=== PATIENT | female | born 1955 | race Caucasian/White ===

== ENCOUNTER 2018-01-22 10:05 | Inpatient (IN) | payer OTHER, MEDICARE ==
[~2018-01-22] VITALS: Ht 162.6 cm; Wt 68.0 kg
[~2018-01-22 10:05] MED LIST: ASACOL400 MG PO; ASPIRIN EC81 M1 PO; ATORVASTATIN CA10 MG; ATORVASTATIN CA10 MG PO; AUGMENTIN 875875 MG PO; BENADRYL ALLERG25 MG PO; BENZTROPINE ME0.5 M1 PO; BENZTROPINE1 MG PO; GABAPENTIN TAB600 MG PO; GABAPENTIN300 M2 PO; GABAPENTIN300 MG; HALOPERIDOL10 M1 PO; LEVOTHROID0.1 MG PO; LEVOTHYROXINE0.1 MG PO; LEVOTHYROXINE0.2 M2; LEVOTHYROXINE0.2 M2 PO; LEVOTHYROXINE0.2 MG PO; LEVOTHYROXINE100 MC1 PO; LEVOTHYROXINE150 MCG PO; LEVOTHYROXINE25 MCG PO; LIPITOR40 M1 PO; LITHIUM CARB300 MG PO; LITHIUM CARBON300 M3; LITHIUM CARBON300 M3 PO; LITHIUM CARBON300 M4 PO; LITHIUM CARBON450 MG PO; METFORMIN HCL1000 M1 PO; METFORMIN HCL500 MG PO; METFORMIN HYDR500 M1; OLANZAPINE15 MG; OLANZAPINE15 MG PO; PROPRANOLOL HCL10 M1 PO; QUETIAPINE FUM200 MG; QUETIAPINE FUM300 MG PO; RISPERIDONE2 M1 PO; SEROQUEL (MONO200 MG PO; SYNTHROID137 MCG PO; TEGRETOL XR200 M1 PO; TRAZODONE HCL50 M1 PO; ZOCOR40 M1 PO
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
[2018-01-22 11:33] LABS: ABSOLUTE BASOPHIL COUNT 0 /CUMM (0.0-0.2); ABSOLUTE EOSINOPHIL COUNT 0 /CUMM (0.0-0.7); ABSOLUTE LYMPH COUNT 1.3 /CUMM (1.2-3.4); ABSOLUTE MONOCYTE COUNT 0.7 /CUMM (0.10-0.60); BASOPHIL % 0.4 % (0.0-2.0); EOSINOPHIL % 0.2 % (0-5); GRANULOCYTE % 74.2 % (42.2-75.2); HEMATOCRIT 41.3 % (37-47); MEAN CORPUSCULAR HGB 31.1 PG (27.0-31.0); MEAN CORPUSCULAR HGB CONC 33.5 G/DL (33.0-37.0); MEAN CORPUSCULAR VOLUME 92.8 FL (81.0-99.0); MEAN PLATELET VOLUME 7.9 FL (7.4-10.4); PLATELET COUNT 171 /CUMM (130-400); RBC DISTRIBUTION WIDTH 15.1 % (11.5-14.5); RED BLOOD CELL CT 4.45 /CUMM (4.20-5.40); WHITE BLOOD CELL COUNT 8.1 /CUMM (4.8-10.8)
--- NOTE | 2018-01-22 21:37 | ED PSY CRISIS COLLATERAL NOTE ---
Collateral Note Collateral Note Family/Inform/Avril Contacts: The niece Erma Vieira [phone] states the patient has been making suicidal comments stating I want to . The niece reports having a conversation with her daughter Luci to call 911 to address her thoughts of suicide. She reports the patient being depressed and homeless and was living in a pay by night hotel.
--- NOTE | 2018-01-22 21:38 | ED PSYCH CRISIS CONSULTATION ---
Crisis Consult Basic Assessment Date of Consult: 01/22/18 Responsible Person/Accompanied By: self Insurance Authorization: Insurance #1: Insurance name: MEDICARE A Phone number: Policy number: [id number] Group number: Authorization number: ED Provider: Patient's ED Provider: Solitario Keita DO Primary Care Physician: Patient's PCP: Hadley Linda MD PCP's Current Psychiatrist: Cayden Reyes MD Chief Complaint: Psychiatric Related Complaint Patient's Quote: " I had to " Present Illness: Patient is a 63 year old female BIBA on a PEER for suicide ideation after her daughter and niece called 911. Patient is homeless and was sleeping in her car at her daughter home in the driveway. The niece states the patient has been making suicidal comments stating I want to . The niece reports the patient has been sleeping at pay by [employer] hotels for a few months and most recently living in her car. This clinician met with patient who presents as delusional, disorganized, and depressed. The patient reports my Fernandez is my doctor and reports previous psychiatric admission not loving my . The patient reports hearing voices in her head for a few weeks stating I had to . " I will have my kill me". The patient has a long history of psychiatric hospitalization at [facility] dating back to 2009. The patient was a poor historian and unable to provide a treatment history. The patient provided a negative toxicology screen and denied any substance abuse treatment and history. Patient's Address: [address] [place] [address] Other Phone Number: Who Do You Live With? Other (see notes) (homeless living a car) Family/Informants Interviewed: Niece Erma Vieira [phone] Allergies - Coded Allergies: olanzapine (Severe, PT REPORTS IT MADE HER LAME LED TO HOSPITALAZATION 12/20/15) Current Medications - Scheduled Medications Aspirin (Ecotrin*) 81 MG TABLET. 1 TAB PO DAILY HEART/BLOOD (Reported) Entered as Reported by ELY SILVESTRE MD on 06/28/14 1128 Atorvastatin Calcium (Lipitor) 40 MG TABLET 1 TAB PO QPM CHOLESTEROL ( Reported) Entered as Reported by Ciara Zurita on 08/08/161957 Benztropine Mesylate 0.5 MG TABLET 1 TAB PO QAM AKATHISIA #90 (Reported) Entered as Reported by Ciara Zurita on 08/08/161919 Benztropine Mesylate 0.5 MG TABLET 2 TAB PO QPM AKATHISIA (Reported) Entered as Reported by Ciara Zurita on 08/08/161920 Carbamazepine (Tegretol XR) 200 MG TAB.ER.12H 1 TAB PO BID MENTAL HEALTH #60 (Reported) Entered as Reported by Ciara Zurita on 08/08/161999 Levothyroxine Sodium (Synthroid) 137 MCG TABLET 1 TAB PO DAILY THYROID ( Reported) Entered as Reported by Ciara Zurita on 08/08/161958 Metformin HCl 1,000 MG TABLET 1 TAB PO BID DIABETES #60 (Reported) Entered as Reported by Hafsa James on 06/02/16 170 Propranolol HCl 10 MG TABLET 1 TAB PO BID BP (Reported) Entered as Reported by Ciara Zurita on 08/08/161922 Risperidone 2 MG TABLET 1 TAB PO BID MENTAL HEALTH #60 (Reported) Entered as Reported by Ciara Zurita on 08/08/161958 Scheduled PRN Medications Trazodone HCl 50 MG TABLET 1 TAB PO QHS PRN MENTAL HEALTH/SLEEP (Reported) Entered as Reported by Ciara Zurita on 08/08/162000 Laboratory Results: Laboratory Tests 01/22/18 1830: Urine Opiates Screen < 100, Methadone Screen < 40, Barbiturate Screen < 60, Ur Phencyclidine Scrn < 6.00, Amphetamines Screen < 100, U Benzodiazepines Scrn < 85, Urine Cocaine Screen < 50, Urine Cannabis Screen < 5.00 01/22/18 1643: Lipase Cancelled 01/22/18 1120: Anion Gap 17 H, Estimated GFR > 60, BUN/Creatinine Ratio 36.7 H, Glucose 110 H, Calcium 9.5, CBC w Diff NO MAN DIFF REQ, RBC 4.45, MCV 92.8, MCH 31.1 H, MCHC 33.5, RDW 15.1 H, MPV 7.9, Gran % 74.2, Lymphocytes % 16.3 L, Monocytes % 8.9, Eosinophils % 0.2, Basophils % 0.4, Absolute Granulocytes 6.0, Absolute Lymphocytes 1.3, Absolute Monocytes 0.7 H, Absolute Eosinophils 0, Absolute Basophils 0, Serum Alcohol < 10.0 Past History Past Medical History Neurological: NONE (3 older sibs have Parkinson's), peripheral neuropathy EENT: NONE Cardiovascular: hypertension, hyperlipidemia Respiratory: NONE Gastrointestinal: NONE Hepatic: NONE Renal: NONE Musculoskeletal: NONE Psychiatric: depression, schizo affective disorder Endocrine: Hypothyroidism Blood Disorders: NONE Cancer(s): NONE 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 Past Surgical History Surgical History: non-contributory Psychosocial History Strengths/Capabilities: Supportive family Physical Limitations (Interventions): none Psychiatric Treatment History Psych Treatment Psychiatric Treatment Yes Inpatient Treatment Yes Outpatient Treatment Yes Location of Treatment [facility] Reason for Treatment Schizoaffective disorder Dates of Treatment 2016 Response to Treatment poor Diagnosis by History: Schizoaffective Disorder bipolar type Substance Use/Abuse History Drug Use/Abuse Substances Used/Abused No First Use none Last Used none How much used/taken none How often none For how long none Route of use none Substance Abuse Treatment Substance Abuse Treatment Past Substance Abuse [place] No Inpatient Treatment No Outpatient Treatment No Location of Treatment none Reason for Treatment none Dates of Treatment none Current Mental Status Mental Status Orientation: Person, Place Affect: Depressed, Hopeless, Sad Speech: Soft Neuro-vegetative: Appetite Decreased Appearance Appearance- Dress/Hygiene: Dressed in hospital clothing Behaviors Thought Process: Disorganized Thought Content: Auditory Hallucinations Memory: Short term memory Insight: Poor SI/HI Risk Assessment Past Suicidal Ideation/Attempts Yes Current Suicidal Ideation/Att Yes Past Homicidal Ideation/Att: No Current Homicidal Ideation/Attempts No Degree of Intent: Plan, States Intent Danger To: Self Gravely Disabled: Inability, Lack of Insight, Poor Impulse Control, Poor Judgment Risk Factors: age (under 24/over 65), SA/MH hospitalized Lethality Ratin PTSD Checklist PTSD Score: PTSD Score: Response Value Disturbing memories,thoughts,images of stressful experience? Not at all 1 Disturbing dreams of stressful experience from past? Not at all 1 Suddenly acting/feeling as if reliving stressful experience? Not at all 1 Total 3 PTSD Done? pt unable to participate ED Management Sitter: Yes Restraints: No DSM5/PS Stressors/Medical Prob Diagnosis' (DSM 5, Stressors, Medical): Schizoaffective Bipoarl Type F25.9 Current GAF: 23 Comments: Patient presents to the emergency room BIBA on a PEER after family called 911 for suicide ideation. Patient reports hearing voices " i had to ", delusional , disorganized and dpressed. Consulted with dr. Jeanmarie Reyes for the patient to be admitted inpatient for psychiatrist treatment. Departure Disposition Psych Medical Clearance Date: 01/22/18 Medically Cleared at: 1999 Time Started: 1999 Time Ended: 2099 Psychiatrist Consulted: Cayden Reyes MD Date Disposition Established: 01/22/18 Time Disposition Established: 2149 Plan for Disposition - Modality: Inpatient Psychiatry Facility: [facility] Rationale for Disposition: Patient presents to the emergency room BIBA on a PEER after family called 911 for suicide ideation. Patient reports hearing voices " i had to ", delusional , disorganized and dpressed. Consulted with dr. Jeanmarie Reyes for the patient to be admitted inpatient for psychiatrist treatment. Type of IP Admission: PEC Referrals Hadley Linda MD (PCP/Family)
--- NOTE | 2018-01-22 22:14 | IP CRISIS DIAG ASSESS PSYCH ---
See Addendum Diagnostic Assessment Basic Assessment Insurance Authorization: Insurance #1: Insurance name: MEDICARE A Phone number: Policy number: [id number] Group number: Authorization number: Primary Care Physician: Patient's PCP: Hadley Linda MD PCP's Patient's Quote: " I had to " Present Illness: Patient is a 63 year old female BIBA on a PEER for suicide ideation after her daughter and niece called 911. Patient is homeless and was sleeping in her car at her daughter home in the driveway. The niece states the patient has been making suicidal comments stating I want to . The niece reports the patient has been sleeping at pay by nights hotels for a few months and most recently living in her car. This clinician met with patient who presents as delusional, disorganized, and depressed. The patient reports my Fernandez is my doctor and reports previous psychiatric admission not loving my . The patient reports hearing voices in her head for a few weeks stating I had to . " I will have my kill me". The patient has a long history of psychiatric hospitalization at [facility] dating back to 2009. The patient was a poor historian and unable to provide a treatment history. The patient provided a negative toxicology screen and denied any substance abuse treatment and history. Patient's Address: [address] [place] [address] Other Phone Number: Who Do You Live With? Other (see notes) (homeless living a car) Feel Safe Where You Live? Yes Feel Safe in Your Relationship Yes Marital Status: Do You Have Children? Yes Ages? 40 Primary Language? Colombian Language(s) Spoken At Home: Colombian Family/Informants Interviewed: Nirhianna Vieira [phone] Allergies - Coded Allergies: olanzapine (Severe, PT REPORTS IT MADE HER LAME LED TO HOSPITALAZATION 12/20/15) Current Medications - Scheduled Medications Aspirin (Ecotrin*) 81 MG TABLET. 1 TAB PO DAILY HEART/BLOOD (Reported) Entered as Reported by KONRAD WANG,ELY on 06/28/14 1128 Atorvastatin Calcium (Lipitor) 40 MG TABLET 1 TAB PO QPM CHOLESTEROL ( Reported) Entered as Reported by Ciara Zurita on 08/08/161957 Benztropine Mesylate 0.5 MG TABLET 1 TAB PO QAM AKATHISIA #90 (Reported) Entered as Reported by Ciara Zurita on 08/08/161919 Benztropine Mesylate 0.5 MG TABLET 2 TAB PO QPM AKATHISIA (Reported) Entered as Reported by Ciara Zurita on 08/08/161920 Carbamazepine (Tegretol XR) 200 MG TAB.ER.12H 1 TAB PO BID MENTAL HEALTH #60 (Reported) Entered as Reported by Ciara Zurita on 08/08/161999 Levothyroxine Sodium (Synthroid) 137 MCG TABLET 1 TAB PO DAILY THYROID ( Reported) Entered as Reported by Ciara Zurita on 08/08/161958 Metformin HCl 1,000 MG TABLET 1 TAB PO BID DIABETES #60 (Reported) Entered as Reported by Hafsa James on 06/02/16 170 Propranolol HCl 10 MG TABLET 1 TAB PO BID BP (Reported) Entered as Reported by Ciara Zurita on 08/08/161922 Risperidone 2 MG TABLET 1 TAB PO BID MENTAL HEALTH #60 (Reported) Entered as Reported by Ciara Zurita on 08/08/161958 Scheduled PRN Medications Trazodone HCl 50 MG TABLET 1 TAB PO QHS PRN MENTAL HEALTH/SLEEP (Reported) Entered as Reported by Ciara Zurita on 08/08/162000 Lab Results: Laboratory Tests 01/22/18 1830: Urine Opiates Screen < 100, Methadone Screen < 40, Barbiturate Screen < 60, Ur Phencyclidine Scrn < 6.00, Amphetamines Screen < 100, U Benzodiazepines Scrn < 85, Urine Cocaine Screen < 50, Urine Cannabis Screen < 5.00 01/22/18 1643: Lipase Cancelled 01/22/18 1120: Anion Gap 17 H, Estimated GFR > 60, BUN/Creatinine Ratio 36.7 H, Glucose 110 H, Hemoglobin A1c Pending, Calcium 9.5, Triglycerides Pending, Cholesterol Pending, LDL Cholesterol, Calc Pending, HDL Cholesterol Pending, Cholesterol/HDL Ratio Pending, TSH &T3 &Free T4 Intrp Pending, CBC w Diff NO MAN DIFF REQ, RBC 4.45, MCV 92.8, MCH 31.1 H, MCHC 33.5, RDW 15.1 H, MPV 7.9, Gran % 74.2, Lymphocytes % 16.3 L, Monocytes % 8.9, Eosinophils % 0.2, Basophils % 0.4, Absolute Granulocytes 6.0, Absolute Lymphocytes 1.3, Absolute Monocytes 0.7 H, Absolute Eosinophils 0, Absolute Basophils 0, Valproic Acid Pending, Serum Alcohol < 10.0 Toxicology Screen Completed? Yes Results: negative Past History Past Medical History Medical History: Diabetes Past Surgical History Surgical History non-contributory Abuse/Trauma History Trauma History/Current Trauma: Denies Legal History Current Legal Status: none Have you ever been arrested? 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 Psychosocial History Strengths/Capabilities: Supportive family Physical Limitations (Interventions): none Psychiatric Treatment History Psych Treatment Psychiatric Treatment Yes Inpatient Treatment Yes Outpatient Treatment Yes Location of Treatment [facility] [facility] Reason for Treatment Schizoaffective disorder Dates of Treatment 2016 Response to Treatment poor Diagnosis by History: Schizoaffective Disorder bipolar type Risk Factors: age (under 24/over 65), SA/ hospitalized Substance Use/Abuse History Drug Use/Abuse minimum 12mo Hx Substances Used/Abused No First Use none Last Used none How much used/taken none How often none For how long none Route of use none Substance Abuse Treatment Substance Abuse Treatment Past Substance Abuse TX No Inpatient Treatment No Outpatient Treatment No Location of Treatment none Reason for Treatment none Dates of Treatment none Sexual History Sexually Active Yes # of partners 1 Sexual Orientation Heterosexual Use of Protection No Sexual Concerns: None Education History Highest Level of Education: some college Preferred Learning Style: auditory Current Mental Status Mental Status Orientation: Person, Place Affect: Depressed, Hopeless, Sad Speech: Soft Neuro-vegetative: Appetite Decreased Appearance Appearance- Dress/Hygiene: Dressed in hospital clothing Behaviors Thought Process: Disorganized Thought Content: Auditory Hallucinations Memory: Short term memory Insight: Poor SI/HI Risk Assessment - Minimum 6mo History- Past Suicidal Ideation/Attempts Yes Current Suicidal Ideation/Att Yes Past Homicidal Ideation/Att: No Current Homicidal Ideation/Attempts No Degree of Intent: Plan, States Intent Danger To: Self Gravely Disabled: Inability, Lack of Insight, Poor Impulse Control, Poor Judgment Risk Factors: age (under 24/over 65), SA/ hospitalized Lethality Ratin Needs/Init TX Plan/Goals: medication evaluation and stablization , individual and group counseling, family education and family meeting, discharge planning. AUDIT-C Questionnaire: AUDIT-C Questionnaire: Response Value ETOH use in the past year Never 0 # drinks typical/day Doesn't Drink 0 6 or > drinks per occasion Never 0 Total 0 DSM5/PS Stressors/Medical Prob Diagnosis' (DSM 5, Stressors, Medical): Schizoaffective Bipoarl Type F25.9 Current GAF: 23 Comments: Patient presents to the emergency room BIBA on a PEER after family called 911 for suicide ideation. Patient reports hearing voices " i had to ", delusional, disorganized and dpressed. Consulted with dr. Jeanmarie Reyes for the patient to be admitted inpatient for psychiatrist treatment.
[2018-01-23 11:48] VITALS: BP 121/78
--- NOTE | 2018-01-23 13:28 | History & Physical ---
General Information and HPI MD Statement: I have seen and personally examined ELIZABETH ANGELO and documented this H&P. The patient is a 63 year old F who presented with a patient stated chief complaint of suicidal statements. "I want to " because "I'm a bad and disgusting". Source of Information: patient, family, old records Exam Limitations: unable to give history History of Present Illness: 63-year-old white female brought in by ambulance under PERR for suicidal ideations after the daughter knees called 911 patient is homeless was sleeping in her car at the daughter's home in the driveway she told her knees "I want to patient is delusional disorganized and depressed and hearing voices for all those reasons is admitted for evaluation and treatment Allergies/Medications Allergies: Coded Allergies: olanzapine (Severe, PT REPORTS IT MADE HER LAME LED TO HOSPITALAZATION 12/20/15) Home Med list Aspirin (Ecotrin*) 81 MG TABLET.DR 1 TAB PO DAILY HEART/BLOOD (Reported) Atorvastatin Calcium (Lipitor) 40 MG TABLET 1 TAB PO QPM CHOLESTEROL ( Reported) Benztropine Mesylate 0.5 MG TABLET 1 TAB PO QAM AKATHISIA (Reported) Benztropine Mesylate 0.5 MG TABLET 2 TAB PO QPM AKATHISIA (Reported) Carbamazepine (Tegretol XR) 200 MG TAB.ER.12H 1 TAB PO BID MENTAL HEALTH ( Reported) Levothyroxine Sodium (Synthroid) 137 MCG TABLET 1 TAB PO DAILY THYROID ( Reported) Metformin HCl 1,000 MG TABLET 1 TAB PO BID DIABETES (Reported) Propranolol HCl 10 MG TABLET 1 TAB PO BID BP (Reported) Risperidone 2 MG TABLET 1 TAB PO BID MENTAL HEALTH (Reported) Trazodone HCl 50 MG TABLET 1 TAB PO QHS PRN MENTAL HEALTH/SLEEP (Reported) Compliance With Home Meds: UNKNOWN Past History Travel History Traveled to [place] past 21 day No Medical History Neurological: NONE (3 older sibs have Parkinson's), peripheral neuropathy EENT: NONE Cardiovascular: hypertension, hyperlipidemia Respiratory: NONE Gastrointestinal: NONE Hepatic: NONE Renal: NONE Musculoskeletal: NONE Psychiatric: depression, schizo affective disorder Endocrine: Hypothyroidism Blood Disorders: NONE Cancer(s): NONE 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 Other Services at Home: Nursing ETOH Use: denies use Illicit Drug Use: denies illicit drug use Review of Systems Review of Systems Constitutional: Reports: see HPI. Exam & Diagnostic Data Last 24 Hrs of Vital Signs/I&O Vital Signs Date Time Temp Pulse Resp B/P B/P Pulse O2 O2 Flow FiO2 Mean Ox Delivery Rate 01/23 1148 83 121/78 01/22 2211 96.9 104 14 114/62 98 Room Air 01/22 2022 98.0 78 16 134/71 95 Room Air 01/22 1823 98.3 85 18 136/76 94 Room Air 01/22 1609 98.5 77 16 136/74 97 Room Air 01/22 1408 98.7 82 14 134/71 100 Room Air Intake & Output 01/23 1600 01/23 0800 01/23 0000 Intake Total Output Total Balance Patient 150 lb Weight Physical Exam General Appearance Alert, laying in bed not talkative but when asked if she knew who I was she said yes Skin No Rashes HEENT PERRLA, EOMI Neck Supple, No JVD, +2 Carotid Pulse wo Bruit, No LAD Lymphatic Axillary nl, Cervical nl Cardiovascular Regular Rate, No Murmurs Lungs Clear to Auscultation Abdomen Normal Bowel Sounds, Soft, No Tenderness Neurological Exam Findings: not tested Cranial Nerves II through XII: Intact Extremities No Cyanosis, No Edema Vascular Normal Pulses, Pulses Symmetrical Last 24 Hrs of Labs/Cordell: Laboratory Tests 01/22/18 1830: Urine Opiates Screen < 100, Methadone Screen < 40, Barbiturate Screen < 60, Ur Phencyclidine Scrn < 6.00, Amphetamines Screen < 100, U Benzodiazepines Scrn < 85, Urine Cocaine Screen < 50, Urine Cannabis Screen < 5.00 01/22/18 1643: Lipase Cancelled Assessment/Plan As Ranked By This Provider Problem List: 1. Major depression 2. Schizoaffective disorder Miscellaneous Miscellaneous Documentation Attending Case Discussed With: Brittney WANG,Vince Primary Care Physician: Hadley Linda MD Patient sees these Specialists Psychiatry Level of Patient Care: [facility] Consults Needed: Consulting Specialty: Psychiatry Consulting Physician: Dr. Reyes Reason for Consult: depression and suicidal statements
--- NOTE | 2018-01-23 14:17 | SOCIAL WORKER PROG NOTE PSYCH ---
Social Work Progress Note Progress Note Attempted to see patient to complete social history for her. Patient was lying in bed, isolating. She stated that she did not wish talk--and couln't talk -- at this time as she was too depressed. Patient was curteous in her refusal. Patient and myself have had a very positive therapeutic relationship for many years; but patient declined to speak.
--- NOTE | 2018-01-23 14:37 | SOCIAL WORKER PROG NOTE PSYCH ---
Social Work Progress Note Progress Note Pt laying in bed, would not ambulate and shook her head in regards to wanting to meet, she shook her head no, and would not sit up and refused a lengthy conversation. Pt is familiar to this quality analyst/technical writer, and would suggest she is responding to voices and is having trouble managing right now. Staff informed me she has not eaten or gotten out of bed all day. Will continue to monitor.
--- NOTE | 2018-01-23 15:37 | CPS PROVIDER INIT ASMT PSYCH ---
Psychiatric Admission It Infrastructure Architect's Note Reviewed: Yes Patient Seen and Examined: Yes Identifying Information: Patient is a 63 year old female BIBA on a PEER for suicide ideation after her daughter and niece called 911. Chief Complaint: "I had to " Reaction to Hospitalization: The patient was admitted on 15 day physician emergency certificate History of Present Illness Onset of Illness: Patient is homeless and was sleeping in her car at her daughter home in the driveway. The niece states the patient has been making suicidal comments stating met with patient who presents as delusional, disorganized, and depressed. The patient reports my Fernandez is my doctor and reports previous psychiatric admission not loving my . The patient reports hearing voices in her head for a few weeks stating I had to . " I will have my kill me". The patient has a long history of psychiatric hospitalization at [facility] dating back to 2009. The patient was a poor historian and unable to provide a treatment history. The patient provided a negative toxicology screen and denied any substance abuse treatment and history. Circumstances Leading to Admission: See above Problem(s) Justifying Need for Admission: See above Past Psychiatric History Past Diagnosis(es)- if any: Schizoaffective disorder bipolar type Past Precipitating Factors- if any: Noncompliance with medications, unstable housing - Include inpatient and outpatient treatment Treatment History: The patient has been inpatient at [facility] psychiatric unit almost a dozen times in the past few years History of Suicide Attempts or Gestures The [facility] electronic health record indicates that she and her previous admissions it was noted that he she has no history of prior suicide attempts Substance Abuse History: Alcohol last used in July 2014. Patient denies use of tobacco, alcohol and drugs. Allergies: Coded Allergies: olanzapine (Severe, PT REPORTS IT MADE HER LAME LED TO HOSPITALAZATION 12/20/15) Home Med List: Aspirin (Ecotrin*) 81 MG TABLET. 1 TAB PO DAILY HEART/BLOOD (Reported) Entered as Reported by KONRAD WANG,[facility] on 06/28/14 1128 Atorvastatin Calcium (Lipitor) 40 MG TABLET 1 TAB PO QPM CHOLESTEROL ( Reported) Entered as Reported by Ciara Zurita on 08/08/161957 Benztropine Mesylate 0.5 MG TABLET 1 TAB PO QAM AKATHISIA #90 (Reported) Entered as Reported by Ciara Zurita on 08/08/161919 Benztropine Mesylate 0.5 MG TABLET 2 TAB PO QPM AKATHISIA (Reported) Entered as Reported by Ciara Zurita on 08/08/161920 Carbamazepine (Tegretol XR) 200 MG TAB.ER.12H 1 TAB PO BID MENTAL HEALTH #60 (Reported) Entered as Reported by Ciara Zurita on 08/08/161999 Levothyroxine Sodium (Synthroid) 137 MCG TABLET 1 TAB PO DAILY THYROID ( Reported) Entered as Reported by Ciara Zurita on 08/08/161958 Metformin HCl 1,000 MG TABLET 1 TAB PO BID DIABETES #60 (Reported) Entered as Reported by Hafsa James on 06/02/16 170 Propranolol HCl 10 MG TABLET 1 TAB PO BID BP (Reported) Entered as Reported by Ciara Zurita on 08/08/161922 Risperidone 2 MG TABLET 1 TAB PO BID MENTAL HEALTH #60 (Reported) Entered as Reported by Ciara Zurita on 08/08/161958 Trazodone HCl 50 MG TABLET 1 TAB PO QHS PRN - Include any medical condition(s) that may - impact the patient's recovery/remission Past History Medical History Neurological: NONE (3 older sibs have Parkinson's), peripheral neuropathy EENT: NONE Cardiovascular: hypertension, hyperlipidemia Respiratory: NONE Gastrointestinal: NONE Hepatic: NONE Renal: NONE Musculoskeletal: NONE Psychiatric: depression, schizo affective disorder Endocrine: Hypothyroidism Blood Disorders: NONE Cancer(s): NONE 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 History of MRSA: No History of VRE: No History of CDIFF: No Isolation History: Standard Surgical History Surgical History: non-contributory Psychiatric Family/Social Hx Family History Psychiatric Illness: The record indicated no psychiatric history in the family Substance Use: The record indicated no history of substance abuse in the family Suicides: Record indicated no suicides in the family Social History Living Situation: Reportedly has been living in her car Significant Relationships (family/friends): Daughter and niece Education: Unknown Vocation/Occupation: Unemployed on disability Legal: No current legal entanglements Healthly Behaviors Screening Tobacco Screening Tobacco Use from ED Docu: Never used - If tobacco counseling indicated - the following topics are required. - #1 Recognizing dangerous situations. - #2 Coping Skills. - #3 Basic information about quitting. Status of Tobacco Cessation Counseling: Not Applicable Cessation Med Status Not Applicable Alcohol Screening - ETOH screen POS if BAL >=80 or Audit-C>= M4/F3 Audit-C Score from Diag Assess: 0 Blood Alcohol Level: Laboratory Tests 01/23 1120 Toxicology Serum Alcohol (<10 MG/DL) < 10.0 Alcohol Use Screening Results: Neg per Audit C &/or BAL - If ETOH counseling indicated - the following topics are required. - #1 Express concern about the patient's - drinking at unhealthy levels, include informing - of national norms for moderate drinking: - men <= 14 drinks/week, max 4 drinks/occasion - women <= 7 drinks/week, max 3 drinks/occasion - #2 Providing feedback, including linking alcohol to - negative physical effects (liver injury, hypertension) - negative emotional effects (relationship problems and - depression) - negative occupational consequences (reduced work - performance) - #3 Advising the patient to abstain from alcohol or - to drink below national norms for moderate drinking - (as listed above). Status of ETOH Use Counseling: N/A B/C NO ETOH Use Metabolic Screening - Screen if on a Neuroleptic Medication - Metabolic screening should include: - Blood Pressure, BMI, Glucose or Hgb A1c, & a - Lipid profile from within the past 365 days. Metabolic Screening Patient on a neuroleptic(s) . Enter below results for Hemoglobin A1C, and lipid panel if obtained during the last 365 days. BMI: 25.700 Blood Pressure: 118/62 Laboratory Results From [facility] (If applicable): Lab Cholesterol 183 MG/DL 01/22/18 1120 Cholesterol/HDL Ratio 3 % 01/22/18 1120 HDL Cholesterol 59 mg/dL 01/22/18 1120 Hemoglobin A1c 6.0 % H 01/22/18 1120 LDL Cholesterol, Calc 83 mg/dL 01/22/18 1120 Triglycerides 209 mg/dL H 01/22/18 1120 Exam and Plan Mental Status Examination Ambulation Status: The patient was lying in bed when I interviewed her Appearance: The patient had visible tardive dyskinesia of the oral facial muscles Attitude towards examiner: She was calm and cooperative Psychomotor activity: She has abnormal movements of the oral facial muscles Behavior: There was no bizarre behaviors during the interview Quality of speech: The speech was incoherent Affect: Patient showed constricted affect Mood: The patient was unable to answer whether she was depressed on Suicidal Ideation: Denied Homicidal Ideation: Denied Hallucinations: Unable to determine Paranoid/Delusional Material: She denied feeling paranoid, but there were delusions described in the crisis intervention evaluation Difficulties with thought organization: She was incoherent Insight: Poor insight Judgment: Poor judgment Orientation: Alert but was unable to answer the orientation questions Cognition: Impaired cognition including impaired attention concentration and information processing Memory Function: Unable to determine Estimate of intellectual functioning: Unable to determine Assets/Strengths Patient Identified Assets/Strengths: The patient was calm, and friendly /likable Impression/Plan Impression and Plan: A 63-year-old white female with history of schizoaffective disorder who presented with what seemed to be in an acute psychotic/manic state - Include all active medical diagnosis that require tx DSM 5 Diagnosis(es): Schizoaffective disorder, bipolar type - Initial Tx Plan for Active Psych & Medical Conditions Treatment Plan: Inpatient psychiatric care with safety checks every 15 minutes Resume medications Biopsychosocial assessment, collateral, and aftercare planning and Nursing assessments, vital signs, and patient education and Patient will be evaluated daily by a psychiatrist for mental status evaluation and medication monitoring - Factors that would help patient function - in a less restrictive setting. Factors: The patient will be discharged once his psychotic symptoms are under reasonable control
[2018-01-23 17:31] VITALS: BP 118/62
[2018-01-23 20:00] VITALS: BP 135/72
[2018-01-24 08:33] VITALS: BP 141/63
[2018-01-24 12:27] VITALS: BP 122/58
--- NOTE | 2018-01-24 14:21 | CP SOUTH PROGRESS NOTE PSYCH ---
Psych (Inpt) Progress Note Progress Note The patient's progress, treatment, and aftercare planning were discussed and the treatment team meeting this morning. The treatment team included nursing staff, social work staff, group and activity therapy staff, and psychiatrist. Vital Signs Date Time Temp Pulse B/P Pulse O2 O2 Flow FiO2 01/24 1227 96 122/58 01/24 0833 98.0 92 141/63 01/23 2000 96.8 96 135/72 01/23 1731 83 118/62 Mental Status Examination The patient was up and about earlier in the day but she did not want to talk because she had to take a shower she said. When I interviewer in the afternoon she was lying in bed. The patient was sleeping but easily arousable. She had visible tardive dyskinesia of the oral facial muscles. Regular earlier in the day when she was wide awake she had parkinsonian tremors. She was calm and cooperative, pleasant She has abnormal movements of the oral facial muscles (dyskinesia) as well as parkinsonian tremors There was no bizarre behaviors during the interview The speech was incoherent, the patient showed constricted affect She denied feeling depressed, but her answers seemed to be unreliable and still somewhat disorganized Denied suicidal ideation and denied homicidal Ideation, I did not understand from her answer whether she was having hallucinations or not. She denied feeling paranoid, but there were delusions described in the crisis intervention evaluation She was incoherent Poor insight Poor judgment Alert but was unable to answer the orientation questions Impaired cognition including impaired attention concentration and information processing I was unable to test her memory Functions Assessment: A 63-year-old white female with history of schizoaffective disorder who presented with what seemed to be in an acute psychotic/manic state DSM 5 Diagnosis(es): Schizoaffective disorder, bipolar type Treatment Plan: Start Zyprexa 5 mg at bedtime Biopsychosocial assessment, collateral, and aftercare planning and Nursing assessments, vital signs, and patient education and Patient will be evaluated daily by a psychiatrist for mental status evaluation and medication monitoring Biopsychosocial assessment, collateral, and aftercare planning and Nursing assessments, vital signs, and patient education and Patient will be evaluated daily by a psychiatrist for mental status evaluation and medication monitoring
--- NOTE | 2018-01-24 16:03 | SOCIAL WORKER PROG NOTE PSYCH ---
Social Work Progress Note Progress Note Pt states "I'm a bad person, I ruined my families life", pt perseverating over negative thoughts and delusions, continues to isolate and lay in bed most of the day, nursing moved her closer to their station for monitoring... Pt resuing to sit up and meet, expressed that she "is sick and will always be sick". Reminded pt that she is safe and will be taken care of. Pt not at baseline.
[2018-01-24 16:06] VITALS: BP 130/55
[2018-01-24 16:11] VITALS: BP 112/68
[2018-01-24 19:54] VITALS: BP 135/77
[2018-01-25 07:47] VITALS: BP 110/73
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
[2018-01-25 12:27] VITALS: BP 123/72
--- NOTE | 2018-01-25 12:31 | CP SOUTH PROGRESS NOTE PSYCH ---
Psych (Inpt) Progress Note Progress Note The patient's progress, treatment, and aftercare planning were discussed and the treatment team meeting this morning. The treatment team included nursing staff, social work staff, group and activity therapy staff, and psychiatrist. Vital Signs: Blood Pressure 110/73 mmHg, pulse 98 bpm, temperature 97.5F Mental Status Examination The patient was alert and oriented to time, place, and person. She had visible tardive dyskinesia of the orofacial muscles and Parkinsonian tremors of both upper extremities. She was calm and cooperative, and pleasant. There was no bizarre behaviors during the interview Today, Taylor speech was coherent. She did acknowledge that she has been hallucinating and continues to have delusions about her ex-, Adams. Also keeps deferring that to herself as being worthless and ugly and disgusting and that she should be punished She showed more affective expression today including being appropriately tearful during the interview She she reported feeling worthless and depressed, she believes that she should be punished or deserves to be punished. She denied that she has plans to actively end her own life. She denied having violent thoughts or thoughts of homicide against ex- or anyone else She reported that the lies that she was suspecting of having was "taking care of." No longer feels that she actively has lice in her hair. Today she showed some insight into her illness. She also showed better attention and concentration and information processing. And did not seem to have short-term memory impairment. Assessment: A 63-year-old White female with history of schizoaffective disorder who presented with what seemed to be in an acute /disorganized state. She already has shown significant improvement and more coherent and organized. Diagnoses: Schizoaffective disorder, bipolar type Treatment Plan: Increase Zyprexa to 7.5 mg at bedtime Biopsychosocial assessment, collateral, and aftercare planning by UTILITY WORKER FILM PROCESSING Nursing assessments, vital signs, and patient education By RN Patient will be evaluated daily by a psychiatrist for mental status evaluation and medication monitoring
[2018-01-25 16:09] VITALS: BP 123/72
--- NOTE | 2018-01-25 16:22 | SOCIAL WORKER PROG NOTE PSYCH ---
See Addendum Social Work Progress Note Progress Note Met briefly with Rajani - she was doing laundry. She was disheveled, hadno teeth. She was cooperative, appeared depressed. She was asking if she saw me before and gave me $142 would I find her a place to live. She stated "I should have never trusted Fernandez and gone back to him." Need to contact her sister, Erma and daughter for collateral.
[2018-01-25 19:59] VITALS: BP 125/76
[2018-01-26 08:46] VITALS: BP 135/77
[2018-01-26 12:49] VITALS: BP 111/69
--- NOTE | 2018-01-26 14:07 | CP SOUTH PROGRESS NOTE PSYCH ---
Psych (Inpt) Progress Note Progress Note Include the following elements, when applicable: Involvement in the active treatment of the patient with behavioral observations of the patient and the patient's response to the treatment. Review of the ongoing treatment process in the context of the treatment plan. Indication of how multi-disciplinary staff members are carrying out the treatment plan. Plans for future interventions and recommendations for revision of the treatment plan. Liaison with other physicians/providers. Progress Note: Chart reviewed. Progress discussed with nursing staff. Interviewed patient this morning. Patient reports some improvement in AH. "Why do I get these"? Denies med SEs, denies SI/HI. Endorses ongoing poor mood. Vitals and labs reviewed. Findings are: mild tachycardia. Mental status exam: Elderly appearing CF without dentures in mouth. +TD. +UE tremor. Limited eye contact. Quiet and mumbled speech. Mood "bad". Affect dysphoric, odd. TP impoverished. TC without SI/HI. +AH. Cognition was grossly intact. I/J fair. Assessment: A 63-year-old White female with history of schizoaffective disorder who presented with what seemed to be in an acute /disorganized state. She continues to show significant improvement and is more coherent and organized. Diagnoses: Schizoaffective disorder, bipolar type Treatment Plan: Continue zyprexa 7.5 mg QHS and remainder of plan per primary team.
[2018-01-26 16:13] VITALS: BP 132/76
[2018-01-26 20:18] VITALS: BP 129/71
[2018-01-27 08:37] VITALS: BP 141/88
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
[2018-01-27 16:52] VITALS: BP 113/66
[2018-01-27 19:52] VITALS: BP 132/79
[2018-01-28 08:25] VITALS: BP 139/81
--- NOTE | 2018-01-28 08:39 | CP SOUTH PROGRESS NOTE PSYCH ---
Psych (Inpt) Progress Note Progress Note Vital Signs: Vital Signs Date Time Temp Pulse Resp B/P 01/28 1232 80 107/71 01/28 0825 97.1 120 139/81 01/27 1952 96.9 112 132/79 01/27 1652 108 113/66 Dr. Alanis notes for the weekend were reviewed. In the treatment team meeting this morning, patient's progress was reviewed, and the treatment and aftercare plans were reviewed and updated. The treatment team included: RN, HOTEL ENGINEER, group and activity therapy staff, and psychiatrist. Mental Status Examination The patient was alert and oriented to time, place, and person. "I feel mixed," "I see some rays of hope." tardive dyskinesia of the orofacial muscles and Parkinsonian tremors of both upper extremities. She was calm and cooperative, no bizarre behaviors during the interview she was still disorganized, and expressed some delusions acknowledged hallucinations "One ear tells me the truth, and one ear tells me lies" "mariajose is not done yet." stating she needs punishment and began telling a difficult to follow story My granddaughters came to visit yesterday". She reports vague SI and ongoing AH. Denies med side effect. Limited eye contact. Quiet and mumbled speech. Affect dysphoric, o Denies HI. Cognition was grossly intact. feeling worthless and depressed, she believes that she should be punished or deserves to be punished. She denied that she has plans to actively end her own life. She denied having violent thoughts or thoughts of homicide against ex- or anyone else. showed better attention and concentration and information processing, did not seem to have short-term memory impairment. Assessment: A 63-year-old White female with history of schizoaffective disorder who presented with what seemed to be in an acute /disorganized state. She already has shown significant improvement and more coherent and organized. Continues to demonstrate dysphoria with accompanied by delusions and AH. Diagnoses: Schizoaffective disorder, bipolar type Treatment Plan: Increase Zyprexa to 10 mg at bedtime
[2018-01-28 12:32] VITALS: BP 107/71
--- NOTE | 2018-01-28 13:05 | SOCIAL WORKER PROG NOTE PSYCH ---
Social Work Progress Note Progress Note Making some progress, out of bed in the milieu, interacting more socially appropriately. Pt asks "do you think I'm going to get better", and she slightly smiled. Pt reports she went to groups today.
[2018-01-28 15:53] VITALS: BP 115/71
[2018-01-28 20:04] VITALS: BP 111/66
[2018-01-29 08:08] VITALS: BP 129/75
--- NOTE | 2018-01-29 08:26 | CP SOUTH PROGRESS NOTE PSYCH ---
Psych (Inpt) Progress Note Progress Note In the treatment team meeting this morning, patient's progress was reviewed, and the treatment and aftercare plans were reviewed and updated. The treatment team included: RN, JOSEF, group and activity therapy staff, and psychiatrist. Vital Signs: Date Time Temp Pulse B/P 01/29 0808 97.5 75 129/75 Mental Status Examination (14:30): The patient was sleeping, difficult to arouse, as of yesterday, she was still disorganized and expressing delusions acknowledged hallucinations "One ear tells me the truth, and one ear tells me lies" "mariajose is not done yet." stating she needs punishment and began telling a difficult to follow story My granddaughters came to visit yesterday". She reports vague SI and ongoing AH. Denies med side effect. feeling worthless and depressed, she believes that she should be punished or deserves to be punished. She denied that she has plans to actively end her own life. She denied having violent thoughts or thoughts of homicide against ex- or anyone else. Assessment: A 63-year-old White female with history of schizoaffective disorder who presented with what seemed to be in an acute /disorganized state. She already has shown significant improvement and more coherent and organized. Continues to demonstrate dysphoria with accompanied by delusions and AH. Diagnoses: Schizoaffective disorder, bipolar type Treatment Plan: Due to sedation, 1) will reduce gabapentin to 300 mg three times daily 2) Will reduce AM Depakote to 250 mg 3) will D/C PRN Ativan Continue Zyprexa 10 mg at bedtime Diagnoses: Schizoaffective disorder, bipolar type Treatment Plan: Increase Zyprexa to 10 mg at bedtime Schizoaffective disorder, bipolar type Treatment Plan: Increase Zyprexa to 10 mg at bedtime
--- NOTE | 2018-01-29 11:43 | SOCIAL WORKER PROG NOTE PSYCH ---
Social Work Progress Note Progress Note ELIZABETH FarleyMaryanne ANGELO [id number] 1955 ELIZABETH FarleyMaryanne ANGELO [id number] Pended Authorization # Client Authorization # Type of Request [id number] CONCURRENT Date of Admission/ Start of Services Requested From Submission Date 01/22/2018 01/29/2018 01/29/2018
[2018-01-29 12:25] VITALS: BP 132/77
--- NOTE | 2018-01-29 14:52 | CP SOUTH PROGRESS NOTE PSYCH ---
Psych (Inpt) Progress Note Progress Note Addendum to the previous note: patient woke up around 2:45 but had some tachycardia and was feeling lethargic and depressed. Plan: se previous note for changes AND D/C Sinemet I left a message to Dr. Paez to call me to discuss patient's medications
--- NOTE | 2018-01-29 15:33 | SOCIAL WORKER PROG NOTE PSYCH ---
Social Work Progress Note Progress Note Rajani had been in bed most of the day sleeping until late afternoon. Nursing reported her BSL to be low. So they ensured she ate. Rajani sat down next to the fish tank. I introduced myself and told her we would be working together this week. She asked if she would be here the rest of the week? I told her she would be here until she was feeling better. She was slow to respond. She asked for a peice of paper to write something down for me. I gave her some paper, but she had difficulty writing and then said "forget it, it would only cause more problems." I tried to explore what she was referring to. She verbalized that it was Shahnaz's birthday today. I asked who Shahnaz was? She reported it was her neice. I asked if it was her sister's daughter? She said "no my daughter's daughter." This confused me as that would make Shahnaz her Grand daughter. She had difficulty explaining the relationship in a way I could understand. Ultimately she told me she didn't want to cause a problem by calling. I couldn' t really understand what the conflict was about. She stated that she wasn't worth helping, due to being a "disgusting" person. She had some harsh things to say about herself. She appears very hopeless at this time. Reports being significantly depressed for the past week. Tried to provide some hope and encouragement. Encouraged her to keep nourishing her body by drinking water and eating at meals. She did say she was going to shower.
[2018-01-29 15:55] VITALS: BP 118/68
[2018-01-29 20:12] VITALS: BP 129/69
[2018-01-30 08:07] VITALS: BP 120/75
[2018-01-30 12:35] VITALS: BP 138/83
--- NOTE | 2018-01-30 13:27 | CP SOUTH PROGRESS NOTE PSYCH ---
Psych (Inpt) Progress Note Progress Note The patient's progress was reviewed, and the treatment and aftercare plans were reviewed and updated. The treatment team included: RN, JOSEF, group and activity therapy staff, and psychiatrist. Vital Signs: Blood pressure was 138/83 mmHg, pulse was 10 8 bpm, temperature was 96.2F Mental Status Examination (with Janet No LCSW present 13:00-13:25): The patient was alert and oriented to time, place, and person. She is less disorganized but still expressing expressing delusions, including delusional guilt/feeling that she needs to proceed to be punished believes that her grandchildren are going to come tonight and beats her with baseball bats and that they might cut of her toes of great care knees etc. She also acknowledged hallucinations including hearing her sister's voice as well as hearing the voice of Adams who is reportedly an ex-boyfriend or maybe even still a boyfriend She is still making statements about being worthless and "disgusting" and stating she needs punishment She believes that she is going to stay in the hospital until she dies. She is still showing tardive dyskinesia with minimal improvement and also parkinsonian tremors (the parkinsonian tremors have not worsened since that examination of sentiments yesterday) She continues to feel depressed, and she was very tearful during the interview Although she feels that she deserves punishment and deserves to , she denied that she has plans to actively end her own life. She denied having violent thoughts or thoughts of homicide against Adams or anyone else. Assessment: A 63-year-old White female with history of schizoaffective disorder who presented with what seemed to be in an acute /disorganized state. She is more coherent and organized but continues to have auditory hallucinations and delusions. Diagnoses: Schizoaffective disorder, bipolar type Treatment Plan: Continue gabapentin 300 mg three times daily Reduce Depakote to 250 mg twice daily Continue Zyprexa 10 mg at bedtime
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
[2018-01-30 16:01] VITALS: BP 132/70
[2018-01-30 20:00] VITALS: BP 126/69
[2018-01-31 08:10] VITALS: BP 142/87
--- NOTE | 2018-01-31 11:12 | CP SOUTH PROGRESS NOTE PSYCH ---
Psych (Inpt) Progress Note Progress Note The patient's progress was reviewed, and the treatment and aftercare plans were reviewed and updated in the treatment team meeting which included: RN; JOSEF, Group Therapy + Activity therapy staff, and psychiatrist. Vital Signs: Blood pressure: 142/87 mmHg, pulse: 98 bpm, temperature: 96.2F Normal EKG, normal sinus rhythm, QTc 447 mSec Mental Status: The patient was alert and oriented to time, place, and person. although she was still voicing delusions, she was less disorganized, she has irrational feeling of guilt/saying she needs to be punished acknowledged hallucinations making statements about being worthless and "disgusting" and stating she needs punishment Surprisingly, the patient's tardive dyskinesia showed improvement, parkinsonian tremors have not worsened since that discontinuation of Sinemet. continues to feel depressed but she was not tearful during today's interview . Although she feels that she deserves punishment and deserves to , she she asserts that she "would never commit suicide." She denied having violent thoughts or thoughts of homicide against Adams or anyone else. Assessment: A 63-year-old White female with history of schizoaffective disorder was admitted to the inpatient psychiatric unit on 01/22/2018 with what seemed to be in an acute /disorganized state. She is more coherent and organized but continues to have auditory hallucinations and delusions. Diagnoses: Schizoaffective disorder, bipolar type Treatment Plan: Starting tomorrow, 02/01/2018, reduce Depakote to 250 mg once daily at bedtime Continue gabapentin 300 mg three times daily Continue Zyprexa 10 mg at bedtime Continue Lorazepam 1 mg at bedtime
[2018-01-31 12:14] VITALS: BP 136/72
[2018-01-31 15:52] VITALS: BP 133/73
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
[2018-01-31 19:44] VITALS: BP 135/79
[2018-02-01 08:31] VITALS: BP 136/91
--- NOTE | 2018-02-01 08:49 | CP SOUTH PROGRESS NOTE PSYCH ---
Psych (Inpt) Progress Note Progress Note The patient's progress was reviewed, and the treatment and aftercare plans were reviewed and updated in the treatment team meeting which included: RN; JOSEF, Group Therapy + Activity therapy staff, and psychiatrist. Vital Signs: Blood pressure: 136/91 mmHg, pulse: 98 bpm, temperature: 97.4 F Normal EKG, normal sinus rhythm, QTc 447 mSec Mental Status: The patient reported that she is still hearing voices (multiple) She continues to experience paranoid delusions and irrational feeling of guilt/ saying she needs to be punished alert and oriented to time, place, and person. less disorganized, feels worthless and "disgusting" tardive dyskinesia & parkinsonian tremors slightly improved continues to feel depressed but she was not tearful during today's interview . she asserts that she "would never commit suicide." She denied having violent thoughts or thoughts of homicide Assessment: A 63-year-old White female with history of schizoaffective disorder was admitted to the inpatient psychiatric unit on 01/22/2018 with what seemed to be in an acute psychosis /disorganized state. She continues to have auditory hallucinations and delusions but both are slowly improving Diagnoses: Schizoaffective disorder, bipolar type Treatment Plan: D/C Depakote REDUCE gabapentin to 200 mg three times daily increase Zyprexa to 15 mg at bedtime Continue Lorazepam 1 mg at bedtime Continue Lorazepam 1 mg at bedtime
[2018-02-01 12:19] VITALS: BP 133/71
[2018-02-01 16:06] VITALS: BP 127/62
--- NOTE | 2018-02-01 16:43 | SOCIAL WORKER PROG NOTE PSYCH ---
Social Work Progress Note Progress Note I attempted to call her daughter Luci today. I left a message. Rajani was in the community and active in groups today. I told her that I tried to call her daughter and was waiting to connect. She continues to report Luci doesn't like her and how horrible she has been. Asked her to identify something positive today? She said "everyone here was nice to me today." She talked about her daughter's nice qualities. I told her she must have done something right to raise her.
[2018-02-01 20:01] VITALS: BP 129/73
[2018-02-02 08:29] VITALS: BP 126/84
[2018-02-02 12:04] VITALS: BP 122/70
--- NOTE | 2018-02-02 12:46 | CP SOUTH PROGRESS NOTE PSYCH ---
Psych (Inpt) Progress Note Progress Note Include the following elements, when applicable: Involvement in the active treatment of the patient with behavioral observations of the patient and the patient's response to the treatment. Review of the ongoing treatment process in the context of the treatment plan. Indication of how multi-disciplinary staff members are carrying out the treatment plan. Plans for future interventions and recommendations for revision of the treatment plan. Liaison with other physicians/providers. Progress Note: Isolative, watching tv and poorly interacting with peers. Pleasant and cooperative overall, despite low mood and depressed affect. Stated that she is not suicidal but "everyone else around me is, they want to hurt me, I did a lot of bad things in my life." Not actively hallucinating but likely has some voices at times. She stated that she had no issues with sleep, enjoyed her lunch, and had no issues with her meds. MSE: pleasant middle aged woman, some thought blocking, impoverished content of thought, paranoia; TD. cooperative, mood is neutral to down, affect is constricted. Not actively suicidal but paranoid about unspecified others trying to do her harm, though not in the hospital. Insight is poor and judgment is adequate. A: 63 year old woman with a psychotic illness, with residual paranoia, impoverished thinking and evidence of movement disorder. She continues to need inpatient tx with antipsychotics in order to stabilize her mental status. Plan: continue current plan of care.
[2018-02-02 15:51] VITALS: BP 136/65
[2018-02-02 20:03] VITALS: BP 125/73
[2018-02-03 07:54] VITALS: BP 130/73
--- NOTE | 2018-02-03 09:55 | CP SOUTH PROGRESS NOTE PSYCH ---
Psych (Inpt) Progress Note Progress Note Include the following elements, when applicable: Involvement in the active treatment of the patient with behavioral observations of the patient and the patient's response to the treatment. Review of the ongoing treatment process in the context of the treatment plan. Indication of how multi-disciplinary staff members are carrying out the treatment plan. Plans for future interventions and recommendations for revision of the treatment plan. Liaison with other physicians/providers. Progress Note: Said that the other women patients have been super nice to her, but that she hasn't been nice to them because she "talks about myself." She couldn't come up with any positive things about herself so we tried to do some cognitive restructuring around her negative thoughts. She perked up wihen she spoke about her daughter and her grandchildren briefly. She participated in group however had negative thoughts. Stated later that her daughter "talks to me through my ear, she tells me how much she hates me." Then went into a tangent about Adams. MSE: pleasant middle aged woman, with lip smacking and rhythmic hand tremor. Good eye contact, fairly well related. Mood down and affect constricted. Withdrawn initially until started speaking about her delusions. Spoke about her family and Adams being invited to various events sponsored by the President, about having "so much money they won't even use all of it..." and that "they knocked my teeth out because I talked too much." Stated that her daughter "speaks in my ear" but no other hallucinations noted. Stated that despite all of the difficulties she does not feel suicidal or depressed. Insight is poor and judgment is adequate. A: 63 year old woman with a psychotic illness, with residual paranoia, impoverished thinking and evidence of movement disorder. She continues to need inpatient tx with antipsychotics in order to stabilize her mental status. Plan: continue current plan of care. Continue positive reinforcement and socialization.
[2018-02-03 12:02] VITALS: BP 127/66
[2018-02-03 15:34] VITALS: BP 120/50
[2018-02-03 19:41] VITALS: BP 116/68
[2018-02-04 07:45] VITALS: BP 100/53
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
[2018-02-04 12:19] VITALS: BP 123/67
--- NOTE | 2018-02-04 15:54 | SOCIAL WORKER PROG NOTE PSYCH ---
Social Work Progress Note Progress Note The services requested require additional review. You will be contacted regarding the status of this request if further information is needed. An authorization decision will be made within the required timeframes and details of that decision may be found under the member's authorization history. Member Name Member ID Member Subscriber Name Subscriber ID ELIZABETH ALBERTSY [id number] ELIZABETH ANGELO [id number] Pended Authorization # Client Authorization # Type of Request [id number] CONCURRENT Date of Admission/ Start of Services Requested From Submission Date 01/22/2018 02/04/2018 02/04/2018 Level of Service Type of Service Level of Care Type of Care INPATIENT/[facility]patient Hospital Reason Code P77 Provider Name & Address Provider ID Provider Alternate ID NPI # for Authorization GELY WATTERS [id number] N/A [address] [facility] [id number]
[2018-02-04 16:10] VITALS: BP 132/73
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
[2018-02-04 19:54] VITALS: BP 118/64
[2018-02-05 07:41] VITALS: BP 123/70
--- NOTE | 2018-02-05 11:21 | CP SOUTH PROGRESS NOTE PSYCH ---
Psych (Inpt) Progress Note Progress Note The patient's progress, treatment, and aftercare plans were reviewed and updated in the treatment team meeting which included: RN; JOSEF, Group Therapy + Activity therapy staff, and psychiatrist. Mental Status: +Parkinsonian tremors (unchanged from yesterday) The patient was alert and oriented to time, place, and person. She reported that she was still hearing voices. She continues to experience paranoid delusions. The patient seems to be consumed with feelings of worthlessness as well as irrational feelings of guilt. She is making good progress and looked brighter in her affect. And she is this frequently bringing up the issue off thinking that she deserves to be punished or that she is a disgusting or worthless. The patient was less disorganized, she continues to feel worthless and "disgusting" She continues to show tardive dyskinesia & parkinsonian tremors The patient reported that she continues to feel depressed but she was not tearful during today's interview . The patient denied wishing and she asserts that she "would never commit suicide." She denied having violent thoughts or thoughts of homicide. She seems to have reasonable attention and concentration and ability for information processing today. There is no evidence of any significant short- term memory impairments. Assessment: Rajani is a 63-year-old White female who was admitted to the inpatient psychiatric unit on 01/22/2018 with what seemed to be in an acute psychosis / disorganized state. She continues to have auditory hallucinations and delusions. Compared to when she arrived to the inpatient psychiatric unit, the patient seems to have made significant strides, for example the first 2 days she was on the notes in on the unit, she was incoherent. Now, she is more coherent and the symptoms are limited to the hallucinations and the paranoid delusions. Her affect also seems to have brightened and she seems to be taking care of her personal hygiene including wearing makeup this morning. Diagnoses: Schizoaffective disorder, bipolar type Treatment Plan: Increase Artane to 2 mg twice daily for Parkinsonian tremors Continue Gabapentin 200 mg three times daily Continue Zyprexa 15 mg at bedtime Continue Lorazepam 1 mg at bedtime
[2018-02-05 12:23] VITALS: BP 126/69
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
--- NOTE | 2018-02-05 14:23 | SOCIAL WORKER PROG NOTE PSYCH ---
Social Work Progress Note Progress Note Attempted to Call DSS they were not taking calls this afternoon. I gave the info to the patient as well. Will try tomorrow. [phone]
[2018-02-05 15:52] VITALS: BP 135/72
[2018-02-05 20:17] VITALS: BP 121/67
[2018-02-06 07:51] VITALS: BP 130/83
--- NOTE | 2018-02-06 08:38 | CP SOUTH PROGRESS NOTE PSYCH ---
Psych (Inpt) Progress Note Progress Note Vital Signs Date Time Temp Pulse B/P B/P O2 02/06 0751 97.0 98 130/83 02/05 2017 98.1 80 121/67 02/05 1552 100 135/72 The patient's progress, treatment, and aftercare plans were reviewed and updated in the treatment team meeting which included: RN; JOSEF, Group Therapy + Activity therapy staff, and psychiatrist. Mental Status: Rajani continues to voice delusions and continues to describe what seems audio hallucinations +Parkinsonian tremors (unchanged from yesterday) The patient was alert and oriented to time, place, and person. The patient seems to be consumed with feelings of worthlessness & irrational feelings of guilt. She is making good progress and looked brighter in her affect. And she is this frequently bringing up the issue off thinking that she deserves to be punished or that she is a disgusting or worthless. The patient was less disorganized, she continues to feel worthless and "disgusting". She continues to show tardive dyskinesia & parkinsonian tremors The patient reported that she continues to feel depressed but she was not tearful during today's interview . Rajani denied wishing and she asserts that she "would never commit suicide. " She denied having violent thoughts or thoughts of homicide. She seems to have reasonable attention and concentration and ability for information processing today. Assessment: Rajani is a 63-year-old White female who was admitted to the inpatient psychiatric unit on 01/22/2018 in a state best described as acute psychosis. She continues to have auditory hallucinations and delusions. Compared to when she arrived to the inpatient psychiatric unit, she seems to have made significant strides, for example the first 2 days she was on the notes in on the unit, she was incoherent. Now, she is more coherent and the symptoms are limited to the hallucinations and delusions. Her affect also seems to have brightened and she seems to be taking care of her personal hygiene. Diagnoses: 1) Schizoaffective Disorder, Bipolar type 2) Tardive Dyskinesia 3) Parkinsonian Tremors (most likely Parkinson's Disease) Treatment Plan: Increase Artane to 4 mg twice daily Increase Sertraline (Zoloft) to 50 mg daily Continue Gabapentin 200 mg three times daily Continue Zyprexa 15 mg at bedtime Continue Lorazepam 1 mg at bedtime
--- NOTE | 2018-02-06 10:52 | SOCIAL WORKER PROG NOTE PSYCH ---
Social Work Progress Note Progress Note Attempted to call [facility] long wait on hold 40min - unable to hold longer due to schedule. Need to try again early in AM. Tried to complete [facility] concurrent but patient's HUsky C lapsed 02/04/18. UNable to do this on [facility]. Phoned Bethany at [facility] and left a voicmail as to how to proceed with concurrents. ASked her to call Janet No LCSW back as soon as possible.
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
[2018-02-06 12:11] VITALS: BP 115/64
[2018-02-06 15:49] VITALS: BP 129/63
[2018-02-06 19:34] VITALS: BP 127/67
[2018-02-07 07:47] VITALS: BP 139/90
--- NOTE | 2018-02-07 11:18 | SOCIAL WORKER PROG NOTE PSYCH ---
Social Work Progress Note Progress Note Left a voicemail with Lucila [phone], in regards to housing.
--- NOTE | 2018-02-07 11:18 | SOCIAL WORKER PROG NOTE PSYCH ---
Social Work Progress Note Progress Note ELIZABETH FarleyMaryanne ANGELO [id number] 1955 ELIZABTEH FarleyMaryanne ANGELO [id number] Pended Authorization # Client Authorization # Type of Request [id number] CONCURRENT Date of Admission/ Start of Services Requested From Submission Date 01/22/2018 02/07/2018 02/07/2018
[2018-02-07 12:18] VITALS: BP 130/61
--- NOTE | 2018-02-07 12:55 | SOCIAL WORKER PROG NOTE PSYCH ---
Social Work Progress Note Progress Note Rajani was coloring in the kitchen and attending groups today. Asked how he mood was today? She said good. I told her that I heard that her daughter visited last night. Asked how it went? She said it went good, but didn't elaborate on details. She said that Luci was going to bring her grandchildren to see her tomorrow. She said she couldn't wait to see them. I told her Analy Kirkland LCSW would be helping her with some calls today.
--- NOTE | 2018-02-07 14:10 | CP SOUTH PROGRESS NOTE PSYCH ---
Psych (Inpt) Progress Note Progress Note Vital Signs: Date Time Temp Pulse B/P 02/07 1218 92 130/61 02/07 0747 96.9 90 139/90 02/06 1934 98.1 99 127/67 The patient's progress, treatment, and aftercare plans were reviewed and updated in the treatment team meeting which included: RN; JOSEF, Group Therapy + Activity therapy staff, and psychiatrist. Mental Status: Rajani continues to voice delusional thoughts and experience audio hallucinations alert and oriented to time, place, and person. feelings of worthlessness, thinking that she deserves to be punished, or that she is a disgusting However, brighter in her affect. And she is this frequently bringing up the issue off, The patient was less disorganized, she continues to feel worthless and "disgusting". She continues to show tardive dyskinesia & parkinsonian tremors continues to feel depressed but she was not tearful during today's interview . Rajani denied wishing and she asserts that she "would never commit suicide. " She denied having violent thoughts or thoughts of homicide. She seems to have reasonable attention/concentration and ability for information processing today. Assessment: Rajani is a 63-year-old White female who was admitted to the inpatient psychiatric unit on 01/22/2018 in a state best described as acute psychosis. She continues to have auditory hallucinations and delusions. Compared to when she arrived to the inpatient psychiatric unit, she seems more coherent and the symptoms are limited to the hallucinations and delusions. Diagnoses: 1) Schizoaffective Disorder, Bipolar type 2) Tardive Dyskinesia 3) Parkinsonian Tremors (most likely Parkinson's Disease) Treatment Plan: Reduce Gabapentin to 100 mg three times daily Increase Zyprexa to 20 mg at bedtime Continue Artane 4 mg twice daily Continue Sertraline (Zoloft) 50 mg daily Continue Lorazepam 1 mg at bedtime Continue Zyprexa 15 mg at bedtime Continue Lorazepam 1 mg at bedtime
[2018-02-07 15:56] VITALS: BP 137/75
[2018-02-07 19:29] VITALS: BP 115/70
[2018-02-08 07:24] VITALS: BP 131/76
--- NOTE | 2018-02-08 08:26 | CP SOUTH PROGRESS NOTE PSYCH ---
Psych (Inpt) Progress Note Progress Note The patient's progress, treatment, and aftercare plans were reviewed and updated in the treatment team meeting which included: RN; JOSEF, Group Therapy/Activity therapy staff, and psychiatrist. Vital Signs: Vital Signs Date Time Temp Pulse B/P 02/08 0724 97.5 88 131/76 05 1929 98.6 102 115/70 05 1556 94 137/75 05/ 1218 92 130/61 Mental Status: alert and oriented to time, place, and person. Rajani continues to have delusional thoughts (she believes Adams will come visit tomorrow and cut her toes and hands and poke her eyes out) experience audio hallucinations (Adams's voice, siblings' voices, etc) she continues to voice feelings of worthlessness, However, brighter in her affect, less disorganized, less pronounced tardive dyskinesia & less pronounced parkinsonian tremors Rajani denied wishing and she asserts that she "would never commit suicide. " She denied having violent thoughts or thoughts of homicide. She seems to have reasonable attention/concentration and ability for information processing. Assessment: Rajani is a 63-year-old White female who was admitted on 01/22/2018 in a state best described as acute psychosis. Although she continues to have auditory hallucinations and delusions, she is slowly and gradually improving Diagnoses: 1) Schizoaffective Disorder, Bipolar type 2) Tardive Dyskinesia 3) Parkinsonian Tremors (most likely Parkinson's Disease) Treatment Plan: Continue Gabapentin 100 mg three times daily Continue Zyprexa 20 mg at bedtime Continue Artane 4 mg twice daily Continue Sertraline (Zoloft) 50 mg daily Continue Lorazepam 1 mg at bedtime
[2018-02-08 12:06] VITALS: BP 137/76
[2018-02-08 15:52] VITALS: BP 138/68
--- NOTE | 2018-02-08 16:25 | SOCIAL WORKER PROG NOTE PSYCH ---
Social Work Progress Note Progress Note Called Lucila attempting again to reach out about housing options for Rajani. Left a detailed message. Rajani was an active participant in groups today. I mentioned to Rajani that I would be seeing her this afternoon. She said she really didn't have anything to talk about right now and she'd prefer not to meet. I asked if her daughter and grandchildren were coming tonight? She said yes and she couldn't wait to see them. She seemed excited. Spent time coloring in the kitchen.
[2018-02-08 19:38] VITALS: BP 137/73
[2018-02-09 07:41] VITALS: BP 157/77
[2018-02-09 12:10] VITALS: BP 135/67
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
[2018-02-09 15:49] VITALS: BP 145/98
[2018-02-09 19:50] VITALS: BP 149/76
[2018-02-10 07:39] VITALS: BP 158/80
[2018-02-10 12:28] VITALS: BP 126/73
--- NOTE | 2018-02-10 15:12 | CP SOUTH PROGRESS NOTE PSYCH ---
Psych (Inpt) Progress Note Progress Note Include the following elements, when applicable: Involvement in the active treatment of the patient with behavioral observations of the patient and the patient's response to the treatment. Review of the ongoing treatment process in the context of the treatment plan. Indication of how multi-disciplinary staff members are carrying out the treatment plan. Plans for future interventions and recommendations for revision of the treatment plan. Liaison with other physicians/providers. Progress Note: Case and treatment plan discussed with nurse. Nurse reports there has been no change. Intermittently makes bizarre comments. Not appearing depressed. Denying suicidal ideation. Has fine tremor at hands and mouth. Patient seen at 9:53 AM. She was watching TV labs but got up and met with me in office. States "I'm very well. This is the best time ever." Asking when she will be discharged. Affect is calm and euthymic. Mood is good. Rates sad mood 10/10, only about the past. Rates anxiety 1/10. Denies feeling hopeless, helpless or worthless. Feels guilty a little bit. Denies active and passive suicidal ideation. Denies homicidal ideation. Reports intermittent auditory hallucinations and just now she heard her daughter's voice say "sit up straight. " Reports she had minimal voices for the first 16 days this admission but they came back on the 17th day, her sister's voice about sexual topics. Denies having visual hallucinations lately. Denies paranoid ideation. Reports she slept well. States she finally has an appetite. Reports everything is going so well and she is socializing. States she is getting her energy back slowly. Tolerating medications except does not like metformin because it is chaulky and "because I did not meet four men." IMPRESSION: Slow progress. Continue present treatment plan.
[2018-02-10 16:01] VITALS: BP 131/73
[2018-02-10 19:49] VITALS: BP 142/78
[2018-02-11 07:38] VITALS: BP 140/69
[2018-02-11 12:17] VITALS: BP 141/64
--- NOTE | 2018-02-11 14:19 | CP SOUTH PROGRESS NOTE PSYCH ---
Psych (Inpt) Progress Note Progress Note Include the following elements, when applicable: Involvement in the active treatment of the patient with behavioral observations of the patient and the patient's response to the treatment. Review of the ongoing treatment process in the context of the treatment plan. Indication of how multi-disciplinary staff members are carrying out the treatment plan. Plans for future interventions and recommendations for revision of the treatment plan. Liaison with other physicians/providers. Progress Note: I discussed this patient's progress to date, current mental status, treatment process in the context of the treatment plan, and discharge planning with staff/ team in the daily morning inpatient team meeting. I also met with the patient myself in individual session. A total of 15 minutes was spent with the patient with more than 50% spent in counseling and/or coordination of care. SUBJECTIVE: "I am Demond. I am here to teach people. My sent me here because he wants me to be better sexually." OBJECTIVE: Current Medications Sig/Rolando Start time Last Medication Dose Route Stop Time Status Admin Acetaminophen 650 MG Q6P PRN 01/22 2200 AC PO Al Hydroxide/Mg 30 ML Q4-6 PRN PRN 01/22 220 AC Hydroxide PO Aspirin 81 MG DAILY 01/23 09 AC 02/11 PO 0815 Atorvastatin Calcium 40 MG 01/23 1700 AC 02/10 PO 1611 Benzocaine/Menthol 1 MARIA GUADALUPE Q4 HRS NEEDED PRN 01/31 1200 AC 02/04 PO 1014 Gabapentin 100 MG TID 02/07 1400 AC 02/11 PO 0815 Levothyroxine Sodium 0.137 MG DAILY AC 01/23 0700 AC 02/11 PO 0659 Lorazepam 1 MG 02/07 AC 02/10 PO 2037 Lorazepam 0.5 MG Q4P PRN 02/04 1100 DC 02/08 PO 02/11 1059 1726 Magnesium Hydroxide 30 ML AT BEDTIME PRN 01/22 2200 AC 01/29 PO 1940 Metformin HCl 1,000 MG 0800,17001/23 0800 AC 02/11 PO 0815 Olanzapine 30 MG 02/11 AC PO Olanzapine 20 MG 02/07 DC 02/10 PO 2037 Sertraline HCl 50 MG 0800 02/07 0800 AC 02/11 PO 0815 Trihexyphenidyl HCl 4 MG DAILY 02/07 0900 AC 02/11 PO 0815 Vital Signs Date Time Temp Pulse Resp B/P B/P Pulse O2 O2 Flow FiO2 Mean Ox Delivery Rate 02/11 1217 96 141/64 02/11 0738 97.4 98 140/69 02/10 1949 97.3 91 142/78 02/10 1601 84 131/73 ASSESSMENT: Patient presents today calm, cooperative and pleasant. Laughing at times. Patient was found today in her bed at approximately 2:00 PM, easily arousable. Ambulated with steady gait to my office. Patient continues to have delusional thoughts, and to speak about sexual matters. Answers questions in a tangential manner. Reports depression and anxiety "come and go." She reports sleeping well at night. Reports that her appetite is improving. States that her concentration is good. Her insight is very poor. Denies suicidal ideation, homicidal ideation, visual hallucinations, paranoid ideation. Speech is well articulated, goal-directed, average in rate, volume and tone. The patient understands the risks/benefits/side effects of the medication and is agreeable to continue taking them. PLAN: 1. Increase Zyprexa to 30 mg p.o. nightly for continuing auditory hallucinations and delusional thoughts. Continue with other current management. Continue to provide support and encouragement.
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
[2018-02-11 15:39] VITALS: BP 140/71
--- NOTE | 2018-02-11 16:47 | SOCIAL WORKER PROG NOTE PSYCH ---
Social Work Progress Note Progress Note The services requested require additional review. You will be contacted regarding the status of this request if further information is needed. An authorization decision will be made within the required timeframes and details of that decision may be found under the member's authorization history. Member Name Member ID Member Subscriber Name Subscriber ID ELIZABETH ALBERTSY [id number] 1955 ELIZABETH ANGELO [id number] Pended Authorization # Client Authorization # Type of Request [id number] CONCURRENT Date of Admission/ Start of Services Requested From Submission Date 01/22/2018 02/11/2018 02/11/2018 Level of Service Type of Service Level of Care Type of Care INPATIENT/[facility]OC [facility] Reason Code P77 Provider Name & Address Provider ID Provider Alternate ID NPI # for Authorization GELY WATTERS [id number] [address] [place] [id number]
[2018-02-11 20:07] VITALS: BP 121/69
[2018-02-12 07:39] VITALS: BP 141/76
--- NOTE | 2018-02-12 09:10 | SOCIAL WORKER PROG NOTE PSYCH ---
Social Work Progress Note Progress Note Valentín Coreas APRN and I met with Rajani together this morning. Rajani reported having a vivid nightmare/ dream about Fernandez. I asked if they have spoken? She said she has called him 4 times. I asked her what they have been talking about? She didn't say other than as long as she is not with other men he accepts her back. It seems like she is looking to be with him again, now that she is feeling less depressed. She is only feeling depressed when she experiences negative voices that say bad things. Talked about how she feels confused and split down the middle between the good Rajani and bad Rajani. Ultimately she talked about how she would like to return to [facility]. I told her that she needed more time in the hospital to get stable, but if that is her choice in the long run maybe we should have Fernandez in for a meeting. Continuing to hear voices. This was evident as we talked as she would pause and say things like "I hear Fernandez and Jody are now."
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
[2018-02-12 12:25] VITALS: BP 122/57
[2018-02-12 15:46] VITALS: BP 143/70
[2018-02-12 20:06] VITALS: BP 143/73
[2018-02-13 07:41] VITALS: BP 138/68
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
[2018-02-13 12:14] VITALS: BP 125/71
--- NOTE | 2018-02-13 14:19 | SOCIAL WORKER PROG NOTE PSYCH ---
Social Work Progress Note Progress Note Talked to Rajani who was laying in bed in her room. She said she was tired and just wanted to rest. Was up this morning. She says she has been sleeping at night. Continuing to experience auditory hallucinations of Fernandez talking to her and Alia's (nursing home assistant) voice telling her Fernandez and Jody are . She keeps saying that Fernandez is going to pick her up and she's packed and ready to go. She reports that Fernandez came to her in her room last night and made love to her. I told her that as much as she may want to go with Fernandez, we may need another discharge option. Talked about [facility] in [facility] being a possible option. She agreed to sign the release. She talked about wishing she won the lottery and what she would do with the money. She talks about giving it to the homeless people in need and to children with disabilities. I told her she has a good heart. Overall mood was positive.
[2018-02-13 16:08] VITALS: BP 141/74
[2018-02-13 19:06] VITALS: BP 133/63
[2018-02-14 07:36] VITALS: BP 127/76
[2018-02-14 12:15] VITALS: BP 136/78
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
--- NOTE | 2018-02-14 15:04 | SOCIAL WORKER PROG NOTE PSYCH ---
Social Work Progress Note Progress Note ELIZABETH FarleyMaryanne ANGELO [id number] 1955 ELIZABETH FarleyMaryanne ANGELO [id number] Pended Authorization # Client Authorization # Type of Request [id number] CONCURRENT Date of Admission/ Start of Services Requested From Submission Date 01/22/2018 02/14/2018 02/14/2018
[2018-02-14 15:52] VITALS: BP 138/65
[2018-02-14 19:48] VITALS: BP 151/67
[2018-02-15 07:38] VITALS: BP 122/89
--- NOTE | 2018-02-15 08:11 | CP SOUTH PROGRESS NOTE PSYCH ---
Psych (Inpt) Progress Note Progress Note The treatment team discussed patient's progress, current treatment plan, and aftercare plans. The team included: nursing staff, MOTION PICTURE SET UP WORKER, Therapists, and psychiatrist. Vital Signs Date Time Temp Pulse B/P B/P Pulse O2 FiO2 02/15 0738 97.6 91 122/89 02/14 1948 97.6 97 151/67 05 1552 92 138/65 02/14 1215 94 136/78 Mental Status: She claims to have slept only 3 hours last night. The unit's sleep log indicated that she "slept well" Patient continues to have delusional thoughts about what Fernandez is going to do to her. She denied suicidal ideation, homicidal ideation, seemed more talkative but not pressured, mostly perseverative/obsessive, she also described some compulsive behaviors (such as counting when doing simple things like putting eye shadow, applying deodorant, etc.). Rajani continues to voice delusions and continues to describe what seems audio hallucinations. She continues to show tardive dyskinesia & parkinsonian tremors. She reported that she continues to feel depressed but she was not tearful during today's interview. Rajani denied wishing and she asserts that she "would never commit suicide." She denied having violent thoughts or thoughts of homicide. Assessment: Rajani is a 63-year-old White female who was admitted to the inpatient psychiatric unit on 01/22/2018 in a state best described as acute psychosis. she is more coherent but continues to have hallucinations and delusions. Her affect also seems to have brightened and she seems to be taking care of her personal hygiene. Some OCD spectrum symptoms and signs are present Diagnoses: 1) Schizoaffective Disorder, Bipolar type 2) Tardive Dyskinesia 3) Parkinsonian Tremors (most likely Parkinson's Disease) Treatment Plan: Continue Artane 4 mg twice daily Continue Zyprexa 20 mg at bedtime Change Lorazepam to Klonopin 1 mg at bedtime
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
--- NOTE | 2018-02-15 10:59 | SOCIAL WORKER PROG NOTE PSYCH ---
Social Work Progress Note Progress Note Talked to Myriam Javier at [facility]. She informed me that Rajani doesn't have the right insurance for their program and she would need to apply for Medicaid shut off worker care and get approved before they could accept her.
[2018-02-15 12:15] VITALS: BP 139/73
[2018-02-15 15:39] VITALS: BP 135/70
[2018-02-15 20:04] VITALS: BP 138/55
[2018-02-16 07:36] VITALS: BP 132/72
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
[2018-02-16 12:11] VITALS: BP 139/70
[2018-02-16 15:50] VITALS: BP 135/78
[2018-02-16 20:11] VITALS: BP 130/77
[2018-02-17 07:33] VITALS: BP 130/93
--- NOTE | 2018-02-17 10:23 | CP SOUTH PROGRESS NOTE PSYCH ---
Psych (Inpt) Progress Note Progress Note Vital Signs Date Time Temp Pulse B/P Pulse O2 FiO2 02/17 1204 87 132/70 02/17 0733 96.5 98 130/93 02/16 2011 98.5 99 130/77 Mental Status: Rajani was less delusional, but continues to describe what seems audio hallucinations. She slept much better last night. She denied suicidal ideation, denied homicidal ideation, talkative but not pressured, less perseverative/obsessive, less tardive dyskinesia & parkinsonian tremors. denied feeling depressed she was not tearful , denied wishing and she asserts that she "would never commit suicide." She denied having violent thoughts or thoughts of homicide. Assessment: Rajani is a 63-year-old White female who was admitted to the inpatient psychiatric unit on 01/22/2018 in a state best described as acute psychosis. slow progress, continues to have hallucinations and delusions. Her affect also seems to have brightened , some OCD spectrum symptoms and signs are present Diagnoses: 1) Schizoaffective Disorder, Bipolar type 2) Tardive Dyskinesia 3) Parkinsonian Tremors (most likely Parkinson's Disease) Treatment Plan: Increase Artane back to 4 mg twice daily Continue Zyprexa 20 mg at bedtime Klonopin 1 mg at bedtime
[2018-02-17 12:04] VITALS: BP 132/70
[2018-02-17 15:37] VITALS: BP 135/55
[2018-02-17 19:39] VITALS: BP 141/78
[2018-02-18 07:28] VITALS: BP 136/80
--- NOTE | 2018-02-18 07:49 | CP SOUTH PROGRESS NOTE PSYCH ---
Psych (Inpt) Progress Note Progress Note Vital Signs Date Time Temp Pulse B/P B/P O2 O2 Flow FiO2 02/18 1214 89 139/61 02/18 0728 97.3 90 136/80 02/17 1939 97.6 88 141/78 02/17 1537 98 135/55 Mental Status: Rajani remains delusional (believes she is Demond, she is very wealthy, etc). continues to describe what seems audio hallucinations. She claims to continue to have multiple awakenings at night, denied suicidal ideation, denied homicidal ideation, talkative but not pressured, less perseverative/obsessive, Continues to show tardive dyskinesia & parkinsonian tremors. denied feeling depressed, she was not tearful , denied wishing and she asserts that she "would never commit suicide." She denied having violent thoughts or thoughts of homicide. Assessment: Rajani is a 63-year-old White female who was admitted to the inpatient psychiatric unit on 01/22/2018 in a state best described as acute psychosis. slow progress, continues to have hallucinations and delusions. Her affect also seems to have brightened , some OCD spectrum symptoms and signs are present Diagnoses: 1) Schizoaffective Disorder, Bipolar type 2) Tardive Dyskinesia 3) Parkinsonian Tremors (most likely Parkinson's Disease) Treatment Plan: Reduce Artane back to 2 mg twice daily Increase Zyprexa to 25 mg at bedtime Increase Klonopin to 1.5 mg at bedtime Current Medications Acetaminophen 650 MG Q6P PRN 01/22 2200 AC Aspirin 81 MG DAILY 01/23 0900 AC 02/18 PO 0745 Atorvastatin Calcium 40 MG 01/23 1700 AC 02/17 PO 1724 Benzocaine/Menthol 1 MARIA GUADALUPE Q4 HRS NEEDED PRN 01/31 1200 AC 02/17 Clonazepam 1.5 MG 02/18 UNVr PO 02/25 1959 Clonazepam 1 MG 02/15 DC 02/17 PO 02/22 1959 194 Levothyroxine Sodium 0.137 MG DAILY AC 01/23 0700 AC 02/18 PO 0617 Lorazepam 0.5 MG Q4P PRN 02/17 1030 AC 02/18 Magnesium Hydroxide 30 ML AT BEDTIME PRN 01/22 2200 AC 01/29 PO 194 Metformin HCl 500 MG 0800,1700 /11 0800 AC 02/18 PO 0745 Olanzapine 25 MG 02/18 AC PO Olanzapine 20 MG 02/14 DC 02/17 PO 1943 Trihexyphenidyl HCl 2 MG 0800,1500 02/18 1500 UNVr PO Trihexyphenidyl HCl 4 MG 0800,1500 02/17 1500 DC 02/18 PO 0745
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
[2018-02-18 12:14] VITALS: BP 139/61
[2018-02-18 16:01] VITALS: BP 133/69
--- NOTE | 2018-02-18 16:29 | SOCIAL WORKER PROG NOTE PSYCH ---
Social Work Progress Note Progress Note Spoke with Bethany/[facility] - informed her that we are unable to get into Rajani's [facility] to do the concurrent review. Bethany stated she has to put in a request to havbe file reopened. She will call Janet Murry tomorrow morning and inform when file is reopened - to complete concurrent. Use concurrent start date 02/18/18.
[2018-02-18 19:59] VITALS: BP 139/65
[2018-02-19 08:04] VITALS: BP 131/79
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
--- NOTE | 2018-02-19 11:02 | SOCIAL WORKER PROG NOTE PSYCH ---
Social Work Progress Note Progress Note ELIZABETH FarleyMaryanne ANGELO [id number] 1955 ELIZABETH FarleyMaryanne ANGELO [id number] Pended Authorization # Client Authorization # Type of Request [id number] CONCURRENT Date of Admission/ Start of Services Requested From Submission Date 01/22/2018 02/18/2018 02/19/2018
--- NOTE | 2018-02-19 11:29 | SOCIAL WORKER PROG NOTE PSYCH ---
Social Work Progress Note Progress Note Called Erma Gerard's Sister to see about having a meeting for tomorrow. Erma said she wasn't able to come in tomorrow. She seemed to pull back about conservatorship and started asking us what our plan was with her since she's in our care. I explained that we normally ask family to file for conservatorship when family is involved. She asked that I call Luci (daughter) to see if she was coming in. I told her I would call, but also offered her another day to come and meet if tomorrow didn't work. She said she is available on Sunday at 10:30am. I called Luci and left a message extending an invitation for her to come in to meet tomorrow or Sunday the latest.
[2018-02-19 12:09] VITALS: BP 140/85
--- NOTE | 2018-02-19 13:33 | CP SOUTH PROGRESS NOTE PSYCH ---
Psych (Inpt) Progress Note Progress Note Vital Signs Date Time Temp Pulse B/P 02/19 1209 89 140/85 02/19 0804 98.2 92 131/79 02/18 1959 98.6 96 139/65 Mental Status Examination: Rajani remains delusional with yarsani, grandiose, and sexual themes. Continues to have audio hallucinations. She denied suicidal ideation, denied homicidal ideation, Rajani remains talkative and pressured. Rajani continues to show tardive dyskinesia & parkinsonian tremors. She denied feeling depressed, she was not tearful , denied wishing and she asserts that she "would never commit suicide." She denied having violent thoughts or thoughts of homicide. Assessment: Rajani Fernandez is a 63-year-old White female who was admitted on 2017 in a state of acute psychosis. Rajani has shown some progress (slow progress), she ontinues to have hallucinations and delusions as well as some OCD spectrum symptoms and signs Diagnoses: 1) Schizoaffective Disorder, Bipolar type 2) Tardive Dyskinesia 3) Parkinsonian Tremors (most likely Parkinson's Disease) Treatment Plan: D/C Artane (it seems that every time Iincrease it, she gets more delusions) Zyprexa 25 mg at bedtime Klonopin 1.5 mg at bedtime Aspirin 81 MG DAILY 01/23 0900 AC 02/18 Atorvastatin Calcium 40 MG 17001/23 1700 AC 02/17 Benzocaine/Menthol 1 MARIA GUADALUPE Q4 HRS NEEDED PRN 01/31 1200 AC 02/17 Levothyroxine Sodium 0.137 MG DAILY AC 01/23 0700 AC 02/18 Metformin HCl 500 MG 0800,02/15 08 AC 02/18
[2018-02-19 16:13] VITALS: BP 131/81
[2018-02-19 19:37] VITALS: BP 126/71
[2018-02-20 08:13] VITALS: BP 128/56
--- NOTE | 2018-02-20 09:04 | CP SOUTH PROGRESS NOTE PSYCH ---
Psych (Inpt) Progress Note Progress Note The treatment team discussed the patient's progress, treatment plan, and aftercare plans. The treatment team included: [employer] SALES, nursing staff, therapy staff , and psychiatrist. Vital Signs Date Temp Pulse B/P 02/20 94 136/86 02/20 97.9 100 128/56 02/19 98.2 100 126/71 Mental Status Examination: Rajani was alert and oriented to time, place, and person. She was talkative with some pressure. There was no slurring of words and she did not seem to be oversedated or overmedicated. Rajani remains delusional with quaker, grandiose, and sexual themes. She continues to have audio hallucinations. She denied suicidal ideation and denied homicidal ideation. Rajani remains talkative and pressured. Rajani continues to show tardive dyskinesia & parkinsonian tremors. She denied feeling depressed, she was not tearful, denied wishing and she asserts that she "would never commit suicide." She denied having violent thoughts or thoughts of homicide. Assessment: Rajani Fernandez is a 63-year-old White Female who was admitted on 2017 in a state of acute psychosis. Rajani has shown imptovement in her coherence/thought process but she ontinues to have hallucinations and significant delusions as well as some OCD-spectrum symptoms and signs Diagnoses: 1) Schizoaffective Disorder, Bipolar type 2) Tardive Dyskinesia 3) Parkinsonian Tremors (most likely Parkinson's Disease) Treatment Plan Update: 1) Increase Zyprexa to 30 mg at bedtime (as she refused to consider Aline or Clozapine) 2) Increase Klonopin t0 2.5 mg at bedtime Aspirin 81 MG DAILY 01/23 0900 Atorvastatin Calcium 40 MG 1700 01/23 1700 Levothyroxine Sodium 0.137 MG DAILY AC 01/23 0700 Metformin HCl 500 MG 0800,1700 02/15 0800
--- NOTE | 2018-02-20 09:12 | SOCIAL WORKER PROG NOTE PSYCH ---
Social Work Progress Note Progress Note Rajani started talking this morning about Fernandez coming to the unit every night and making her "scream." I told her she needed to keep the sexual comments to herself. She stated "he's watching me." I told her that I was planning to have a meeting with her Sister Erma Sunday to discuss d/c planning. She said "there is only one option for me and that's to be with Fernandez." She then said if she weren't with him she would "shrival up and ." She said "I'm not going to [facility]." She continues to tell me her mood is "elevated." I tried to explore why she was resistant in taking [place]. She got a little irritated and stated "I am absolutely never going on [place] again." She reported that it made her tired and she fell. Continues to have auditory hallucinations. Denies that the voices are saying anything bad to her. She told me that when she leaves here she doesn't want to be on any medication other than an aspirin and a multi-vitamin. She said she hates medication. She felt the need to share with me that she was walking behind the nurses station last night and that she has "broke every rule in this place." She proceeded to laugh and get quite giddy about it. Approached Rajani later and asked if she would be interested in a referral to Care? Asked if she has had their services before? She said she had a long time ago for only a brief time. She seemed a bit paranoid about me asking her, asking if she would have to stay there? I told her that it was to help her connect to therapy, case management, and housing. She said "I already have a place to live. She continues to say she is living with Fernandez. I told her Care could help her with housing if she was in need. She looked ambivalent and said "I may be busy." I encouraged her to think about it. She said okay.
[2018-02-20 11:47] VITALS: BP 136/86
[2018-02-20 15:52] VITALS: BP 134/82
[2018-02-20 20:42] VITALS: BP 129/60
[2018-02-21 07:28] VITALS: BP 117/68
--- NOTE | 2018-02-21 11:21 | SOCIAL WORKER PROG NOTE PSYCH ---
Social Work Progress Note Progress Note Asked Rajani how she was doing today? She said "rapture." I asked what that meant? She said no more money problems and no more sadness. This is the way she was describing her experience. She was more hyper congregational today, talking about things from the Bible. She refused to sign a release for Care, stating she is going to be traveling with Fernandez and doesn't need tx because she has been "cured" by love. She is continuing to hear voices. Today reports hearing Fernandez 's voice. She also is having some delusional references from the TV about her and Fernandez traveling [place]. She was reminded of the meeting with her Sister Erma tomorrow morning. She stated she wouldn't be here. I asked where she would be? She said "Fernandez is coming to get her and she's leaving." She kept saying Dr. Lugo told her she could leave when she has a roof over her head. I told her that I didn't think she was ready to leave, due to her mood still being elevated and needing more stabilization. She disagrees. Likes feeling "happy."
--- NOTE | 2018-02-21 11:46 | CP SOUTH PROGRESS NOTE PSYCH ---
Psych (Inpt) Progress Note Progress Note The treatment team discussed the patient's progress, treatment plan, and aftercare plans. The treatment team included: RESEARCH FOOD TECHNOLOGIST, RNs, therapy staff, and psychiatrist. Vital Signs Vital Signs Date Time Temp Pulse B/P FiO2 02/20 2042 97.0 68 129/60 02/20 1552 92 134/82 02/20 1147 94 136/86 Mental Status Examination: Rajani was talkative with some pressure. Rajani remains delusional with congregational, grandiose, and sexual themes. She continues to have audio hallucinations. She denied suicidal ideation and denied homicidal ideation. She was alert and oriented to time, place, and person. She denied feeling depressed, she was not tearful, denied wishing and she asserts that she "would never commit suicide." She denied having violent thoughts or thoughts of homicide. Assessment: Rajani Fernandez is a 63-year-old White Female who was admitted on 2017 in a state of acute psychosis. Rajani has shown imptovement in her coherence/thought process but she ontinues to have hallucinations and significant delusions as well as some OCD-spectrum symptoms and signs Diagnoses: 1) Schizoaffective Disorder, Bipolar type 2) Tardive Dyskinesia 3) Parkinsonian Tremors (most likely Parkinson's Disease) Treatment Plan Update: (1) Start [place] 150 mg TID (2) Continue Klonopin 2.5 mg at bedtime (3) Zyprexa 30 mg at bedtime (as she refused to consider [place] or Clozapine) Aspirin 81 MG DAILY 01/23 0900 Atorvastatin Calcium 40 MG 1700 01/23 1700 Levothyroxine Sodium 0.137 MG DAILY AC 01/23 0700 Metformin HCl 500 MG 0800,1700 02/15 0800
[2018-02-21 12:21] VITALS: BP 124/90
[2018-02-21 15:33] VITALS: BP 132/75
[2018-02-21 20:28] VITALS: BP 135/68
[2018-02-22 07:37] VITALS: BP 125/94
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
[2018-02-22 12:25] VITALS: BP 133/58
--- NOTE | 2018-02-22 13:05 | CP SOUTH PROGRESS NOTE PSYCH ---
Psych (Inpt) Progress Note Progress Note The treatment team discussed the patient's progress, treatment plan, and aftercare plans. The treatment team included: AUTO ACCESSORIES INSTALLER, RNs, Group Therapy staff, and psychiatrist. Vital Signs: Date Time Temp Pulse B/P 02/22 1225 98 133/58 02/22 0737 97.2 99 125/94 02/22 2028 97.0 98 135/68 I was part of the family meeting that took place with Carol's sister (also present were Rajani, Janet No LCSW and Social Work finance accounting internship) Please see Janet No LCSW's notes regarding the family meeting. MSE Rajani was not as talkative today Rajani remains delusional with taoism, grandiose, and sexual themes. She continues to have audio hallucinations. She denied suicidal ideation and denied homicidal ideation. She was alert and oriented to time, place, and person. She denied feeling depressed, she was not tearful, denied wishing and she denied thoughts of suicide. She denied having violent thoughts or thoughts of homicide. Assessment: Rajani Fernandez is a 63-year-old White Female who was admitted on 2017 in a state of acute psychosis. Rajani has shown imptovement in her coherence/thought process but she ontinues to have hallucinations and significant delusions as well as some OCD-spectrum symptoms and signs Diagnoses: 1) Schizoaffective Disorder, Bipolar type 2) Tardive Dyskinesia 3) Parkinsonian Tremors (most likely Parkinson's Disease, as 4 of her family members have Parkinson's disease and she continues to exhibit the parkinsonian tremors even though that she has been on Haldol for about 4 months now) Treatment Plan Update: (1) Increase/change [place] to 300 mg twice daily (2) Reduce Klonopin to 2 mg at bedtime (3) Reduce PRN Ativan to just 0.5 mg as needed Zyprexa 30 mg at bedtime (as she refused to consider [place] or Clozapine) Aspirin 81 MG DAILY 01/23 0900 Atorvastatin Calcium 40 MG 1700 01/23 1700 Levothyroxine Sodium 0.137 MG DAILY AC 01/23 0700 Metformin HCl 500 MG 0800,1700 02/15 0800 DICTATED BY: Brittney WANG,Vince Note:
--- NOTE | 2018-02-22 14:43 | SOCIAL WORKER PROG NOTE PSYCH ---
Social Work Progress Note Progress Note Determination Status: PENDED The services requested require additional review. You will be contacted regarding the status of this request if further information is needed. An authorization decision will be made within the required timeframes and details of that decision may be found under the member's authorization history. Member Name Member ID Member Subscriber Name Subscriber ID ELIZABETH WALKERIDY [id number] 1955 ELIZABETH WALKERIDY [id number] Pended Authorization # Client Authorization # Type of Request [id number] CONCURRENT Date of Admission/ Start of Services Requested From Submission Date 01/22/2018 02/21/2018 02/22/2018 Level of Service Type of Service Level of Care Type of Care INPATIENT/HLOC Mental Health Inpatient Inpatient [facility] - Inpatient Hospital Reason Code P76 Provider Name & Address Provider ID Provider Alternate ID NPI # for Authorization HI JEAN-BAPTISTE [id number] [address] [place] [id number]
[2018-02-22 15:45] VITALS: BP 122/82
[2018-02-22 19:44] VITALS: BP 127/77
[2018-02-23 07:34] VITALS: BP 143/86
--- NOTE | 2018-02-23 11:51 | CP SOUTH PROGRESS NOTE PSYCH ---
Psych (Inpt) Progress Note Progress Note Include the following elements, when applicable: Involvement in the active treatment of the patient with behavioral observations of the patient and the patient's response to the treatment. Review of the ongoing treatment process in the context of the treatment plan. Indication of how multi-disciplinary staff members are carrying out the treatment plan. Plans for future interventions and recommendations for revision of the treatment plan. Liaison with other physicians/providers. Progress Note: Pt notes that feels lithium is helpful. No s/s of toxicity. Notes mood is OK overall. Denies any SI or HI. Still very tangiental. Current Medications Sig/Rolando Start time Last Medication Dose Route Stop Time Status Admin Acetaminophen 650 MG Q6P PRN 01/22 2200 AC 02/20 PO 2319 Al Hydroxide/Mg 30 ML Q4-6 PRN PRN 01/22 2200 AC Hydroxide PO Aspirin 81 MG DAILY 01/23 09 AC 02/23 PO 0857 Atorvastatin Calcium 40 MG 01/23 1700 AC 02/22 PO 1655 Benzocaine/Menthol 1 MARIA GUADALUPE Q4 HRS NEEDED PRN 01/31 1200 AC 02/18 PO 1455 Clonazepam 2 MG 02/22 AC 02/22 PO 03/01 1959 195 Levothyroxine Sodium 0.137 MG DAILY AC 01/23 07 AC 02/23 PO 0609 [place] Carbonate 300 MG 799,02/22 AC 02/23 PO 0857 [place] Carbonate 150 MG TID 02/21 1001 DC 02/22 PO 0749 Lorazepam 0.5 MG Q4P PRN 02/22 1100 AC PO 02/26 1029 Magnesium Hydroxide 30 ML AT BEDTIME PRN 01/22 2200 AC 01/29 PO 1940 Metformin HCl 500 MG 0800,1700 02/15 08 AC 02/23 PO 0857 Multivitamins 1 TAB 0802/22 0800 AC 02/23 PO 0857 Olanzapine 30 MG 02/20 AC 02/22 PO 195 Vital Signs Date Time Temp Pulse Resp B/P B/P Pulse O2 O2 Flow FiO2 Mean Ox Delivery Rate 02/23 0734 97.5 106 143/86 02/22 1944 97.9 100 127/77 02/22 1545 118 122/82 02/22 1225 98 133/58 MSE General appearance: good hygiene and grooming; Attitude: cooperative; Eye contact: appropriate; Movement: no psychomotor agitation or slowing; Speech: nl fluency, nl rate/rhythm, nl volume, nl prosody; Mood: "fine" Affect: very flat, appropriate, constricted, non-labile, congruent; Thought process: linear and goal-directed, slowed; Thought content: denied SI or HI, no paranoid ideation; Perception: denied hallucinations- auditory, visual, does not appear to be responding to internal stimuli; I/J: limited A/P: Pt with SAD now with improved mood slightly. - Li level for AM -Continue current medication regimen -Encourage integration into the milieu
[2018-02-23 12:16] VITALS: BP 125/90
[2018-02-23 15:56] VITALS: BP 134/66
[2018-02-23 20:10] VITALS: BP 138/71
[2018-02-24 07:45] VITALS: BP 124/76
--- NOTE | 2018-02-24 11:53 | CP SOUTH PROGRESS NOTE PSYCH ---
Psych (Inpt) Progress Note Progress Note Include the following elements, when applicable: Involvement in the active treatment of the patient with behavioral observations of the patient and the patient's response to the treatment. Review of the ongoing treatment process in the context of the treatment plan. Indication of how multi-disciplinary staff members are carrying out the treatment plan. Plans for future interventions and recommendations for revision of the treatment plan. Liaison with other physicians/providers. Progress Note: Pt notes that she slept well. Notes ongoing +AHs "telling me that my is coming." Hopeful that will visit today. Denies SI or HI. Current Medications Sig/Rolando Start time Last Medication Dose Route Stop Time Status Admin Acetaminophen 650 MG Q6P PRN 01/22 2200 AC 02/20 PO 2319 Al Hydroxide/Mg 30 ML Q4-6 PRN PRN 01/22 2200 AC Hydroxide PO Aspirin 81 MG DAILY 01/23 09 AC 02/24 PO 0757 Atorvastatin Calcium 40 MG 01/23 170 AC 02/23 PO 1617 Benzocaine/Menthol 1 MARIA GUADALUPE Q4 HRS NEEDED PRN 01/31 1200 AC 02/18 PO 1455 Clonazepam 2 MG 02/22 AC 02/23 PO 03/01 1959 195 Levothyroxine Sodium 0.137 MG DAILY AC 01/23 07 AC 02/24 PO 0624 [place] Carbonate 300 MG 0800,02/22 AC 02/24 PO 1119 Lorazepam 0.5 MG Q4P PRN 02/22 1100 AC 02/23 PO 02/26 1029 2322 Magnesium Hydroxide 30 ML AT BEDTIME PRN 01/22 2200 AC 01/29 PO 1940 Metformin HCl 500 MG 0800,17002/15 0800 AC 02/24 PO 0757 Multivitamins 1 TAB 0802/22 0800 AC 02/24 PO 0757 Olanzapine 30 MG 02/20 AC 02/23 PO 195 Laboratory Tests 02/24 0655 Toxicology [place] (0.6 - 1.2 mmol/L) 0.5 L Vital Signs Date Time Temp Pulse Resp B/P B/P Pulse O2 O2 Flow FiO2 Mean Ox Delivery Rate 02/24 0745 97.8 100 124/76 02/23 2010 97.9 116 138/71 02/23 1556 98 134/66 02/23 1216 99 125/90 MSE General appearance: good hygiene and grooming; Attitude: cooperative; Eye contact: appropriate; Movement: no psychomotor agitation or slowing; Speech: nl fluency, nl rate/rhythm, nl volume, nl prosody; Mood: "fine" Affect: very flat, appropriate, constricted, non-labile, congruent; Thought process: linear and goal-directed, slowed; Thought content: denied SI or HI, no paranoid ideation; Perception: +AHs of voice telling her that to visit, does not appear to be responding to internal stimuli; I/J: limited A/P: Pt with SAD now with improved mood slightly. - Li level 0.5 -Continue current medication regimen -Encourage integration into the milieu
[2018-02-24 12:25] VITALS: BP 116/75
[2018-02-24 15:46] VITALS: BP 125/78
[2018-02-24 19:52] VITALS: BP 133/83
[2018-02-25 07:34] VITALS: BP 129/62
--- NOTE | 2018-02-25 09:09 | CP SOUTH PROGRESS NOTE PSYCH ---
Psych (Inpt) Progress Note Progress Note I reviewed Dr. Rachele Shi MD's notes from and Sunday (02/23 and 2017). The treatment team discussed the patient's progress, treatment plan, and aftercare plans. The treatment team included: CAN CLOSING MACHINE TENDER, RNs, Group Therapy staff, and psychiatrist. PINA Gerard was alert and oriented to time, place, and person. She remains talkative with delusional with baptist, grandiose, and sexual themes. She continues to have audio hallucinations. She denied suicidal ideation and denied homicidal ideation. She denied feeling depressed, she was not tearful, denied wishing and she denied thoughts of suicide. She denied having violent thoughts or thoughts of homicide. Assessment: Rajani Fernandez is a 63-year-old White Female who was admitted on 2017 in a state of acute psychosis. Rajani has shown imptovement in her coherence/thought process but she ontinues to have hallucinations and significant delusions as well as some OCD-spectrum symptoms and signs Diagnoses: 1) Schizoaffective Disorder, Bipolar type 2) Tardive Dyskinesia 3) Parkinsonian Tremors (most likely Parkinson's Disease, as 4 of her family members have Parkinson's disease and she continues to exhibit the parkinsonian tremors even though that she has been on Haldol for about 4 months now) Treatment Plan Update: (1) Continue [place] 300 mg twice daily (2) Reduce Klonopin to 1.5 mg at bedtime (3) Reduce Zyprexa to 20 mg at bedtime 2) Tardive Dyskinesia 3) Parkinsonian Tremors (most likely Parkinson's Disease, as 4 of her family members have Parkinson's disease and she continues to exhibit the parkinsonian tremors even though that she has been on Haldol for about 4 months now) Treatment Plan Update: (1) Increase/change [place] to 300 mg twice daily (2) Reduce Klonopin to 2 mg at bedtime (3) Reduce PRN Ativan to just 0.5 mg as needed Zyprexa 30 mg at bedtime (as she refused to consider [place] or Clozapine)
--- NOTE | 2018-02-25 10:13 | SOCIAL WORKER PROG NOTE PSYCH ---
Social Work Progress Note Progress Note Rajani was upset this morning over losing some clothes. Particularly a shirt and a pair of pants. She reported meeting with the bhavana over the weekend and thought maybe she left them in the group room. Reports visits with her Sister Erma over the weekend and talking to Fernandez a couple of times. She told me today she was having trouble walking and that she thinks it's because she is connected to or "hooked up to" someone else that can't walk. She thinks this is happening due to a voice she is hearing. She also referenced feeling special as God has chosen her to help others. She reported that people have been lame and unable to walk and she has helped them. Tried to challenge her a bit on this, as she usually may be able to understand this is part of her illness. But today has limited insight into those symptoms. She understands that the hospital is going to file for conservatorship. She is okay with the family Mechanical Maintenance Instructor Charles Smith being appointed. I also let her know I would be following up with [facility] about her referral. Her mood was a little less elevated today than when I saw her last week, but still presenting with significant delusions of grandiosity. Printed Conservatorship paperwork to be filled out. Shared information to be done and completed by Dr. Lugo.
[2018-02-25 11:58] VITALS: BP 127/73
--- NOTE | 2018-02-25 12:06 | SOCIAL WORKER PROG NOTE PSYCH ---
Social Work Progress Note Progress Note Determination Status: PENDED The services requested require additional review. You will be contacted regarding the status of this request if further information is needed. An authorization decision will be made within the required timeframes and details of that decision may be found under the member's authorization history. Member Name Member ID Member Subscriber Name Subscriber ID ELIZABETH WALKERIDY [id number] ELIZABETH WALKERIDY [id number] Pended Authorization # Client Authorization # Type of Request [id number] CONCURRENT Date of Admission/ Start of Services Requested From Submission Date 01/22/2018 02/25/2018 02/25/2018 Level of Service Type of Service Level of Care Type of Care INPATIENT/HLOC MENTAL HEALTH [facility]PATIENT [facility] Reason Code P76 Provider Name & Address Provider ID Provider Alternate ID NPI # for Authorization KATIE CHAN [address] [place] [id number] N/A
[2018-02-25 15:35] VITALS: BP 111/75
[2018-02-25 19:45] VITALS: BP 118/76
[2018-02-26 07:50] VITALS: BP 111/62
--- NOTE | 2018-02-26 08:43 | CP SOUTH PROGRESS NOTE PSYCH ---
See Addendum Psych (Inpt) Progress Note Progress Note The treatment team discussed the patient's progress, treatment plan, and aftercare plans. The treatment team included: PURCHASING EXPEDITOR, RNs, Group Therapy staff, and psychiatrist. Mental status examination: Rajani was less talkative today. She denied feeling unsteady or groggy. She was alert and oriented to time, place, and person. She remains delusional but she was less pre-occupied with delusions today. She continues to have audio hallucinations. She denied suicidal ideation and denied homicidal ideation. She denied feeling depressed, she was not tearful, denied wishing and she denied thoughts of suicide. She denied having violent thoughts or thoughts of homicide. Assessment: Rajani Fernandez is a 63-year-old White Female who was admitted on 2017 in a state of acute psychosis. Rajani ontinues to have hallucinations and delusions but has been free of thoughts of suicide and free of thoughts of violence Diagnoses: 1) Schizoaffective Disorder, Bipolar type 2) Tardive Dyskinesia 3) Parkinsonian Tremors (most likely Parkinson's Disease, as 4 of her family members have Parkinson's disease and she continues to exhibit the parkinsonian tremors even though that she has been on Haldol for about 4 months now) Treatment Plan Update: Same medications (1) Continue [place] 300 mg twice daily (2) Klonopin 1.5 mg at bedtime (3) Zyprexa 20 mg at bedtime
[2018-02-26 11:58] VITALS: BP 135/68
[2018-02-26 15:53] VITALS: BP 120/74
[2018-02-26 19:53] VITALS: BP 120/76
[2018-02-27 08:00] VITALS: BP 116/55
--- NOTE | 2018-02-27 11:11 | SOCIAL WORKER PROG NOTE PSYCH ---
Social Work Progress Note Progress Note Met with Rajani today. She was in bed sleeping at 11:30am. She stated that Fernandez was on [place] and visited her and just left. I told her that he was not here on [place]. She stated "Well in my mind he was." She stated she is "tired." Encouraged her to get up and stay out of bed - go to groups. She did so - got up. She stated the "lithium is making me drool." Discussed how she may have been drooling when asleep. She stated she is going to love with Fernandez. Later in discussion she stated her brother, Colton Blank will have her live with him as long as she "goes away for a year." Rajani signed an JOSE MANUEL for her brother. She stated her sister, Erma has his phone number. Rajani approached Janet No LCSW and asked "where am I going after I leave here - do I have a place to stay." Rajani was informed not now, we are working on this - and need to activate her insurance - ask for assitance from her conservator - once appointed. Rajani stated she didn't think she had any problems prior to admission, she stated 'the problem is here, that I am here." She stated "I wish Fernandez killed me."
--- NOTE | 2018-02-27 11:15 | CP SOUTH PROGRESS NOTE PSYCH ---
Psych (Inpt) Progress Note Progress Note The treatment team discussed Pt's progress, treatment plan, and aftercare plans. The treatment team included: LCSWs, RNs, Group Therapy staff, and psychiatrist. Mental status examination: Rajani was less talkative and less delusional today. She does not like lithium and came up with several complaints about it (reported it is causing her a lot of drooling). She was alert and oriented to time, place, and person. She does not talk as much about audio hallucinations. She denied suicidal ideation and denied homicidal ideation. She denied feeling depressed, she was not tearful, denied wishing and she denied thoughts of suicide. She denied having violent thoughts or thoughts of homicide. Assessment: Rajani Fernandez is a 63-year-old White Female who was admitted on 2017 in a state of acute psychosis. Rajani ontinues to have hallucinations and delusions but has been free of thoughts of suicide and free of thoughts of violence Diagnoses (Last updated 02/27/2018): 1) Schizoaffective Disorder, Bipolar type 2) Tardive Dyskinesia 3) Parkinson's Disease Treatment Plan Update: (1) Reduce [place] back to 300 mg twice daily (2) Reduce Klonopin to 1 mg at bedtime (3) Continue Zyprexa 20 mg at bedtime (2) Klonopin 1.5 mg at bedtime (3) Zyprexa 20 mg at bedtime
--- NOTE | 2018-02-27 11:59 | SOCIAL WORKER PROG NOTE PSYCH ---
Social Work Progress Note Progress Note TC - Erma (Rajani's Sister) - asked for her brother Colton Blank's phone number. Colton Blank work number is . Erma said it's Ok to have him paged, apparently he owns his own business. Erma stated she thinks the trial attorney's name is Charles Smith - ángela isn't sure and asked for us to contact Colton to confirm.
[2018-02-27 12:18] VITALS: BP 124/73
[2018-02-27 16:07] VITALS: BP 128/68
[2018-02-27 20:07] VITALS: BP 136/61
[2018-02-28 07:39] VITALS: BP 135/65
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
[2018-02-28 12:02] VITALS: BP 135/68
--- NOTE | 2018-02-28 12:41 | SOCIAL WORKER PROG NOTE PSYCH ---
Social Work Progress Note Progress Note Determination Status: PENDED The services requested require additional review. You will be contacted regarding the status of this request if further information is needed. An authorization decision will be made within the required timeframes and details of that decision may be found under the member's authorization history. Member Name Member ID Member Subscriber Name Subscriber ID ELIZABETH WALKERIDY [id number] ELIZABETH WALKERIDY [id number] Pended Authorization # Client Authorization # Type of Request [id number] CONCURRENT Date of Admission/ Start of Services Requested From Submission Date 01/22/2018 02/28/2018 02/28/2018 Level of Service Type of Service Level of Care Type of Care INPATIENT/[facility]PATIENT [facility]OSPITAL Reason Code P76 Provider Name & Address Provider ID Provider Alternate ID NPI # for Authorization KATIE CHAN [address] [place] [id number] N/A Message
--- NOTE | 2018-02-28 14:37 | CP SOUTH PROGRESS NOTE PSYCH ---
Psych (Inpt) Progress Note Progress Note treatment team discussed Pt's progress, treatment plan, and aftercare plans. The treatment team included: LCSWs, RNs, Group Therapy staff, and psychiatrist. Mental status examination: Rajani was not talkative today and was less delusional. She was alert and oriented to time, place, and person. She does not talk as much about audio hallucinations. She denied suicidal ideation and denied homicidal ideation. She denied feeling depressed, she was not tearful, denied wishing and she denied thoughts of suicide. She denied having violent thoughts or thoughts of homicide. Assessment: Rajani Fernandez is a 63-year-old White Female who was admitted on 2017 in a state of acute psychosis. Rajani ontinues to have hallucinations and delusions but has been free of thoughts of suicide and free of thoughts of violence Diagnoses (Last updated 02/27/2018): 1) Schizoaffective Disorder, Bipolar type 2) Tardive Dyskinesia 3) Parkinson's Disease Treatment Plan Update [place] 300 mg twice daily Klonopin 1 mg at bedtime (3) Continue Zyprexa 20 mg at bedtime
[2018-02-28 15:55] VITALS: BP 140/74
[2018-02-28 20:20] VITALS: BP 138/69
[2018-03-01 07:35] VITALS: BP 135/63
--- NOTE | 2018-03-01 08:23 | CP SOUTH PROGRESS NOTE PSYCH ---
Psych (Inpt) Progress Note Progress Note Treatment team discussed Pt's progress, treatment plan, and aftercare plans. The treatment team included: LCSWs, RNs, Group Therapy staff, and psychiatrist. Vital Signs Date Temp Pulse B/P 03/01 96.7 95 135/63 02/28 98.4 92 138/69 Mental Status Examination: Rajani was less talkative today, she was not pressured. She was less delusional. She was alert and oriented to time, place, and person. Her audio hallucinations seem to have declined. She denied suicidal ideation and denied violent thoughts/ homicidal ideation. She denied feeling depressed, she was not tearful. She showed good attention, concentration and information processing today. There was no evidence of short-term memory impairment. Assessment: Rajani Fernandez is a 63-year-old White Female who was admitted on 2017 in a state of acute psychosis. Rajani ontinues to have hallucinations and delusions but has been free of thoughts of suicide and free of thoughts of violence Diagnoses (Last updated 02/27/2018): 1) Schizoaffective Disorder, Bipolar type 2) Tardive Dyskinesia 3) Parkinson's Disease Treatment Plan Update: Continue Eliza 300 mg twice daily Continue Klonopin 1 mg at bedtime Continue Zyprexa 20 mg at bedtime
--- NOTE | 2018-03-01 11:43 | SOCIAL WORKER PROG NOTE PSYCH ---
Social Work Progress Note Progress Note Rajani was in group this morning and then went to lay down. She got up when prompted to talk. She sat with this resume writer and Herb Elias (COMMISSIONING MANAGER student). She reported not sleeping that well due to restless/ achy legs last night. She continues to hear voices. The voice is typically Fernandez's voice. She talks about the "3 lines" she has that channel his voice. One line tells her how much he loves her, another line is typically a negative line that causes her hands to shake, and the last one she typically hears that Fernandez and Jody are together/ . Shae went on to talk about how much Fernandez loves her and she loves him. She only wants to live with him. She got angry with her Sister Erma this morning, because Erma is telling her she doesn't want her with Fernandez. This is causing a conflict between her and Erma. She is bad mouthing her Sister. I tried to explain she is only trying to watch out for her. [facility] staff would like to meet with her on the unit to engage. Rajani is open to meeting with them. Called Korina at [facility] to arrange a meeting. Left a message. I was informed earlier by Korina that there are no openings at their respite program and no openings in their supervised housing program.
[2018-03-01 12:45] VITALS: BP 132/58
[2018-03-01 16:08] VITALS: BP 137/68
[2018-03-01 20:05] VITALS: BP 135/63
[2018-03-02 07:46] VITALS: BP 126/58
[2018-03-02 12:02] VITALS: BP 110/55
--- NOTE | 2018-03-02 15:24 | CP SOUTH PROGRESS NOTE PSYCH ---
Psych (Inpt) Progress Note Progress Note Include the following elements, when applicable: Involvement in the active treatment of the patient with behavioral observations of the patient and the patient's response to the treatment. Review of the ongoing treatment process in the context of the treatment plan. Indication of how multi-disciplinary staff members are carrying out the treatment plan. Plans for future interventions and recommendations for revision of the treatment plan. Liaison with other physicians/providers. Progress Note: I hear Fernandez's voice saying that he can't love me more than he does now.The patient's discourse is disorganized. 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 She continues to be paranoid and suspicious. She is asking repeatedly "how do you think I am doing " The patient denies suicidal/homicidal ideation, auditory/visual hallucinations or side effects from medication. We will continue present medication regimen, observation, symptom monitoring. The patient will be followed up daily by the unit psychiatrist.
[2018-03-02 15:49] VITALS: BP 138/73
[2018-03-02 19:36] VITALS: BP 117/61
[2018-03-03 07:43] VITALS: BP 123/71
[2018-03-03 12:28] VITALS: BP 136/52
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
--- NOTE | 2018-03-03 13:05 | CP SOUTH PROGRESS NOTE PSYCH ---
Psych (Inpt) Progress Note Progress Note Include the following elements, when applicable: Involvement in the active treatment of the patient with behavioral observations of the patient and the patient's response to the treatment. Review of the ongoing treatment process in the context of the treatment plan. Indication of how multi-disciplinary staff members are carrying out the treatment plan. Plans for future interventions and recommendations for revision of the treatment plan. Liaison with other physicians/providers. Progress Note: Amitryptiline 50 mg at bedtime
[2018-03-03 15:49] VITALS: BP 128/67
[2018-03-03 15:55] VITALS: BP 111/50
[2018-03-03 19:43] VITALS: BP 132/67
[2018-03-04 07:47] VITALS: BP 134/71
--- NOTE | 2018-03-04 08:35 | CP SOUTH PROGRESS NOTE PSYCH ---
Psych (Inpt) Progress Note Progress Note Include the following elements, when applicable: Involvement in the active treatment of the patient with behavioral observations of the patient and the patient's response to the treatment. Review of the ongoing treatment process in the context of the treatment plan. Indication of how multi-disciplinary staff members are carrying out the treatment plan. Plans for future interventions and recommendations for revision of the treatment plan. Liaison with other physicians/providers. Progress Note: Subjective: Patient concerned about is her conservator patient concerned that conservator might prohibit her from seeing her ex-, Fernandez. Very fixated on Fernandez's whereabouts and multiple calls from Fernandez today. Also very upset that Fernandez "hates me." Patient denies SI/HI/AVH/SIB but continues to express paranoia. Patient states she does not like lithium and feels that it may be causing morning stiffness. Patient denies other complaints. Patient states her tremor appears to be at baseline. Patient eating well but continuing to have disrupted sleep at night. Patient feels that olanzapine has been helpful . Objective: Patient was adherent with medications and in behavioral control. 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 VSS. Current Medications Sig/Rolando Start time Last Medication Dose Route Stop Time Status Admin Acetaminophen 650 MG .STK-MED ONE 03/03 2214 DC PO 03/03 221 Acetaminophen 650 MG Q6P PRN 01/22 2200 AC 03/03 PO 2215 Al Hydroxide/Mg 30 ML Q4-6 PRN PRN 01/22 220 AC Hydroxide PO Aspirin 81 MG DAILY 01/23 0900 AC 03/03 PO 0830 Atorvastatin Calcium 40 MG 17001/23 1700 AC 03/03 PO 1700 Benzocaine/Menthol 1 MARIA GUADALUPE Q4 HRS NEEDED PRN 01/31 1200 AC 02/18 PO 1455 Clonazepam 1 MG 02/27 AC 03/03 PO 03/06 1959 2005 Levothyroxine Sodium 0.137 MG DAILY AC 01/23 0700 AC 03/04 PO 0543 [place] Carbonate 300 MG 0800,02/27 AC 03/03 PO 2005 Magnesium Hydroxide 30 ML AT BEDTIME PRN 01/22 2200 AC 01/29 PO 1940 Metformin HCl 500 MG 0800,0 02/15 0800 AC 03/03 PO 1700 Multivitamins 1 TAB 0800 02/22 08 AC 03/03 PO 0830 Olanzapine 20 MG 02/25 AC 03/03 PO 2006 Laboratory Tests 03/03/18 0600: Anion Gap 9, Estimated GFR > 60, BUN/Creatinine Ratio 17.8, TSH &T3 &Free T4 Intrp 0.999, [place] 1.0 03/03/18 0550: Urine Color YEL, Urine Clarity CLEAR, Urine pH 7.0, Ur Specific [place] 1.010, Urine Protein NEG, Urine Ketones NEG, Urine Nitrite NEG, Urine Bilirubin NEG, Urine Urobilinogen 0.2, Ur Leukocyte Esterase NEG, Ur Microscopic EXAM NOT REQUIRED, Urine Hemoglobin NEG, Urine Glucose NEG Vital Signs Date Time Temp Pulse Resp B/P B/P Pulse O2 O2 Flow FiO2 Mean Ox Delivery Rate 03/04 0747 98.0 100 134/71 03/03 1943 99.4 84 132/67 03/03 1555 82 111/50 03/03 1549 96 128/67 03/03 1228 100 136/52 MSE: General: Patient alert and oriented, unkempt, intense eye contact, no apparent distress. Speech: Moderate rate and volume, halting prosody. Motor: Significant bilateral UE tremor Mood: "Will let me tell you about Fernandez, we got in 1987." Affect: [place], euthymic, mood congruent, mildly constricted, non-labile, poorly related. Thought process: Tangential Thought content: No SI/HI/AVH/SIB, appears to be paranoid and somewhat delusional, ruminating on Fernandez. Cognition: Clear deficits in memory, attention, concentration. Insight: Poor Judgment: Poor-Fair, able to maintain behavioral control on unit A&P: 63-year-old white female with schizoaffective disorder with acute manic and psychotic decompensation, tardive dyskinesia and Parkinson's disease, presenting quite disorganized with SI and CAH, placed on PEC. [place] 1.0. Medically complicated with peripheral neuropathy, hypertension, hyperlipidemia and hypothyroidism. At this time, patient continues to be paranoid and somewhat delusional fixated on her ex- and concerned about a new conservator, however med adherence and in behavioral control. Unclear how close she is to her baseline at this point. - Maintain safety, every 15 minute checks -Continue medications as above -Continue plan
[2018-03-04 12:09] VITALS: BP 129/64
[2018-03-04 15:59] VITALS: BP 137/64
[2018-03-04 20:00] VITALS: BP 133/56
[2018-03-05 07:42] VITALS: BP 125/69
--- NOTE | 2018-03-05 10:11 | SOCIAL WORKER PROG NOTE PSYCH ---
Social Work Progress Note Progress Note Determination Status: PENDED The services requested require additional review. You will be contacted regarding the status of this request if further information is needed. An authorization decision will be made within the required timeframes and details of that decision may be found under the member's authorization history. Member Name Member ID Member Subscriber Name Subscriber ID ELIZABETH WALKERIDY [id number] ELIZABETH WALKERIDY [id number] Pended Authorization # Client Authorization # Type of Request [id number] CONCURRENT Date of Admission/ Start of Services Requested From Submission Date 01/22/2018 03/05/2018 03/05/2018
--- NOTE | 2018-03-05 11:47 | CP SOUTH PROGRESS NOTE PSYCH ---
Psych (Inpt) Progress Note Progress Note Treatment team discussed Pt's progress, treatment plan, and aftercare plans. The treatment team included: LCSWs, RNs, Group Therapy staff, and psychiatrist. Mental Status Examination: Rajani was less talkative today, not pressured, and no delusions voiced, She was alert and oriented to time, place, and person. Her audio hallucinations seem to have declined. She denied suicidal ideation and denied violent thoughts/ homicidal ideation. She denied feeling depressed, she was not tearful. She showed good attention, concentration and information processing today. There was no evidence of short-term memory impairment. Assessment: Rajani Fernandez is a 63-year-old White Female who was admitted on 2017 in a state of acute psychosis. Rajani ontinues to have hallucinations and delusions but has been free of thoughts of suicide and free of thoughts of violence. [facility] , [facility] , he said he has the room for 3 more weeks while he is looking for an apartment, and that he would not pio Rajani staying with him and they may look for an apartment together Diagnoses (Last updated 02/27/2018): 1) Schizoaffective Disorder, Bipolar type 2) Tardive Dyskinesia 3) Parkinson's Disease Treatment Plan Update: Continue [place] 300 mg twice daily Continue Klonopin 1 mg at bedtime Continue Zyprexa 20 mg at bedtime Treatment Plan Update: Continue [place] 300 mg twice daily Continue Klonopin 1 mg at bedtime Continue Zyprexa 20 mg at bedtime
[2018-03-05 12:16] VITALS: BP 131/57
[2018-03-05 16:09] VITALS: BP 130/61
--- NOTE | 2018-03-05 16:14 | SOCIAL WORKER PROG NOTE PSYCH ---
Social Work Progress Note Progress Note Called [place] [address] [facility] to see if the hearing has been scheduled for conservatorship. Giulia Marsh (support clerk) told me it has not been scheduled yet. Talked to Korina at [facility]. Anabella (office clinician) will be coming in to meet with Rajani on at 2pm. Called Luci Fernandez (daughter) and left a message asking about temporary placement with her and in regards to the conservatorship hearing. Rajani asked me if we could call Fernandez. I told her that we could. She reached him at the [facility] where he is currently staying. Fernandez said he was currently staying there until he could find an apartment. He said he would be looking for something in the area for around 800.00 a month. He is fine with Rajani staying with him as long as she wants that. He reports not being able to see Rajani at the hospital right now, due to not having a car and not wanting to pay taxi fare. Rajani is hoping to leave the hospital pineda to go be with Fernandez. I told her that I was not making promises and that I needed to discuss the plan with the team. I let Fernandez know that I was also trying to connect Rajani to [facility] for services. Rajani didn't seem to focus much on that part of her aftercare plan. I told her that [facility] staff is looking to meet with her on . She is hoping to go Sunday. She is very giddy about the idea of seeing Fernandez.
[2018-03-05 19:51] VITALS: BP 133/61
[2018-03-06 07:46] VITALS: BP 114/63
--- NOTE | 2018-03-06 08:25 | CP SOUTH PROGRESS NOTE PSYCH ---
Psych (Inpt) Progress Note Progress Note Treatment team discussed Pt's progress, treatment plan, and aftercare plans. The treatment team included: LCSWs, RNs, Group Therapy staff, and psychiatrist. Vital Signs Date Time Temp Pulse B/P B/P Pulse O2 O2 Flow FiO2 03/06 1205 99 134/63 03/06 0746 97.4 98 114/63 03/05 1951 98.8 96 133/61 03/05 1609 96 130/61 Mental Status Examination: Rajani was alert and oriented to time, place, and person. She was less talkative today, not pressured, and no delusions voiced. She reported that the voices are becoming "all good" (i.e. no more bad voices telling her she deserves to be punished or deserves to , etc.) She denied suicidal ideation and denied violent thoughts/homicidal ideation. She denied feeling depressed, she was not tearful. She showed good attention, concentration and information processing today. There was no evidence of short- term memory impairment. Assessment: Rajani Fernandez is a 63-year-old White Female who was admitted on 2017 in a state of acute psychosis. Significant improvement since admission Diagnoses (Last updated 02/27/2018): 1) Schizoaffective Disorder, Bipolar type 2) Tardive Dyskinesia 3) Parkinson's Disease Treatment Plan Update: Reduce Klonopin to 0.5 mg at bedtime Reduce [place] to 150 mg in AM and 300 mg at bedtime Continue Zyprexa 20 mg at bedtime Acetaminophen 650 MG Q6P PRN 01/22 2200 AC 03/03 Al Hydroxide/Mg 30 ML Q4-6 PRN PRN 01/22 2200 AC Aspirin 81 MG DAILY 01/23 900 AC 03/06 Atorvastatin Calcium 40 MG 01/23 AC 03/05 Benzocaine/Menthol 1 MARIA GUADALUPE Q4 HRS NEEDED PRN 01/31 1200 AC 02/18 Clonazepam 0.5 MG 03/06 AC Levothyroxine Sodium 0.137 MG DAILY AC 01/23 700 AC 03/06 Magnesium Hydroxide 30 ML AT BEDTIME PRN 01/22 2200 AC 01/29 Metformin HCl 500 MG 799,02/15 AC 03/06 Multivitamins 1 TAB 02/22 08 AC 03/06
--- NOTE | 2018-03-06 08:59 | SOCIAL WORKER PROG NOTE PSYCH ---
Social Work Progress Note Progress Note Rajani ate breakfast, slept well. She is excited to see Anabella from [facility] tomorrow. She remembers her from working with her here on [facility] years ago. She remains excited about the idea of seeing Fernandez soon. I told her I have not discussed her plan with the team and will need to do so today. She has some complaints about the [place] causing her to feel a little unsteady on her feet. I asked if she was going to remain on her medication? She said "I guess I have to." I told her that if tolerating some of the shakiness means helping her remain out of the hospital and helps her mood stabilize then it may be worth it. She seemed to be thinking about it. Her goal for the day is to "remain positive." She reports voices, but they are positive in nature. Discussed d/c for Sunday with the team to [place].
[2018-03-06 12:05] VITALS: BP 134/63
[2018-03-06 16:01] VITALS: BP 124/67
[2018-03-06 19:55] VITALS: BP 132/68
[2018-03-07 07:39] VITALS: BP 121/87
--- NOTE | 2018-03-07 07:54 | CP SOUTH PROGRESS NOTE PSYCH ---
Psych (Inpt) Progress Note Progress Note Treatment team discussed Pt's progress, treatment plan, and aftercare plans. The treatment team included: LCSWs, RNs, Group Therapy staff, and psychiatrist. Mental Status Examination: Rajani was alert and oriented to time, place, and person. She was not talkative today & was not pressured. There were no delusions during the 10 minutes I spent with Rajani. She was focused on getting rid of lithium and approached the subject from several directions including a slew of side effect now and in the past She reported that audio hallucination have been not as loud or frequent, and they are becoming "all good" (i.e. voices are no longer telling her she deserves to be punished or deserves to , etc.) She denied feeling depressed, she was not tearful. She denied wishing or suicidal ideation She denied violent thoughts/homicidal ideation. Assessment: Rajani Fernandez is a 63-year-old White Female who was admitted on 2017 in a state of acute psychosis. Significant improvement since admission. She probably will be discharged tomorrow Rajani has not intention of staying on [place] Diagnoses (Last updated 02/27/2018): 1) Schizoaffective Disorder, Bipolar type 2) Tardive Dyskinesia 3) Parkinson's Disease Treatment Plan Update: Reduce [place] to 150 mg tonight then stop Continue Zyprexa 20 mg at bedtime Clonazepam 0.5 MG at bedtime Aspirin 81 MG DAILY 01/23 900 AC 03/06 Atorvastatin Calcium 40 MG 01/23 AC 03/05 Benzocaine/Menthol 1 MARIA GUADALUPE Q4 HRS NEEDED PRN 01/31 1200 AC 02/18 Levothyroxine Sodium 0.137 MG DAILY AC 01/23 700 AC 03/06 Magnesium Hydroxide 30 ML AT BEDTIME PRN 01/22 2200 AC 01/29 Metformin HCl 500 MG 00,02/15 AC 03/06 Multivitamins 1 TAB 02/22 AC 03/06 Clonazepam 0.5 MG 03/06 AC Levothyroxine Sodium 0.137 MG DAILY AC 01/23 700 AC 03/06 Magnesium Hydroxide 30 ML AT BEDTIME PRN 01/22 2200 AC 01/29 Metformin HCl 500 MG 0800,02/15 AC 03/06 Multivitamins 1 TAB 02/22 08 AC 03/06 DICTATED BY: Brittney WANG,Vince
[2018-03-07 12:08] VITALS: BP 135/71
--- NOTE | 2018-03-07 13:36 | SOCIAL WORKER PROG NOTE PSYCH ---
Social Work Progress Note Progress Note Determination Status: PENDED The services requested require additional review. You will be contacted regarding the status of this request if further information is needed. An authorization decision will be made within the required timeframes and details of that decision may be found under the member's authorization history. Member Name Member ID Member Subscriber Name Subscriber ID ELIZABETH WALKERIDY [id number] ELIZABETH WALKERIDY [id number] Pended Authorization # Client Authorization # Type of Request [id number] CONCURRENT Date of Admission/ Start of Services Requested From Submission Date 01/22/2018 03/07/2018 03/07/2018
[2018-03-07 15:39] VITALS: BP 124/75
--- NOTE | 2018-03-07 17:02 | SOCIAL WORKER PROG NOTE PSYCH ---
See Addendum Social Work Progress Note Progress Note Spoke with Korina from [facility]. Rajani has an intake on 03/12 at 2pm. She will be seen within a couple of weeks for a med eval. Met with Rajani and Anabella Patterson(granite cutter from [facility]). Anabella reviewed services with Rajani. Rajani talked a little about what brought her in. We talked about her presentation throughout her hospital stay. Rajani seems interested in engaging in their services. She was happy to see a familiar face, due to knowing Anabella from the past. Informed Anabella that she will be staying in [place] temporarily until they find an apartment elsewhere. She is also aware that Rajani has limitations around transportation right now. Anabella said once Shae comes in they will get her connected to case management as soon as possible and cm can then help with rides. They will also help her get reinstated with [facility] Gerard's focus througout the conversation was on Fernandez and their relationship.
[2018-03-07 19:35] VITALS: BP 123/70
[2018-03-08 07:49] VITALS: BP 127/74
[2018-03-08] MEDS ORDERED: ASPIRIN EC81 M1 PO (08:31)
[2018-03-08] MEDS ORDERED: LIPITOR40 M1 PO (08:31)
[2018-03-08] MEDS ORDERED: KLONOPIN1 M1 PO (08:31)
[2018-03-08] MEDS ORDERED: ZYPREXA ZYDIS20 MG PO (08:38)
--- NOTE | 2018-03-08 08:38 | SOCIAL WORKER PROG NOTE PSYCH ---
Social Work Progress Note Progress Note Dr. Lugo and I spoke with Rajani this morning about her d/c plan. Rajani had mixed feelings about leaving the hospital. She feels sad about leaving all the people that have been so helpful to her. She is being discontinued from [place] due to complaints of side effects throughout the week. Dr. Lugo reviewed her current medications with her. She continues to have auditory hallucinations , but they are positive in nature. Talked about her most likely having a co-pay for her meds since she is only on Medicare right now. We will find out what the cost will be before she leaves today. Meds cost $7.50. Rajani had her checkbook to make the payment. She got her meds filled here at [facility]. Called [facility] to bring her to [facility]. The hospital paid for the cab fare. Wished Rajani well and reminded her that she can always come back to the ER if there are any problems. I reminded her of her appt. with [facility] on Sunday at 2pm.
[2018-03-08] MEDS ORDERED: SYNTHROID137 MCG PO (08:40)
[2018-03-08] MEDS ORDERED: GLUCOPHAGE500 M1 PO (08:40)
--- NOTE | 2018-03-08 08:41 | Patient Discharge Instructions ---
Psych Discharge Inst General Discharge Information Reason for Admission: acute psychosis Psy Discharge Primary Diag+ schizoaffective Disorder Summary Tests/Major Procedures Lab Cholesterol 183 MG/DL 01/22/18 1120 Cholesterol/HDL Ratio 3 % 01/22/18 1120 HDL Cholesterol 59 mg/dL 01/22/18 1120 Hemoglobin A1c 6.0 % H 01/22/18 1120 LDL Cholesterol, Calc 83 mg/dL 01/22/18 1120 Triglycerides 209 mg/dL H 01/22/18 1120 Studies Pending at DC: none Patient Instructions Contact Information Your Psychiatrist on [facility] was Vince Lugo MD * If you are experiencing an emergency related to this hospitalization, please call [phone] to contact the treating psychiatrist or the psychiatrist-on- call. * To Request a copy of your medical records, please contact the Medical Records Department at [phone]. * To request results of studies pending at the time of discharge, please call [phone]. * Continue your Medications until directed to stop by your Healthcare provider. General Medication Information Please continue to take your new medications and your continued home medications , unless otherwise indicated on your discharge medication list, or unless directed by your MD or TARIFF COMPILING CLERK to stop them. Special Instructions Diet Diabetic Activity Normal - Tobacco Use Treatment Offered Post DC Medications Offered: Not Applicable Post DC Tobacco Treatment Plan: Not Applicable - EtOH/Drug Use D/O Treatment Offered Post DC Medications Offered: NA-No EtOH/Drug Use D/O Post DC EtOH/SubAbuse [place] Plan: NA-No EtOH/Drug Use D/O Metabolic Screening Patient on a neuroleptic(s) . Enter below results for Hemoglobin A1C, and lipid panel if obtained during the last 365 days. BMI: 25.700 Blood Pressure: 127/74 Laboratory Results From [facility] (If applicable): Lab Cholesterol 183 MG/DL 01/22/18 1120 Cholesterol/HDL Ratio 3 % 01/22/18 1120 HDL Cholesterol 59 mg/dL 01/22/18 1120 Hemoglobin A1c 6.0 % H 01/22/18 1120 LDL Cholesterol, Calc 83 mg/dL 01/22/18 1120 Triglycerides 209 mg/dL H 01/22/18 1120 Advance Directives Does the Patient have Medical Advance Directives No/Refused further info Does Pt have Psychiatric Advance Directives? No/Refused further info Does Patient have a Designated Surrogate Decision Maker: No Information About Psychiatric Advance Directives Provided? Refused Discharge Plan Post Hospital Treatment Plan: Jamel
--- NOTE | 2018-03-08 11:59 | SOCIAL WORKER PROG NOTE PSYCH ---
Social Work Progress Note Faxed Referral(s) Referred To: [facility] Transition of Care Documents sent: Health Summary Faxed to: Care Fax #: [phone] Faxed by: Janet No Date faxed: 03/08/18 Time Faxed: [phone]
--- NOTE | 2018-03-08 12:00 | CP SOUTH PROGRESS NOTE PSYCH ---
Psych (Inpt) Progress Note Progress Note Vital Signs Date Time Temp Pulse B/P B/P Pulse O2 O2 Flow FiO2 03/08 0749 97.3 89 127/74 03/07 1935 99.1 96 123/70 03/07 1539 97 124/75 Treatment team discussed Pt's progress, treatment plan, and aftercare plans. The treatment team included: LCSWs, RNs, Group Therapy staff, and psychiatrist. Mental Status Examination: Rajani was alert and oriented to time, place, and person. She was not talkative today & was not pressured. There were no delusions during the 10 minutes I spent with Rajani. She was focused on getting rid of lithium and approached the subject from several directions including a slew of side effect now and in the past She reported that audio hallucination have been not as loud or frequent, and they are becoming "all good" (i.e. voices are no longer telling her she deserves to be punished or deserves to , etc.) She denied feeling depressed, she was not tearful. She denied wishing or suicidal ideation She denied violent thoughts/homicidal ideation. Assessment: Rajani Fernandez is a 63-year-old White Female who was admitted on 2017 in a state of acute psychosis. Significant improvement since admission. Diagnoses (Last updated 02/27/2018): 1) Schizoaffective Disorder, Bipolar type 2) Tardive Dyskinesia 3) Parkinson's Disease Treatment Plan Update: D/C to self care (staying with ex-) 3) Parkinson's Disease Treatment Plan Update: Reduce [place] to 150 mg tonight then stop Continue Zyprexa 20 mg at bedtime Clonazepam 0.5 MG at bedtime
--- NOTE | 2018-03-08 12:02 | DISCHARGE SUMMARY REPORT-PSYCH ---
Visit Information Visit Dates/Diagnosis' Admission Date: 01/22/18 Discharge Date: 03/08/18 Reason for Admission: acute psychosis Psy Discharge Primary Diag: schizoaffective Disorder Hospital Course Significant Lab Findings: Treatment team discussed Pt's progress, treatment plan, and aftercare plans. The treatment team included: LCSWs, RNs, Group Therapy staff, and psychiatrist. Mental Status Examination: Rajani was alert and oriented to time, place, and person. She was not talkative today & was not pressured. There were no delusions during the 10 minutes I spent with Rajani. She was focused on getting rid of lithium and approached the subject from several directions including a slew of side effect now and in the past She reported that audio hallucination have been not as loud or frequent, and they are becoming "all good" (i.e. voices are no longer telling her she deserves to be punished or deserves to , etc.) She denied feeling depressed, she was not tearful. She denied wishing or suicidal ideation She denied violent thoughts/homicidal ideation. Assessment: Rajani Fernandez is a 63-year-old White Female who was admitted on 2017 in a state of acute psychosis. Significant improvement since admission. She probably will be discharged tomorrow Rajani has not intention of staying on [place] Diagnoses (Last updated 02/27/2018): 1) Schizoaffective Disorder, Bipolar type 2) Tardive Dyskinesia 3) Parkinson's Disease Treatment Plan Update: Reduce [place] to 150 mg tonight then stop Continue Zyprexa 20 mg at bedtime Clonazepam 0.5 MG at bedtime Aspirin 81 MG DAILY 01/23 09 AC 03/06 Atorvastatin Calcium 40 MG 01/23 1700 AC 03/05 Benzocaine/Menthol 1 MARIA GUADALUPE Q4 HRS NEEDED PRN 01/31 1200 AC 02/18 Levothyroxine Sodium 0.137 MG DAILY AC 01/23 07 AC 03/06 Magnesium Hydroxide 30 ML AT BEDTIME PRN 01/22 2200 AC 01/29 Metformin HCl 500 MG 0800,02/15 08 AC 03/06 Multivitamins 1 TAB 02/22 0800 AC 03/06 DICTATED BY: Brittney WANG,Vince Course Complications: The patient did not have any major complications while she was on the inpatient psychiatric unit. Consultations: The patient had a history and physical examination performed by the general claims agent. Please refer to the patient's electronic health record for the details of the H& P. Allergies: Coded Allergies: No Known Allergies (02/28/18) Hospital Course/TX Response: The patient stayed in the inpatient psychiatric unit for an extended period of time 01/22/2018 to 03/08/2018. During her lengthy stay, the mainstay of her psychotropic regimen regimen was Zyprexa. The dose was gradually titrated at one point reaching 30 mg per day. However the dose had to be reduced back to 20 mg because of complaints about side effects especially when it was combined with lithium. The patient was pretty much against lithium for most of her stay until about 2 weeks prior to her discharge she agreed to start the lithium reluctantly and she did in fact stopped taking it but have a slew of complaints about the side effects and made it very clear she had that she has no intention of continuing to take this medication following her discharge. Because of her history of not adherent to medications if she does not like them, I gradually titrated the lithium and it was not included as part of her discharge medications. She received her last dose of lithium (150 mg) the night before her discharge. The patient's progress on the unit was slow but consistent. The patient's improvement was considered significant compared to the first 2 or 3 days she was on the unit as she was incoherent at the time and hit his speech was very close to being gibberish. By the time of her discharge she was very coherent and carrying on very long winded conversations. The patient's delusions remained at the time of her discharge but they were significantly more benign and less frequent and not as intrusive. On the first few weeks, she had delusions that her ex- or even family and grandchildren will be coming to the unit on the weekend to cut of her toes break her knees cut of her fingers and pocket eyes out and these delusions were completely gone by the time of her discharge. I had the same thing with hallucinations, which were much less frequent and much more benign at the time of her discharge. The last week or so of her stay on the inpatient unit she reported that she was no longer hearing any of the "bad" voices and she has no thoughts that she deserves to or that she deserves to be punished. These thoughts where very prominent in the first 3 or 4 weeks of her admission to the inpatient unit. Discharge HBIPS - Tobacco Use Treatment Offered Post DC Medications Offered: Not Applicable Post DC Tobacco Treatment Plan: Not Applicable - EtOH/Drug Use D/O Treatment Offered Post DC Medications Offered: NA-No EtOH/Drug Use D/O Post DC EtOH/SubAbuse TX Plan: NA-No EtOH/Drug Use D/O Metabolic Screening - Screen if on a Neuroleptic Medication - Metabolic screening should include: - Blood Pressure, BMI, Glucose or Hgb A1c, & a - Lipid profile from within the past 365 days. Metabolic Screening Patient on a neuroleptic(s) . Enter below results for Hemoglobin A1C, and lipid panel if obtained during the last 365 days. BMI: 25.700 Blood Pressure: 127/74 Laboratory Results From [facility] (If applicable): Lab Cholesterol 183 MG/DL 01/22/18 1120 Cholesterol/HDL Ratio 3 % 01/22/18 1120 HDL Cholesterol 59 mg/dL 01/22/18 1120 Hemoglobin A1c 6.0 % H 01/22/18 1120 LDL Cholesterol, Calc 83 mg/dL 01/22/18 1120 Triglycerides 209 mg/dL H 01/22/18 1120 Discharge Instructions General Discharge Information Multiple Neuroleptics: ([X]) Not Applicable Discharge Diet Diabetic Discharge Activity Normal DC Disposition: self-care/ staying with ex- Referrals Ordered Referrals Provider Referral 03/12/18 For Groups: [ Care] Care intake appt. 03/12/18 2pm [address] [place] [address] Prescriptions Stop taking the following medications: Metformin HCl (Metformin HCl) 1,000 MG TABLET ORAL TWICE DAILY Qty = 60 Benztropine Mesylate (Benztropine Mesylate) 0.5 MG TABLET ORAL Every Morning Qty = 90 Benztropine Mesylate (Benztropine Mesylate) 0.5 MG TABLET ORAL Every night Propranolol HCl (Propranolol HCl) 10 MG TABLET ORAL TWICE DAILY Risperidone (Risperidone) 2 MG TABLET ORAL TWICE DAILY Qty = 60 Carbamazepine (Tegretol XR) 200 MG TAB.ER.12H ORAL TWICE DAILY Qty = 60 Trazodone HCl (Trazodone HCl) 50 MG TABLET ORAL TAKE AT BEDTIME as needed for MENTAL HEALTH/SLEEP Continue taking these medications: Atorvastatin Calcium (Lipitor) 40 MG TABLET 1 Tablet ORAL Every night Qty = 30 Comments: Last Taken:03/07/18 Time:5pm This prescription has been renewed Aspirin (Ecotrin*) 81 MG TABLET.DR 1 Tablet ORAL DAILY Qty = 30 Comments: Last Taken:03/08/18 Time:8am This prescription has been renewed Levothyroxine Sodium (Synthroid) 137 MCG TABLET 1 Tablet ORAL DAILY Qty = 60 Comments: Last Taken:03/08/18 Time:6am This prescription has been renewed Start taking the following new medications: Metformin Hydochloride (Glucophage) 500 MG TABLET 500 Milligram ORAL 0800,1700 Qty = 60 No Refills Comments: Last Taken:03/08/18 Time:8am Clonazepam (Klonopin) 1 MG TABLET 1 Tablet ORAL AT BEDTIME Qty = 30 No Refills Comments: Last Taken:03/07/18 Time:8pm Olanzapine (Zyprexa Zydis) 20 MG TAB.RAPDIS 1 Tablet ORAL Every night Qty = 30 No Refills Comments: Last Taken:03/07/18 Time:8pm Studies Pending at Discharge none Copies To: Jamel
== END 2018-03-08 11:44 | DRG 885 ==
LOC: ERH 10:05 → ERHI 22:30 → CP SOUTH 22:30 → ENRESERV 23:55 → CP SOUTH 23:55
PROVIDERS: Emergency Medicine; Psychiatry & Neurology Psychiatry
DX: F25.9 Schizoaffective disorder, unspecified (principal)
CPT/HCPCS: 36415; 80307; 81003; 93005; 93010; G0463; G0480; J3490

== ENCOUNTER 2018-03-28 21:33 | Inpatient (IN) | payer OTHER, MEDICARE ==
[~2018-03-28] VITALS: Ht 162.6 cm; Wt 68.0 kg
[~2018-03-28 21:33] MED LIST changes: +GLUCOPHAGE500 M1 PO; +KLONOPIN1 M1 PO; +ZYPREXA ZYDIS20 MG PO
--- NOTE | 2018-03-28 22:05 | ED GENERAL ADULT ---
History of Present Illness General Chief Complaint: Psychiatric Related Complaint Stated Complaint: DELIRIOUS & OFF MEDS Source: patient Exam Limitations: clinical condition, poor historian Vital Signs & Intake/Output Vital Signs & Intake/Output Vital Signs Date Time Temp Pulse Resp B/P B/P Pulse O2 O2 Flow FiO2 Mean Ox Delivery Rate 03/29 1338 99.2 65 18 123/63 98 Room Air 03/29 0928 97.7 61 15 120/61 99 Room Air Room Air 03/29 0643 98.5 63 18 105/67 98 Room Air 03/29 0514 97 Room Air 03/29 0217 97.8 74 18 136/69 99 Room Air 03/29 0009 98.6 79 18 131/68 98 Room Air 03/28 2154 98.8 77 18 139/75 95 Room Air ED Intake and Output 03/29 0000 03/28 1200 Intake Total Output Total Balance Patient 150 lb Weight Weight Reported by Patient Measurement Method Allergies Coded Allergies: No Known Allergies (02/28/18) Reconcile Medications Aspirin (Ecotrin*) 81 MG TABLET.DR 1 TAB PO DAILY HEART/BLOOD Atorvastatin Calcium (Lipitor) 40 MG TABLET 1 TAB PO QPM CHOLESTEROL Clonazepam (Klonopin) 1 MG TABLET 1 TAB PO AT BEDTIME schizoaffective disorder Levothyroxine Sodium (Synthroid) 137 MCG TABLET 1 TAB PO DAILY THYROID Metformin Hydochloride (Glucophage) 500 MG TABLET 500 MG PO 0800,1700 DM Olanzapine (Zyprexa Zydis) 20 MG TAB.RAPDIS 1 TAB PO QPM schizoaffective disorder Triage Note: PT BROUGHT TO ED BY SISTER FOR AMS. PMH OF SCHIZO AFFECTIVE, HAS NOT BEEN TAKING HER MEDS FOR APPOX 3 WEEKS. PMH OF HYPOTHYROID LISTED IN COMPUTER. "PT STATES MY, THYROID IS FINE" "THEY DUPED ME AT [facility]" PT LIP SMACKING IN TRIAGE. FLIGHT OF IDEAS. SISTER STATES PATIENT DROVE TO HER HOUSE WEARING WINTER CLOTHES. PT DENIES SI/HI. DENIES ETOH/DRUGS. Triage Nurses Notes Reviewed? yes Onset: Abrupt Duration: day(s): Timing: recent history HPI: 03/28/18 63 YEAR OLD FEMALE BROUGHT IN BY SISTER FOR NOT TAKING MEDICATIONS, NOT ACTING RIGHT HISTORY OF SCHIZO AFFECTIVE DISORDER. Patient denies any complaints on my questioning. She says she is just here because she has no place else to go. She is disorganized and has pressured speech. Patient was just discharged from the emergency department less than 24 hours ago. (Solitario Keita DO) Past History Travel History Traveled to [place] past 21 day No Medical History Any Pertinent Medical History? see below for history Neurological: NONE (3 older sibs have Parkinson's), peripheral neuropathy EENT: NONE Cardiovascular: hypertension, hyperlipidemia Respiratory: NONE Gastrointestinal: NONE Hepatic: NONE Renal: NONE Musculoskeletal: NONE Psychiatric: depression, schizo affective disorder Endocrine: Hypothyroidism Blood Disorders: NONE Cancer(s): NONE CIVILIAN TECHNICIAN/Reproductive: NONE History of MRSA: No History of VRE: No History of CDIFF: No Surgical History Surgical History: non-contributory Psychosocial History Who do you live with Spouse Services at Home Nursing What is your primary language Guinean Tobacco Use: Quit >30 days ago ETOH Use: denies use Illicit Drug Use: denies illicit drug use Family History Hx Contributory? No (Solitario Keita DO) Review of Systems Review of Systems Constitutional: Denies: fever. EENTM: Reports: no symptoms. Respiratory: Reports: no symptoms. Cardiovascular: Reports: no symptoms. GI: Reports: no symptoms. Genitourinary: Reports: no symptoms. Musculoskeletal: Reports: no symptoms. Skin: Reports: no symptoms. Neurological/Psychological: Reports: see HPI. Hematologic/Endocrine: Reports: no symptoms. Immunologic/Allergic: Reports: no symptoms. (Solitario Keita DO) Physical Exam Physical Exam General Appearance: alert, awake, anxious, moderate distress Head: atraumatic, normal appearance Eyes: Bilateral: normal appearance, PERRL, EOMI. Ears, Nose, Throat: normal pharynx, normal ENT inspection Neck: normal inspection, supple, full range of motion Respiratory: normal breath sounds, chest non-tender, no respiratory distress Cardiovascular: regular rate/rhythm Peripheral Pulses: 4+ radial (R), 4+ radial (L) Gastrointestinal: soft, non-tender Back: normal range of motion Extremities: no edema Neurologic/Psych: no motor/sensory deficits, awake, alert Skin: intact, normal color, warm/dry Core Measures ACS in differential dx? No CVA/TIA Diagnosis: No Sepsis Present: No Sepsis Focused Exam Completed? No (Solitario Keita DO) Progress Differential Diagnoses I considered the following diagnoses in my evaluation of the patient: [SCHIZO AFFECTIVE DISORDER, ETOH INTOX, SUBSTANCE ABUSE] Plan of Care: Orders Procedure Date/time Status Heart Healthy Diet 03/29 B Active Admit to inpatient psych 03/29 1353 Active Continuous Observation Monitor 03/29 0204 Active Add-on Test (ER Only) 03/29 0028 Active THYROID STIMULATING HORMONE 03/28 2325 Complete THYROXINE 03/28 2325 Complete Add-on Test (ER Only) 03/28 2236 Active Continuous Observation Monitor 03/28 2206 Active URINE DRUG SCREEN FOR ER ONLY 03/28 2206 Complete LITHIUM 03/28 2206 Complete ETHANOL 03/28 2206 Complete COMPREHENSIVE METABOLIC PANEL 03/28 2206 Complete CBC WITHOUT DIFFERENTIAL 03/28 2206 Complete ED CRISIS PSYCH CONSULT 03/28 2206 Active Laboratory Tests 03/28/182326: Urine Opiates Screen < 100, Methadone Screen < 40, Barbiturate Screen < 60, Ur Phencyclidine Scrn < 6.00, Amphetamines Screen < 100, U Benzodiazepines Scrn < 85, Urine Cocaine Screen < 50, Urine Cannabis Screen < 5.00 03/28/182324: Anion Gap 11, Estimated GFR > 60, BUN/Creatinine Ratio 18.9, Glucose 153 H, Calcium 9.0, Total Bilirubin 0.3, AST 18, ALT 37, Alkaline Phosphatase 91, Total Protein 7.4, Albumin 4.0, Globulin 3.4, Albumin/Globulin Ratio 1.2, TSH 14.100 H, Thyroxine (T4) 5.5, CBC w Diff NO MAN DIFF REQ, RBC 3.81 L, MCV 90.6, MCH 30.2, MCHC 33.3, RDW 13.2, MPV 7.9, Gran % 60.9, Lymphocytes % 29.3, Monocytes % 7.6, Eosinophils % 1.4, Basophils % 0.8, Absolute Granulocytes 4.4, Absolute Lymphocytes 2.1, Absolute Monocytes 0.6, Absolute Eosinophils 0.1, Absolute Basophils 0.1, [place] < 0.2 L, Serum Alcohol < 10.0 Initial ED EKG: none (Solitario Keita DO) Comments: 03/29/2018 8:14:52 AM patient signed out to me by Dr. 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 Carol is resting comfortably at this time. (Dorina WANG,Solitario Chandler) Departure Departure Disposition: STILL A PATIENT Condition: Stable Clinical Impression Primary Impression: Schizo-affective schizophrenia Referrals: Hadley Linda MD (PCP/Family) Departure Forms: Customer Survey General Discharge Information Comments The patient is pending evaluation by crisis. She'll be signed out to Dr. Jim at 1 AM (Solitario Keita DO) Departure Comments pt to be signed out to dr. lópez, 03/29/18, 7am. (Diandra WANG,Cayden Hernandez) Psych Admission Note Psychiatric Admission: I have seen and evaluated ELIZABETH ANGELO. I have also reviewed all the pertinent lab results and diagnostic results. ELIZABETH ANGELO will be admitted to our inpatient Psychiatric unit for treatment and care. (Dorina WANG,Solitario Chandler) Critical Care Note Critical Care Note Critical Care Time: non-applicable (Solitario Keita DO)
[2018-03-28 23:33] LABS: ABSOLUTE BASOPHIL COUNT 0.1 /CUMM (0.0-0.2); ABSOLUTE EOSINOPHIL COUNT 0.1 /CUMM (0.0-0.7); ABSOLUTE GRANULOCYTE CT 4.4 /CUMM (1.4-6.5); ABSOLUTE LYMPH COUNT 2.1 /CUMM (1.2-3.4); ABSOLUTE MONOCYTE COUNT 0.6 /CUMM (0.10-0.60); BASOPHIL % 0.8 % (0.0-2.0); EOSINOPHIL % 1.4 % (0-5); GRANULOCYTE % 60.9 % (42.2-75.2); HEMATOCRIT 34.5 % (37-47); MEAN CORPUSCULAR HGB 30.2 PG (27.0-31.0); MEAN CORPUSCULAR HGB CONC 33.3 G/DL (33.0-37.0); MEAN CORPUSCULAR VOLUME 90.6 FL (81.0-99.0); MEAN PLATELET VOLUME 7.9 FL (7.4-10.4); PLATELET COUNT 170 /CUMM (130-400); RBC DISTRIBUTION WIDTH 13.2 % (11.5-14.5); RED BLOOD CELL CT 3.81 /CUMM (4.20-5.40); WHITE BLOOD CELL COUNT 7.3 /CUMM (4.8-10.8)
[2018-03-29 00:08] LABS: LITHIUM < 0.2 mmol/L (0.6-1.2)
--- NOTE | 2018-03-29 12:42 | ED PSYCH CRISIS CONSULTATION ---
Crisis Consult Basic Assessment Date of Consult: 03/29/18 Responsible Person/Accompanied By: Erma pt's sister Insurance Authorization: Insurance #1: Insurance name: MEDICARE A Phone number: Policy number: [id number] Group number: Authorization number: ED Provider: Patient's ED Provider: Solitario eKita DO Primary Care Physician: Patient's PCP: Hadley Linda MD PCP's Current Psychiatrist: Vince Lugo MD Chief Complaint: Psychiatric Related Complaint Patient's Quote: "I hear a lot of things" Present Illness: Pt is a 63 year old female, brought to the ED by her sister Erma. Pt's presents as disorganized, nonsensical. Pt consistently smacked her lip as she spoke. Pt was alert and oriented, she was able to say the dated and year and who is the president. Pt denies suicidal or homicial thoughts. However, her affect was inappropriate. Pt states she was hearing voices telling her "good things". Pt smiled as she said the voices told her "my brother Sean is still alive and he is here with his , he has a happy face and he loves his automobile" direct care counselor contacted pt's daughter Luci Fernandez, who reports that her mother threw away her medications and showed up at the pt's sister's house today in a winter coat and acting "strange". According to Luci, both the pt and Luci's father Fernandez Fernandez are homeless and living at a motel. As far as Luci knows Fernandez Fernandez is currently inpatient at [facility]. Pt's utox screen indicates a [place] level of 0.2 and a TSH level of 14.100. This is consistent with what was reported by the pt's daughter Luci and sister Erma that the pt hasn't taken her medications for the past three weeks. Patient's Address: [address] [place] [address] Other Phone Number: Who Do You Live With? Other (see notes) Family/Informants Interviewed: direct care counselor attempted to contact Erma. no answer. Clinician spoke to Luci Fernandez Daughter who shared that her mother has been noncompliant with medication treatment for the past 3 weeks. Allergies - Coded Allergies: No Known Allergies (02/28/18) Current Medications - Scheduled Medications Aspirin (Ecotrin*) 81 MG TABLET.DR 1 TAB PO DAILY HEART/BLOOD #30 TAB Prescribed by Vince Lugo MD on 03/08/18 Last Taken: At an unknown date and time Atorvastatin Calcium (Lipitor) 40 MG TABLET 1 TAB PO QPM CHOLESTEROL #30 TAB Prescribed by Vince Lugo MD on 03/08/18 Last Taken: At an unknown date and time Clonazepam (Klonopin) 1 MG TABLET 1 TAB PO AT BEDTIME schizoaffective disorder #30 TAB Prescribed by Vince Lugo MD on 03/08/18 Last Taken: At an unknown date and time Levothyroxine Sodium (Synthroid) 137 MCG TABLET 1 TAB PO DAILY THYROID #60 TAB Prescribed by Vince Lugo MD on 03/08/18 Last Taken: At an unknown date and time Metformin Hydochloride (Glucophage) 500 MG TABLET 500 MG PO 0800,1700 DM #60 TAB Prescribed by Vince Lugo MD on 03/08/18 Last Taken: At an unknown date and time Olanzapine (Zyprexa Zydis) 20 MG TAB.RAPDIS 1 TAB PO QPM schizoaffective disorder #30 TAB Prescribed by Vince Lugo MD on 03/08/18 Last Taken: At an unknown date and time Laboratory Results: Laboratory Tests 03/28/18 2327: Urine Opiates Screen < 100, Methadone Screen < 40, Barbiturate Screen < 60, Ur Phencyclidine Scrn < 6.00, Amphetamines Screen < 100, U Benzodiazepines Scrn < 85, Urine Cocaine Screen < 50, Urine Cannabis Screen < 5.00 03/28/18 2325: Anion Gap 11, Estimated GFR > 60, BUN/Creatinine Ratio 18.9, Glucose 153 H, Calcium 9.0, Total Bilirubin 0.3, AST 18, ALT 37, Alkaline Phosphatase 91, Total Protein 7.4, Albumin 4.0, Globulin 3.4, Albumin/Globulin Ratio 1.2, TSH 14.100 H, Thyroxine (T4) 5.5, CBC w Diff NO MAN DIFF REQ, RBC 3.81 L, MCV 90.6, MCH 30.2, MCHC 33.3, RDW 13.2, MPV 7.9, Gran % 60.9, Lymphocytes % 29.3, Monocytes % 7.6, Eosinophils % 1.4, Basophils % 0.8, Absolute Granulocytes 4.4, Absolute Lymphocytes 2.1, Absolute Monocytes 0.6, Absolute Eosinophils 0.1, Absolute Basophils 0.1, [place] < 0.2 L, Serum Alcohol < 10.0 Past History Past Medical History Neurological: NONE (3 older sibs have Parkinson's), peripheral neuropathy EENT: NONE Cardiovascular: hypertension, hyperlipidemia Respiratory: NONE Gastrointestinal: NONE Hepatic: NONE Renal: NONE Musculoskeletal: NONE Psychiatric: depression, schizo affective disorder Endocrine: Hypothyroidism Blood Disorders: NONE Cancer(s): NONE 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 Past Surgical History Surgical History: non-contributory Psychosocial History Strengths/Capabilities: Supportive family Physical Limitations (Interventions): none Psychiatric Treatment History Psych Treatment Psychiatric Treatment Yes Inpatient Treatment Yes Outpatient Treatment Yes Location of Treatment [facility] Reason for Treatment Schizoaffective Disorder Dates of Treatment 01/22/18-03/08/18 Response to Treatment Noncompliant with medication treatment Diagnosis by History: Schizoaffective Disorder bipolar type Substance Use/Abuse History Drug Use/Abuse Substances Used/Abused No First Use n/a Last Used n/a How much used/taken n/a How often n/a For how long n/a Route of use n/a Substance Abuse Treatment Substance Abuse Treatment Past Substance Abuse [place] No Inpatient Treatment No Outpatient Treatment No Location of Treatment n/a Reason for Treatment n/a Dates of Treatment n/a Response to Treatment n/a Current Mental Status Mental Status Orientation: Confused Affect: Anxious Speech: Incoherent, Mumbled Neuro-vegetative: Concentration Poor Appearance Appearance- Dress/Hygiene: Pt in hosptial attire, but was wearing winter clothes according to family's report today. Behaviors Thought Process: Disorganized, Loose Association Thought Content: Auditory Hallucinations Memory: Impaired Insight: Poor SI/HI Risk Assessment Past Suicidal Ideation/Attempts No Current Suicidal Ideation/Att No Past Homicidal Ideation/Att: No Current Homicidal Ideation/Attempts No Degree of Intent: None Danger To: n/a Gravely Disabled: Inability, Lack of Insight, Poor Judgment Risk Factors: age (under 24/over 65), high anxiety/distress, SA/MH hospitalized Lethality Ratin PTSD Checklist PTSD Done? pt unable to participate ED Management Sitter: Yes Restraints: No DSM5/PS Stressors/Medical Prob Diagnosis' (DSM 5, Stressors, Medical): F25.9 Schizoaffective Disorder, Bipolar Type, Tardive Dyskinesia, Parkinson's Disease Hypothyrodism, Diabetes Type 2, Homeless Current GAF: 14-18 Departure Disposition Psych Medical Clearance Date: 03/29/18 Medically Cleared at: 0800 Time Started: 921 Time Ended: 954 Psychiatrist Consulted: Vince Lugo MD Date Disposition Established: 03/29/18 Time Disposition Established: 1100 Plan for Disposition - Modality: Inpatient Psychiatry Facility: [facility] Follow-up Appt Date: 03/29/18 Follow-Up Appt Time: 1300 Contact: [facility] Telephone: [phone] Rationale for Disposition: Pt present to the ED with acute psychotic symptoms. Pt reports auditory halluciations, she is disorganized, confused with anxious mood. Pt has been noncompliant with medications for the past 3 weeks since her discharge from [facility] on 03/08/18. Presently, pt meets criteria for inpatient admission. Type of IP Admission: PEC Referrals Hadley Linda MD (PCP/Family)
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
[2018-03-29 14:47] VITALS: BP 129/72
[2018-03-29 15:38] VITALS: BP 119/69
--- NOTE | 2018-03-29 19:22 | History & Physical ---
General Information and HPI MD Statement: I have seen and personally examined ELIZABETH ANGELO and documented this H&P. The patient is a 63 year old F who presented with a patient stated chief complaint of "I hear a lot of things". Source of Information: patient, family, old records Exam Limitations: unable to give history History of Present Illness: 63-year-old white female known to [facility] was brought in by her sister change in mental status, she has history of schizoaffective disorder and has not been taking her medications for about 3 weeks. Comes in disorganized nonsense with inappropriate affect, hearing voices , per daughter acting "strange" wearing winter clothes apparently she is homeless and living in a motel. For this reasons she is admitted for treatment Allergies/Medications Allergies: Coded Allergies: No Known Allergies (02/28/18) Home Med list Aspirin (Ecotrin*) 81 MG TABLET.DR 1 TAB PO DAILY HEART/BLOOD Atorvastatin Calcium (Lipitor) 40 MG TABLET 1 TAB PO QPM CHOLESTEROL Clonazepam (Klonopin) 1 MG TABLET 1 TAB PO AT BEDTIME schizoaffective disorder Levothyroxine Sodium (Synthroid) 137 MCG TABLET 1 TAB PO DAILY THYROID Metformin Hydochloride (Glucophage) 500 MG TABLET 500 MG PO 0800,1700 DM Olanzapine (Zyprexa Zydis) 20 MG TAB.RAPDIS 1 TAB PO QPM schizoaffective disorder Compliance With Home Meds: POOR Past History Travel History Traveled to [place] past 21 day No Medical History Neurological: NONE (3 older sibs have Parkinson's), peripheral neuropathy EENT: NONE Cardiovascular: hypertension, hyperlipidemia Respiratory: NONE Gastrointestinal: NONE Hepatic: NONE Renal: NONE Musculoskeletal: NONE Psychiatric: depression, schizo affective disorder Endocrine: Hypothyroidism Blood Disorders: NONE Cancer(s): NONE 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 Home Services at Home: Nursing ETOH Use: denies use Illicit Drug Use: denies illicit drug use Review of Systems Review of Systems Constitutional: Reports: see HPI. Exam & Diagnostic Data Last 24 Hrs of Vital Signs/I&O Vital Signs Date Time Temp Pulse Resp B/P B/P Pulse O2 O2 Flow FiO2 Mean Ox Delivery Rate 03/29 1538 74 119/69 03/29 1447 98.1 67 129/72 03/29 1338 99.2 65 18 123/63 98 Room Air 03/29 0928 97.7 61 15 120/61 99 Room Air Room Air 03/29 0643 98.5 63 18 105/67 98 Room Air 03/29 0514 97 Room Air 03/29 0217 97.8 74 18 136/69 99 Room Air 03/29 0009 98.6 79 18 131/68 98 Room Air 03/28 2154 98.8 77 18 139/75 95 Room Air Intake & Output 03/29 1600 03/29 0800 03/29 0000 Intake Total Output Total Balance Patient 150 lb 150 lb Weight Weight Reported by Patient Measurement Method Physical Exam General Appearance Alert, Oriented X3 Skin No Rashes, No Breakdown HEENT PERRLA, EOMI Neck Supple, No JVD Lymphatic Axillary nl, Cervical nl Cardiovascular Regular Rate, No Murmurs Lungs Clear to Auscultation, Normal Air Movement Abdomen Soft, No Tenderness, No Hepatospenomegaly Neurological Exam Findings: not tested,smashing lips constantly. Cranial Nerves II through XII: Seem intact Extremities No Edema, Normal Pulses Vascular Normal Pulses, Pulses Symmetrical Last 24 Hrs of Labs/[place]: Laboratory Tests 03/28/187: Urine Opiates Screen < 100, Methadone Screen < 40, Barbiturate Screen < 60, Ur Phencyclidine Scrn < 6.00, Amphetamines Screen < 100, U Benzodiazepines Scrn < 85, Urine Cocaine Screen < 50, Urine Cannabis Screen < 5.00 03/28/18 2325: Anion Gap 11, Estimated GFR > 60, BUN/Creatinine Ratio 18.9, Glucose 153 H, Calcium 9.0, Total Bilirubin 0.3, AST 18, ALT 37, Alkaline Phosphatase 91, Total Protein 7.4, Albumin 4.0, Globulin 3.4, Albumin/Globulin Ratio 1.2, TSH 14.100 H, Thyroxine (T4) 5.5, CBC w Diff NO MAN DIFF REQ, RBC 3.81 L, MCV 90.6, MCH 30.2, MCHC 33.3, RDW 13.2, MPV 7.9, Gran % 60.9, Lymphocytes % 29.3, Monocytes % 7.6, Eosinophils % 1.4, Basophils % 0.8, Absolute Granulocytes 4.4, Absolute Lymphocytes 2.1, Absolute Monocytes 0.6, Absolute Eosinophils 0.1, Absolute Basophils 0.1, [place] < 0.2 L, Serum Alcohol < 10.0 Diagnostic Data ITS Data Unobtainable at this time Assessment/Plan As Ranked By This Provider Problem List: 1. Schizo affective schizophrenia 2. Bipolar disorder 3. Hypothyroid 4. Diabetes Miscellaneous Miscellaneous Documentation Attending Case Discussed With: Brittney WANG,Vince Primary Care Physician: Hadley Linda MD Patient sees these Specialists Psychiatry Level of Patient Care: CARLEE Parikh Consults Needed: Consulting Specialty: Psychiatry Consulting Physician: Dr Reyes Reason for Consult: Schizoaffective disorder johny not med. complaint.
[2018-03-29 19:54] VITALS: BP 124/65
[2018-03-30 07:53] VITALS: BP 138/73
[2018-03-30 12:12] VITALS: BP 137/69
--- NOTE | 2018-03-30 12:17 | CPS PROVIDER INIT ASMT PSYCH ---
Psychiatric Admission Information Clerk Cashier's Note Reviewed: Yes Patient Seen and Examined: Yes Identifying Information: 63 year old female Chief Complaint: "I hear a lot of things" Reaction to Hospitalization: The patient was admitted voluntarily History of Present Illness Onset of Illness: brought to the ED by her sister Erma. Pt's presents as disorganized, nonsensical. Pt consistently smacked her lip as she spoke. Pt was alert and oriented, she was able to say the dated and year and who is the president. Pt denies suicidal or homicial thoughts. However, her affect was inappropriate. Pt states she was hearing voices telling her "good things". Pt smiled as she said the voices told her "my brother Sean is still alive and he is here with his , he has a happy face and he loves his automobile" sales ledger clerk contacted pt's daughter Luci Fernandez, who reports that her mother threw away her medications and showed up at the pt's sister's house today in a winter coat and acting "strange". According to Luci, both the pt and Luci's father Fernandez Fernandez are homeless and living at a motel. As far as Luci knows Fernandez Fernandez is currently inpatient at [facility]. Circumstances Leading to Admission: Reportedly the patient has been more delusional lately Problem(s) Justifying Need for Admission: More delusional than usual Past Psychiatric History Past Diagnosis(es)- if any: Schizoaffective disorder bipolar type Past Precipitating Factors- if any: Medication nonadherence - Include inpatient and outpatient treatment Treatment History: The patient was discharged from the inpatient psychiatric unit at [facility] on March 08, 2018 It seems that the patient has not followed up with care as well as the discharge plan The patient has chronic history of schizoaffective disorder with multiple inpatient psychiatric hospitalizations History of Suicide Attempts or Gestures No history of suicide attempts. Substance Abuse History: The patient denied abusing alcohol or other substance his since July 2014 Allergies: Coded Allergies: No Known Allergies (02/28/18) Home Med List: Atorvastatin Calcium (Lipitor) 40 MG TABLET 1 Tablet ORAL Every night Qty = 30 Comments: Last Taken:03/07/18 Time:5pm This prescription has been renewed Aspirin (Ecotrin*) 81 MG TABLET. 1 Tablet ORAL DAILY Qty = 30 Comments: Last Taken:03/08/18 Time:8am This prescription has been renewed Levothyroxine Sodium (Synthroid) 137 MCG TABLET 1 Tablet ORAL DAILY Qty = 60 Comments: Last Taken:03/08/18 Time:6am This prescription has been renewed Start taking the following new medications: Metformin Hydochloride (Glucophage) 500 MG TABLET 500 Milligram ORAL 0800,1700 Qty = 60 No Refills Comments: Last Taken:03/08/18 Time:8am Clonazepam (Klonopin) 1 MG TABLET 1 Tablet ORAL AT BEDTIME Olanzapine (Zyprexa Zydis) 20 MG TAB.RAPDIS 1 Tablet ORAL Every night - Include any medical condition(s) that may - impact the patient's recovery/remission Past Medical History: Diabetes mellitus, Parkinson's disease, tardive dyskinesia Past History Medical History Neurological: NONE (3 older sibs have Parkinson's), peripheral neuropathy EENT: NONE Cardiovascular: hypertension, hyperlipidemia Respiratory: NONE Gastrointestinal: NONE Hepatic: NONE Renal: NONE Musculoskeletal: NONE Psychiatric: depression, schizo affective disorder Endocrine: Hypothyroidism Blood Disorders: NONE Cancer(s): NONE 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 History of MRSA: No History of VRE: No History of CDIFF: No Isolation History: Standard Surgical History Surgical History: non-contributory Psychiatric Family/Social Hx Family History Psychiatric Illness: No family psychiatric history according to old records Substance Use: No family history of substance abuse or alcoholism according to the previous records Suicides: No suicides in the family according to records Social History Living Situation: Patient is homeless Significant Relationships (family/friends): Her ex-, Zenon, and his sister and daughter Education: High school graduate Vocation/Occupation: Unemployed, on disability Legal: No legal entanglements Healthly Behaviors Screening Tobacco Screening Tobacco Use from ED Docu: Quit >30 days ago - If tobacco counseling indicated - the following topics are required. - #1 Recognizing dangerous situations. - #2 Coping Skills. - #3 Basic information about quitting. Status of Tobacco Cessation Counseling: Not Applicable Cessation Med Status Not Applicable Alcohol Screening - ETOH screen POS if BAL >=80 or Audit-C>= M4/F3 Audit-C Score from Diag Assess: 0 Blood Alcohol Level: Laboratory Tests 03/28 4233 Toxicology Serum Alcohol (<10 MG/DL) < 10.0 Alcohol Use Screening Results: Neg per Audit C &/or BAL - If ETOH counseling indicated - the following topics are required. - #1 Express concern about the patient's - drinking at unhealthy levels, include informing - of national norms for moderate drinking: - men <= 14 drinks/week, max 4 drinks/occasion - women <= 7 drinks/week, max 3 drinks/occasion - #2 Providing feedback, including linking alcohol to - negative physical effects (liver injury, hypertension) - negative emotional effects (relationship problems and - depression) - negative occupational consequences (reduced work - performance) - #3 Advising the patient to abstain from alcohol or - to drink below national norms for moderate drinking - (as listed above). Status of ETOH Use Counseling: N/A B/C NO ETOH Use Metabolic Screening - Screen if on a Neuroleptic Medication - Metabolic screening should include: - Blood Pressure, BMI, Glucose or Hgb A1c, & a - Lipid profile from within the past 365 days. Metabolic Screening Patient on a neuroleptic(s) . Enter below results for Hemoglobin A1C, and lipid panel if obtained during the last 365 days. BMI: 25.700 Blood Pressure: 137/69 Laboratory Results From [facility] (If applicable): Lab Cholesterol 183 MG/DL 01/22/18 1120 Cholesterol/HDL Ratio 3 % 01/22/18 1120 HDL Cholesterol 59 mg/dL 01/22/18 1120 Hemoglobin A1c 6.0 % H 01/22/18 1120 LDL Cholesterol, Calc 83 mg/dL 01/22/18 1120 Triglycerides 209 mg/dL H 01/22/18 1120 Exam and Plan Mental Status Examination Ambulation Status: The patient was steady on her feet. Appearance: The patient shows tardive dyskinesia over the oral facial muscles as well as some parkinsonian tremors Attitude towards examiner: The patient was calm and cooperative Psychomotor activity: Dyskinesia and tremors Behavior: No abnormal or bizarre behaviors Quality of speech: Talkative with mild pressure Affect: Full range of affect Mood: Slightly elevated Suicidal Ideation: Denied thoughts of suicide Homicidal Ideation: Denied thoughts of violence or homicide Hallucinations: She acknowledges multiple auditory hallucinations Paranoid/Delusional Material: There was no paranoia but there were grandiose delusions Difficulties with thought organization: He has the patient tends to be tangential circumstantial with some flights of ideas as well Insight: Poor insight Judgment: Poor judgment Orientation: Alert and oriented to time, place, and person. Cognition: She does not seem to have difficulties with information processing what she does have significant difficulty with attention and concentration Memory Function: No evidence of short-term memory impairments Estimate of intellectual functioning: Average Assets/Strengths Patient Identified Assets/Strengths: The patient is intelligent, likable, and social Impression/Plan Impression and Plan: 63-year-old white female with history of schizoaffective disorder returns approximately 3 weeks after her discharge from the inpatient unit because of what seems to be more delusional than usual and some thought disorder - Include all active medical diagnosis that require tx DSM 5 Diagnosis(es): Schizoaffective disorder, bipolar type Tardive dyskinesia of the oral facial muscles Parkinson's disease - Initial Tx Plan for Active Psych & Medical Conditions Treatment Plan: Inpatient psychiatric care Resume Zyprexa Continue other medications unchanged Nursing assessments, vital signs, and patient education Biopsychosocial assessment, collateral information, and aftercare planning by social work Group therapy, milieu therapy, and activities therapy - Factors that would help patient function - in a less restrictive setting. Factors: Patient will be discharge once his psychotic symptoms are under reasonable control
[2018-03-30 15:59] VITALS: BP 141/79
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
[2018-03-30 19:57] VITALS: BP 108/67
[2018-03-31 07:39] VITALS: BP 130/78
[2018-03-31 12:06] VITALS: BP 144/71
--- NOTE | 2018-03-31 12:26 | CP SOUTH PROGRESS NOTE PSYCH ---
Psych (Inpt) Progress Note Progress Note Vital Signs Date Time Temp Pulse B/P B/P O2 03/31 1206 82 144/71 03/31 0739 96.7 86 130/78 03/30 1957 97.9 73 108/67 Mental Status Examination: The patient remains grandiose/manic, talking about living in a mansion after her discharge, talking about brand-new life, and yesterday was talking about the SOUND RECORDING TECHNICIAN of the hospital coming to visit her. The patient was steady on her feet. The patient shows tardive dyskinesia over the oral facial muscles as well as some parkinsonian tremors The patient was calm and cooperative Dyskinesia and tremors, No abnormal or bizarre behaviors, Talkative with mild pressure The patient reported that her mood is very happy, and she looked elevated/ expansive in her affect Denied thoughts of suicide, Denied thoughts of violence or homicide, She acknowledges multiple auditory hallucinations, There was no paranoia but there were grandiose delusions, He has the patient tends to be tangential circumstantial with some flights of ideas as well, Poor insight, Poor judgment, Alert and oriented to time, place, and person. She does not seem to have difficulties with information processing what she does have significant difficulty with attention and concentration, no evidence of short-term memory impairments. Assessment: 63-year-old white female with history of schizoaffective disorder returns approximately 3 weeks after her discharge from the inpatient unit because of what seems to be more delusional than usual and some thought disorder Rajani remains in a manic-psychotic state with grandiose grandiose delusions but no significant thought disorder and she is in good behavioral control, calm and pleasant Diagnosis(es): Schizoaffective disorder, bipolar type Tardive dyskinesia of the oral facial muscles Parkinson's disease Treatment Plan: Increase Zyprexa to 15 mg at bedtime Cepacol lozenges for her oral dyskinesia Cognition: She does not seem to have difficulties with information processing what she does have significant difficulty with attention and concentration Memory Function: No evidence of short-term memory impairments Estimate of intellectual functioning: Average Assets/Strengths Patient Identified Assets/Strengths: The patient is intelligent, likable, and social Impression/Plan Impression and Plan: 63-year-old white female with history of schizoaffective disorder returns approximately 3 weeks after her discharge from the inpatient unit because of what seems to be more delusional than usual and some thought disorder - Include all active medical diagnosis that require tx DSM 5 Diagnosis(es): Schizoaffective disorder, bipolar type Tardive dyskinesia of the oral facial muscles Parkinson's disease - Initial Tx Plan for Active Psych & Medical Conditions Treatment Plan: Inpatient psychiatric care Resume Zyprexa Continue other medications unchanged Nursing assessments, vital signs, and patient education Biopsychosocial assessment, collateral information, and aftercare planning by social work Group therapy, milieu therapy, and activities therapy
[2018-03-31 15:53] VITALS: BP 126/74
[2018-03-31 19:53] VITALS: BP 105/59
[2018-04-01 07:56] VITALS: BP 119/78
[2018-04-01 12:08] VITALS: BP 137/71
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
[2018-04-01 15:35] VITALS: BP 136/63
--- NOTE | 2018-04-01 18:55 | CP SOUTH PROGRESS NOTE PSYCH ---
Psych (Inpt) Progress Note Progress Note Vital Signs Date Time Temp Pulse Resp B/P B/P Pulse O2 O2 Flow FiO2 Mean Ox Delivery Rate 04/01 1535 88 136/63 04/01 1208 83 137/71 04/01 0756 96.7 92 119/78 03/31 1953 98.0 84 105/59 Mental Status Examination: grandiose/manic, talking about living in a mansion, talking about brand-new life , steady on her feet. The patient shows orofacial tardive dyskinesia parkinsonian tremors, calm and cooperative Dyskinesia and tremors, talkative with mild pressure, reported that her mood is very happy, and she looked elevated/expansive in her affect, denied thoughts of suicide, Denied thoughts of violence or homicide, She acknowledges multiple auditory hallucinations, There was no paranoia but there were grandiose delusions, He has the patient tends to be tangential circumstantial with some flights of ideas as well, Poor insight, Poor judgment, Alert and oriented to time, place, and person. She does not seem to have difficulties with information processing what she does have significant difficulty with attention and concentration. Assessment: 63-year-old white female with history of schizoaffective disorder returns approximately 3 weeks after her discharge from the inpatient unit because of what seems to be more delusional than usual and some thought disorder Rajani continues to have grandiose delusions but no significant thought disorder and she is in good behavioral control, calm and pleasant Diagnoses: Schizoaffective disorder, bipolar type Tardive dyskinesia of the oral facial muscles Parkinson's disease Treatment Plan: continue Zyprexa 15 mg at bedtime
[2018-04-01 19:43] VITALS: BP 147/72
[2018-04-02 07:41] VITALS: BP 109/70
--- NOTE | 2018-04-02 10:44 | SOCIAL WORKER PROG NOTE PSYCH ---
Social Work Progress Note Progress Note Rajani was in bed this morning. I asked why she wasn't in group? She said "Fernandez is coming to get me at 11." Rajani thinks she is being discharged today. I told her that was not happening. She asked why she had to stay? I told her we are treating her symptoms due to some of what she is talking about is not reality. She continues to say that she has a big house in [place] to go to. She gets very giddy talking about it. I asked if she ever received her Social Security money? She said no, but then went on to say that she "has lots of money." She said she likes it at [facility] and she is learning things. When asked what she is learning? She said "to be good to myself." Encouraged her to get out of bed and go to group. She eventually did. Remains delusional about her current situation.
[2018-04-02 12:19] VITALS: BP 148/73
--- NOTE | 2018-04-02 13:32 | CP SOUTH PROGRESS NOTE PSYCH ---
Psych (Inpt) Progress Note Progress Note Vital Signs Date Time Temp Pulse B/P 04/02 1219 99 148/73 04/02 0741 97.2 78 109/70 04/01 1943 97.3 75 147/72 Mental Status Examination: grandiose delusions orofacial tardive dyskinesia parkinsonian tremors, She is steady on her feet, calm and cooperative talkative with mild pressure, reported that her mood is very happy, and she looked elevated/expansive in her affect, denied thoughts of suicide, denied thoughts of violence or homicide, acknowledged multiple auditory hallucinations, tangential circumstantial with some flights of ideas as well, alert and oriented to time, place, and person. She does not seem to have difficulties with information processing what she does have significant difficulty with attention and concentration. Assessment: Shae is a 63-year-old white female with history of schizoaffective disorder returns approximately 3 weeks after her discharge from the inpatient unit because of what seems to be more delusional than usual and some thought disorder. Rajani continues to have grandiose delusions but no significant thought disorder and she is in good behavioral control, calm and pleasant Diagnoses: Schizoaffective disorder, bipolar type Tardive dyskinesia of the oral facial muscles Parkinson's disease Treatment Plan: Increase Zyprexa to 20 mg at bedtime Al Hydroxide/Mg 30 ML Q4-6 PRN PRN 03/29 1500 AC Aspirin Buffered 81 MG DAILY 03/30 09 04/02 Atorvastatin Calcium 40 MG 03/29 170 04/01 Benzocaine/Menthol 1 MARIA GUADALUPE Q4 HRS NEEDED PRN 03/31 1245 AC 04/02 Calcium/Vitamin D 250 MG DAILY 03/30 0934 04/02 Levothyroxine Sodium 0.125 MG DAILY 03/30 0932 04/02 Lorazepam 0.5 MG Q4 HRS NEEDED PRN 03/29 1930 04/02 Lorazepam 1 MG Q6-PRN PRN 03/29 1500 AC Metformin HCl 500 MG 0800,03/29 1700 AC 03/29 Multivitamins 1 TAB DAILY 03/30 0933 04/02
[2018-04-02 15:40] VITALS: BP 129/70
[2018-04-02 19:38] VITALS: BP 126/82
[2018-04-03 07:46] VITALS: BP 106/70
--- NOTE | 2018-04-03 09:13 | CP SOUTH PROGRESS NOTE PSYCH ---
Psych (Inpt) Progress Note Progress Note Vital Signs Date Time Temp Pulse Resp B/P B/P Pulse O2 O2 Flow FiO2 04/03 1226 94 142/71 04/03 0746 97.4 88 106/70 04/02 1938 98.3 87 126/82 04/02 1540 68 129/70 Mental Status Examination: grandiose delusions are unchanges, no pressure in her speech, she is pleant, calm and cooperative orofacial tardive dyskinesia parkinsonian tremors, She is steady on her feet, reported that her mood is very happy, and she looked elevated/expansive in her affect, denied thoughts of suicide, denied thoughts of violence or homicide, multiple auditory hallucinations are less disctracting today thoughts are more coherent, alert and oriented to time, place, and person. She does not seem to have difficulties with information processing what she does have significant difficulty with attention and concentration. Assessment: Shae is a 63-year-old white female with history of schizoaffective disorder returns approximately 3 weeks after her discharge from the inpatient unit because of what seems to be more delusional than usual and some thought disorder. Rajani continues to have grandiose delusions but no significant thought disorder and she is in good behavioral control, calm and pleasant Diagnoses: Schizoaffective Disorder, bipolar type Tardive dyskinesia of the oral facial muscles Parkinson's disease Treatment Plan: Increase Zyprexa to 20 mg at bedtime Atorvastatin Calcium 40 MG Benzocaine/Menthol 1 MARIA GUADALUPE Q4 HRS NEEDED PRN Levothyroxine Sodium 0.125 MG DAILY AC Lorazepam 0.5 MG Q4 HRS NEEDED PRN Lorazepam 1 MG Q6-PRN PRN 06
[2018-04-03 12:26] VITALS: BP 142/71
--- NOTE | 2018-04-03 14:47 | SOCIAL WORKER PROG NOTE PSYCH ---
Social Work Progress Note Progress Note Met with Rajani this morning. She was talking with the man who was cleaning the fish tank. She stated she "doesn't need medications, that all she needs is Fernandez." She reports "feeling good" , was elated and giggly. She reports being tired, and states she didn't sleep well. She stated "[facility] took my thyroid out because i was barbara Verma (her daughter)." Her insight and judgement is very poor. Asked if she would consider going to [facility] in [place]. She refused. She stated "Fernandez and I have a local hazmat driver to take us places. " She is very focused on Fernandez. Delusional - seems much worst than prior admissions over the years. She reports no SI/Hi, denied hearing voices and seeing things.
[2018-04-03 16:19] VITALS: BP 131/62
[2018-04-03 19:38] VITALS: BP 128/71
[2018-04-04 07:40] VITALS: BP 121/76
--- NOTE | 2018-04-04 10:20 | SOCIAL WORKER PROG NOTE PSYCH ---
Social Work Progress Note Progress Note I Herb Jada met with Rajani today to see how she was doing. She was tangential and cooperative talking with me. She mentioned having a house in [place] with the plan that she was going to live there with Adan. She brought up how she liked my shoes and she wanted to buy Adan new loafers. She also mentioned that adan is going to come and take her out of here like a rapture. She expressed having an elevated mood but also being tired eventhough she claimed that she slept. She reports hearing voices that her brothers are alive but do not want her to see them. She mentioned that her sister and daughter made her get rid of her wedding band but she says she got it back. She was talking about not saying goodbye to Lucia last time she left and enjoyed the cookies she made. She said that the med that the nurses put her on did not work. continuing to work on appropriate discharge plan with Lester Fang.
[2018-04-04 12:04] VITALS: BP 135/59
--- NOTE | 2018-04-04 15:14 | CP SOUTH PROGRESS NOTE PSYCH ---
Psych (Inpt) Progress Note Progress Note Vital Signs Date Time Temp Pulse Resp B/P B/P Pulse O2 O2 Flow FiO2 04/04 1204 85 135/59 04/04 0740 97.6 91 121/76 04/03 1938 97.9 83 128/71 04/03 1619 71 131/62 Mental Status Examination: Rajani was alert and oriented to time, place, and person. grandiose delusions are unchanged, calm and cooperative orofacial tardive dyskinesia unchanged parkinsonian tremors (appear to be less pronounced) She is steady on her feet, reported that her mood is very happy, and she looked elevated/expansive in her affect, denied thoughts of suicide, denied thoughts of violence or homicide, Rajani seemed less distracted by her auditory hallucinations, thoughts are more coherent Assessment: Shae is a 63-year-old white female with history of schizoaffective disorder returns approximately 3 weeks after her discharge from the inpatient unit because of what seems to be more delusional than usual and some thought disorder. Rajani continues to have grandiose delusions but no significant thought disorder and she is in good behavioral control, calm and pleasant Diagnoses: Schizoaffective Disorder, bipolar type Tardive dyskinesia of the oral facial muscles Parkinson's disease Treatment Plan update: Continue Zyprexa 20 mg at bedtime Atorvastatin Calcium 40 MG Benzocaine/Menthol 1 MARIA GUADALUPE Q4 HRS NEEDED PRN Levothyroxine Sodium 0.125 MG DAILY AC Lorazepam 0.5 MG Q4 HRS NEEDED PRN
[2018-04-04 15:46] VITALS: BP 122/77
[2018-04-04 19:33] VITALS: BP 123/58
[2018-04-05 07:32] VITALS: BP 131/69
--- NOTE | 2018-04-05 10:52 | SOCIAL WORKER PROG NOTE PSYCH ---
See Addendum Social Work Progress Note Progress Note Sw met with the patient for her daily assessment. The patient appears irritable and anxious with mood lability. She stated that her mood was "elated," and did not elaborate further. She demanded to be discharged today, "stating that Fernandez is on his way here now in a taxi." When asked about treatment after discharge and who will prescribe her medications, she stated that she is better and that "she does not need that anymore." She reports that she is not taking medications and that she is only on vitamins, that she will get over the counter. SW asked about treatment at [facility] and signing a release, which she refused. She became very irritable, swung open the door and walked over to Dr. Lugo' s office, to demand to leave today. Dr. Lugo told her, that she will not be able to be discharged until Fernandez participates in a family meeting. Dr. Lugo reminded her that her goal was to contact him and ask him to call the staff here. She appeared to calm down and stated she will contact him and ask him to call and set up an appointment.
[2018-04-05 12:19] VITALS: BP 128/78
--- NOTE | 2018-04-05 12:31 | CP SOUTH PROGRESS NOTE PSYCH ---
Psych (Inpt) Progress Note Progress Note Mental Status Examination: Rajani was alert and oriented to time, place, and person. grandiose delusions are unchanged, today she was neither calm nor cooperative Perseverating and ruminating about being discharged today and her ex- coming and picking her up. She was irritable and rude (which is unlike her) parkinsonian tremors (appear to be less pronounced) She reported that her mood is very happy, and she looked elevated/expansive in her affect, denied thoughts of suicide, denied thoughts of violence or homicide, Rajani seemed less distracted by her auditory hallucinations Assessment: Shae is a 63-year-old white female with history of schizoaffective disorder returns approximately 3 weeks after her discharge from the inpatient unit because of what seems to be more delusional than usual and some thought disorder. Rajani continues to have grandiose delusions but no significant thought disorder Today , she seemed to have worsened regarding her irritability and got agitated Diagnoses: Schizoaffective Disorder, bipolar type Tardive dyskinesia of the oral facial muscles Parkinson's disease Treatment Plan update: Continue Zyprexa 20 mg at bedtime Atorvastatin Calcium 40 MG Benzocaine/Menthol 1 MARIA GUADALUPE Q4 HRS NEEDED PRN Levothyroxine Sodium 0.125 MG DAILY AC Lorazepam 0.5 MG Q4 HRS NEEDED PRN
[2018-04-05 15:55] VITALS: BP 124/89
[2018-04-05 19:51] VITALS: BP 133/70
[2018-04-06 07:56] VITALS: BP 120/73
[2018-04-06 12:33] VITALS: BP 132/81
[2018-04-06 15:56] VITALS: BP 123/84
[2018-04-06 19:35] VITALS: BP 124/74
--- NOTE | 2018-04-06 22:09 | CP SOUTH PROGRESS NOTE PSYCH ---
Psych (Inpt) Progress Note Progress Note Chief Complaint Discussed overnight events with RN and staff. As per RN report, the patient was waking up several times during the maintenance technician 2nd shift , she was observed masturbating in her room loudly. She received one dose of Ativan 1 mg PRN and one dose of Tylenol for restless leg pain at 04:11 am. However, no restrains required in the last 24hrs. I saw the patient this morning with the treatment team. She reported feeling good although she continues to have irritability at times, grandiosity and elated mood at times. She appeared distracted and RTIS. She is inappropriate at times. She denies suicidal/homicidal thoughts/intent/plans at present. She is isolative and withdrawn, minimally interacting with peers. She has adequate appetite and sleep. She is compliant to medications, no side effects reported and none in evidence. Vitals reviewed Vital Signs Result Date Time B/P 124/74 04/06 1935 Temp 99.1 04/06 1935 Pulse 91 04/06 1935 Pulse Ox 98 03/29 1338 O2 Delivery Room Air 03/29 1338 Resp 18 03/29 1338 O2 Flow Rate Room Air 03/29 0928 Mental Status Examination Consciousness: Awake, alert Orientation: A&O x3, oriented to person, place, year, not to situation Appearance: appears stated age, dressed in casual attire, poor hygiene Behavior: calm and cooperative Attitude: guarded Eye Contact: staring at times Speech: articulate, fluent but need prompting at times Mood: fine Affect: mood-congruent, constricted to euphoric with full emotional reactivity Thought Process: organized Thought Content: delusional, euphoric, hypersexual, irritable at times, denies suicidal/homicidal ideations at the time of the interview, no delusions elicited /verbalized at present Perceptions: appears responding to internal stimuli, reported auditory hallucinations Attention: distractible Memory: grossly intact Insight: limited Judgment: limited Slight psychomotor excitability noted Motor: no abnormal movements, Gait WNL Neuro: grossly intact Independent in ADL's and iADL's Labs Reviewed as documented in chart. Allergy Reviewed as documented in chart. Medications Reviewed as documented in chart. Current Medications Sig/Rolando Start time Last Medication Dose Route Stop Time Status Admin Acetaminophen 650 MG .STK-MED ONE 04/06 410 DC PO 06/30 0411 Acetaminophen 650 MG Q4P PRN 03/29 1500 AC 04/06 PO 0411 Al Hydroxide/Mg 30 ML Q4-6 PRN PRN 03/29 1500 AC Hydroxide PO Aspirin Buffered 81 MG DAILY 03/30 0900 AC 04/06 PO 0744 Atorvastatin Calcium 40 MG 1700 03/29 1700 AC 04/05 PO 1737 Calcium/Vitamin D 250 MG DAILY 03/30 0934 AC 04/06 PO 0744 Levothyroxine Sodium 0.125 MG DAILY AC 03/30 0932 AC 04/02 PO 0707 Lorazepam 1 MG Q4 HRS NEEDED PRN 04/05 1145 AC 04/06 PO 0411 Metformin HCl 500 MG 0800,1700 03/29 1700 AC 04/06 PO 1700 Multivitamins 1 TAB DAILY 03/30 0933 AC 04/06 PO 0744 Olanzapine 20 MG AT BEDTIME 04/02 2100 AC 04/06 PO 2038 Assessment Rajani is a 63-year-old white female with history of schizoaffective disorder, bipolar type she continues to require further stabilization at this point. Diagnosis Schizoaffective Disorder, bipolar type Tardive dyskinesia of the oral facial muscles Parkinson's disease DM Hyperlipidemia Hypothyroidism Treatment Plan Continue current medication regimen A1C and Lipid profile ordered for Sunday morning
[2018-04-07 07:46] VITALS: BP 133/70
[2018-04-07 12:01] VITALS: BP 141/78
[2018-04-07 15:45] VITALS: BP 142/77
--- NOTE | 2018-04-07 18:06 | CP SOUTH PROGRESS NOTE PSYCH ---
Psych (Inpt) Progress Note Progress Note Chief Complaint Discussed overnight events with RN and staff. no restrains required in the last 24hrs. As per RN report, the patient appeared to be sleeping well I saw the patient this morning with the treatment team. She reported feeling well and good stated god is talking to me, he is asking me to change the world talking to self at times. However, denies SI/HI. She has adequate appetite and sleep. She is compliant to medications. She is attending groups and interacting with peers. No safety concerns. Vitals reviewed Vital Signs Result Date Time B/P 142/77 04/07 1545 Pulse 82 04/07 1545 Temp 98.0 04/07 0746 Pulse Ox 98 03/29 1338 O2 Delivery Room Air 03/29 1338 Resp 18 03/29 1338 O2 Flow Rate Room Air 03/29 0928 Mental Status Examination Consciousness: Awake, alert Orientation: A&O x3, oriented to person, place, year, not to situation Appearance: appears stated age, dressed in casual attire, poor hygiene Behavior: calm and cooperative Attitude: open and engaged Eye Contact: staring at times Speech: articulate, fluent, talkative with normal rate Mood: good Affect: mood-congruent, euphoric with full reactivity Thought Process: disorganized Thought Content: delusional god is talking to me, paranoid they are coming from the TV after me, euphoric, but denies suicidal/homicidal ideations at the time of the interview Perceptions: appears responding to internal stimuli, reported auditory hallucinations god is talking to me Attention: distractible Memory: grossly intact Insight: limited Judgment: limited Slight psychomotor excitability noted Motor: no abnormal movements, Gait WNL Neuro: grossly intact Independent in ADL's and iADL's Labs Reviewed as documented in chart. Allergy Reviewed as documented in chart. Medications Reviewed as documented in chart. Current Medications Sig/Rolando Start time Last Medication Dose Route Stop Time Status Admin Acetaminophen 650 MG Q4P PRN 03/29 1500 AC 04/06 PO 0411 Al Hydroxide/Mg 30 ML Q4-6 PRN PRN 03/29 1500 AC Hydroxide PO Aspirin Buffered 81 MG DAILY 03/30 0900 AC 04/07 PO 1030 Atorvastatin Calcium 40 MG 1700 03/29 1700 AC 04/07 PO 1707 Calcium/Vitamin D 250 MG DAILY 03/30 0934 AC 04/07 PO 1029 Levothyroxine Sodium 0.125 MG DAILY AC 03/30 0932 AC 04/02 PO 0707 Lorazepam 1 MG Q4 HRS NEEDED PRN 04/05 1145 AC 04/06 PO 0411 Metformin HCl 500 MG 0800,1700 03/29 1700 AC 04/07 PO 170 Multivitamins 1 TAB DAILY 03/30 0933 AC 04/07 PO 103 Olanzapine 20 MG AT BEDTIME 04/02 2100 AC 04/06 PO 2038 Assessment Rajani is a 63-year-old white female with history of schizoaffective disorder, bipolar type she continues to require further stabilization at this point. Diagnosis Schizoaffective Disorder, bipolar type Tardive dyskinesia of the oral facial muscles Parkinson's disease DM Hyperlipidemia Hypothyroidism Treatment Plan Continue current medication regimen
[2018-04-07 20:14] VITALS: BP 138/79
[2018-04-08 08:13] VITALS: BP 139/86
[2018-04-08 12:07] VITALS: BP 130/73
--- NOTE | 2018-04-08 14:51 | CP SOUTH PROGRESS NOTE PSYCH ---
Psych (Inpt) Progress Note Progress Note Mental Status Examination: Rajani was alert and oriented to time, place, and person. hypersexual/grandiose delusions are unchanged, calm nor cooperative She reported that her mood is very happy, and she looked elevated/expansive in her affect, denied thoughts of suicide, denied thoughts of violence or homicide, Rajani reports multiple auditory hallucinations Diagnoses: Schizoaffective Disorder, bipolar type Tardive dyskinesia of the oral facial muscles Parkinson's disease Treatment Plan update: Increase Zyprexa to 25 mg at bedtime Lorazepam 0.5 MG Q4 HRS NEEDED PRN Diagnoses: Schizoaffective Disorder, bipolar type Tardive dyskinesia of the oral facial muscles Parkinson's disease Treatment Plan update: Continue Zyprexa 20 mg at bedtime Atorvastatin Calcium 40 MG Benzocaine/Menthol 1 MARIA GUADALUPE Q4 HRS NEEDED PRN Levothyroxine Sodium 0.125 MG DAILY AC Lorazepam 0.5 MG Q4 HRS NEEDED PRN
[2018-04-08 15:38] VITALS: BP 143/79
--- NOTE | 2018-04-08 16:26 | SOCIAL WORKER PROG NOTE PSYCH ---
Social Work Progress Note Progress Note Rajani attended groups today. I told her that after discussion with the team we feel she needs a longer hospitalization due to not having a stable d/c plan and continued symptoms. She said she didn't feel quite ready to leave yet either and was willing to sign in voluntarily to the unit vs. having a commitment hearing. She said she is trying not to "talk" about all the quaker stuff that she had been and she is trying to work on toning things down. I told her I want her to talk to people, but it needs to be appropriate and not sexual in nature. She proceeded to laugh and giggle and tell me that she couldn't wait to go to her house. She continues to say she has a limo with a fuel truck driver. She signed the voluntary form. Called and cancelled her Care intake scheduled for tomorrow.
[2018-04-08 19:45] VITALS: BP 117/65
[2018-04-09 07:42] VITALS: BP 135/76
--- NOTE | 2018-04-09 08:58 | CP SOUTH PROGRESS NOTE PSYCH ---
Psych (Inpt) Progress Note Progress Note Vital Signs Date Time Temp Pulse B/P 04/09 0742 98.1 92 135/76 04/08 1945 98.4 98 117/65 04/08 1538 92 143/79 Mental Status Examination: Rajani remains grandiose but less hypersexual today (04/09/2018) calm, cooperative, reported that her mood is very happy she looked elevated/expansive in her affect, denied thoughts of suicide, denied thoughts of violence or homicide, Rajani reports multiple auditory hallucinations Diagnoses: Schizoaffective Disorder, bipolar type Tardive dyskinesia of the oral facial muscles Parkinson's disease Treatment Plan update: Continue Zyprexa 25 mg at bedtime Lorazepam was changed yesterday to 1 mg Q4 HRS NEEDED PRN manic behaviors or symptoms including insomnia Lorazepam 0.5 mg Q4 HRS NEEDED PRN anxiety
[2018-04-09 12:07] VITALS: BP 140/85
--- NOTE | 2018-04-09 13:11 | SOCIAL WORKER PROG NOTE PSYCH ---
Social Work Progress Note Progress Note Rajani said she was feeling great. She is very preoccupied with God right now and thinking that God has given her special cobian to help others. She stated "I'm helping the world." She went on to talk about all the wonderful things that God has done, particularly giving people "lips to kiss with." I tried to talk with Rajani about coming up with an alternative d/c plan other than living with Fernandez, but she refused stating she has a mansion/ home to go to. I told her we were not in agreement for that to be the discharge plan. She told me to go ahead and file for a hearing then and we will let the rn plastic surgery decide.
[2018-04-09 15:49] VITALS: BP 141/72
[2018-04-09 20:06] VITALS: BP 118/51
[2018-04-10 07:50] VITALS: BP 115/57
[2018-04-10 11:54] VITALS: BP 118/62
--- NOTE | 2018-04-10 12:31 | CP SOUTH PROGRESS NOTE PSYCH ---
Psych (Inpt) Progress Note Progress Note Include the following elements, when applicable: Involvement in the active treatment of the patient with behavioral observations of the patient and the patient's response to the treatment. Review of the ongoing treatment process in the context of the treatment plan. Indication of how multi-disciplinary staff members are carrying out the treatment plan. Plans for future interventions and recommendations for revision of the treatment plan. Liaison with other physicians/providers. Progress Note: Pleasant, giddy, laughint to herself at times. Stated that she feels safe on the unit but that people are following and Fernandez around referring to people on TV. Continued in a disorganized tangent, but redirectable and able to be interrupted. Stated that she likes the voices because they keep her company and in line, compared to when they were threatening in the past. Laughed about her relationship with Adams and stated that he nor anyone else has been coming to visit her. Somewhat labile and more down when discussing this. continues to have episodes of more disorganized, hypersexual behavior on the unit interspersed with some more controlled mental status. MSE: middle aged woman, tardive dyskinesia evident in mouth, pleasant and well related. She makes good eye contact. Her grooming is good. Her speech is regular rate and volume. Her affect is full, reactive, mood is good to euphoric at times. Thinking is somewhat tangential but overall goal directed. Referential thinking about being followed around by people on TV, delusional thinking about her Adams, but not as severely disorganized as she has been/can be. No evidence of hypersexual behavior or statements with me, though she has them regularly. Denies thoughts to harm self or anyone else. States that she hears voices which are pleasant, but not internally preoccupied. Her insight is impaired to severity of her residual symptoms, judgment fair to poor. some impairments in cognition due to severity of her symptoms. A: 63 year old woman with long history of psychotic illness, severe symptoms when decompensated, showing some stabilization. Still referential, disorganized and euphoric, but overall no gross behavioral disturbances and responding to redirection. Continue current plan of care. Main risk surrounds her residual psychosis which is being addressed with medication, groups, therapy and milieu treatment.
[2018-04-10 15:51] VITALS: BP 126/52
[2018-04-10 19:52] VITALS: BP 116/67
[2018-04-11 07:39] VITALS: BP 115/90
--- NOTE | 2018-04-11 07:52 | CP SOUTH PROGRESS NOTE PSYCH ---
Psych (Inpt) Progress Note Progress Note Mental Status Examination: grandiose delusions but calm, cooperative, reported that her mood is very happy she looked elevated/expansive in her affect, denied thoughts of suicide, denied thoughts of violence or homicide, Rajani reports multiple auditory hallucinations Diagnoses: Schizoaffective Disorder, bipolar type Tardive dyskinesia of the oral facial muscles Treatment Plan update: Continue Zyprexa 25 mg at bedtime Lorazepam 1 mg Q4 HRS NEEDED PRN manic behaviors or symptoms including insomnia
--- NOTE | 2018-04-11 11:21 | SOCIAL WORKER PROG NOTE PSYCH ---
Social Work Progress Note Progress Note Rajani continues to present with auditory hallucinations and delusions. She is hearing Fernandez's voice today. She reported that if she didn't eat breakfast he was going to pick her up, but she ate. She then said she's not going to eat lunch so Fernandez would come. I told her she is not being discharged and again reiterated the concerns over having a better living situation. She went on about how her and Fernandez have to be together. She won't allow any referrals to be done. Rajani stated Fernandez visits her here on the unit nightly and that everyone here loves him. She also shared that there are parties that go on at night, but she can't remember the details because she is hypnotized. Rajani was pleading with me to go at the end of the meeting. I told her she could file a 3 day paper to terminate her voluntary status, but either was we were filing for the involuntary commitment hearing. Started the paperwork for involuntary commitment and conservatorship.
[2018-04-11 12:05] VITALS: BP 141/78
[2018-04-11 15:47] VITALS: BP 135/66
[2018-04-11 19:53] VITALS: BP 130/73
[2018-04-12 07:49] VITALS: BP 133/79
--- NOTE | 2018-04-12 10:25 | SOCIAL WORKER PROG NOTE PSYCH ---
See Addendum Social Work Progress Note Progress Note Involuntary Commitment paperwork was submitted to the [place] [address] this morning. Rajani was in bed at 10am. We talked in her room. She said she had a bad dream that Fernandez and Jody were together. She got upset over this and apparently required an Ativan PRN that was causing her to feel drowsy. As we talked she was opening and closing her eyes. I asked her again if she would think about pursuing housing through [facility]'s respite program? She said "no thank you." I told Rajani that the paperwork for the court hearing was submitted. She asked about the date. I told her there was no date determined yet and that I would let her know. I also told her that we are filing again for conservatorship. She asked what role that person would play? I told her that person would make medical decisions and decisions around housing and finances. She worried that person may steal her money. She asked if she would stay here at [facility] until she goes somewhere else. I told her that was the plan.
--- NOTE | 2018-04-12 10:51 | CP SOUTH PROGRESS NOTE PSYCH ---
Psych (Inpt) Progress Note Progress Note Vital Signs Date Time Temp Pulse B/P B/P Pulse O2 FiO2 04/12 1205 108 106/74 04/12 0749 97.9 90 133/79 04/11 1953 97.5 88 130/73 04/11 1547 83 135/66 Mental Status Examination: Rajani reports multiple auditory hallucinations & grandiose delusions calm, cooperative, reported that her mood is very happy and looked elevated/expansive in her affect , denied thoughts of suicide, denied thoughts of violence or homicide Diagnoses: Schizoaffective Disorder, bipolar type Tardive dyskinesia of the oral facial muscles Treatment Plan update: Continue Zyprexa 25 mg at bedtime Lorazepam 1 mg Q4 HRS NEEDED PRN manic behaviors or symptoms including insomnia
[2018-04-12 12:05] VITALS: BP 106/74
[2018-04-12 15:48] VITALS: BP 134/75
[2018-04-12 19:37] VITALS: BP 120/69
[2018-04-13 07:54] VITALS: BP 141/82
--- NOTE | 2018-04-13 08:32 | CP SOUTH PROGRESS NOTE PSYCH ---
Psych (Inpt) Progress Note Progress Note Vital Signs Date Time Temp Pulse B/P B/P O2 FiO2 04/13 0754 97.1 96 141/82 04/12 1937 97.8 104 120/69 04/12 1548 89 134/75 04/12 1205 108 106/74 Mental Status Examination: Rajani does not seem to be much different than in the previous few days. She continues to be in an elevated mood and seems to enjoy multiple grandiose delusions Reports less auditory hallucinations & she was calm, cooperative, reported that her mood is very happy and looked elevated/expansive in her affect , denied thoughts of suicide, denied thoughts of violence or homicide Diagnoses: Schizoaffective Disorder, bipolar type Tardive dyskinesia of the oral facial muscles Treatment Plan update: Continue Zyprexa 25 mg at bedtime Lorazepam 1 mg Q4 HRS NEEDED PRN manic behaviors or symptoms including insomnia
[2018-04-13 12:04] VITALS: BP 133/78
[2018-04-13 16:20] VITALS: BP 134/88
[2018-04-13 19:11] VITALS: BP 132/78
[2018-04-14 08:11] VITALS: BP 127/72
--- NOTE | 2018-04-14 08:19 | CP SOUTH PROGRESS NOTE PSYCH ---
Psych (Inpt) Progress Note Progress Note Vital Signs Date Time Temp Pulse Resp B/P B/P Pulse O2 O2 Flow FiO2 04/14 0811 97.7 88 127/72 04/13 1911 97.6 95 132/78 04/13 1620 92 134/88 Mental Status Examination: Rajani refused Zyprexa last night "I don't need it" does not seem to be much different than in the previous few days. continues to be in an elevated mood multiple grandiose delusions Reports less auditory hallucinations & she was calm, cooperative, reported that her mood is very happy and looked elevated/expansive denied thoughts of suicide, denied thoughts of violence or homicide Diagnoses: Schizoaffective Disorder, bipolar type Tardive dyskinesia of the oral facial muscles Treatment Plan update: Continue the same medications pt. strongly encouraged to adhere to the medication recommendations
[2018-04-14 12:23] VITALS: BP 118/77
[2018-04-14 16:09] VITALS: BP 120/72
[2018-04-14 19:43] VITALS: BP 114/66
[2018-04-15 07:56] VITALS: BP 110/54
--- NOTE | 2018-04-15 08:52 | CP SOUTH PROGRESS NOTE PSYCH ---
Psych (Inpt) Progress Note Progress Note Vital Signs Date Time Temp Pulse B/P B/P O2 FiO2 04/15 0756 97.9 98 110/54 04/14 1943 98.3 98 114/66 04/14 1609 98 120/72 No new labs in the past 24 hours Mental Status Examination: No evidence of oversedation. Alert and oriented to time, place, and person. Rajani does not seem to be much different than in the previous few days. continues to be in an elevated mood multiple grandiose delusions Reports less auditory hallucinations & she was calm, cooperative, reported that her mood is very happy and looked elevated/expansive denied thoughts of suicide, denied thoughts of violence or homicide Diagnoses: Schizoaffective Disorder, bipolar type Tardive dyskinesia of the oral facial muscles Treatment Plan update: Continue the same medications pt. strongly encouraged to adhere to the medication recommendations
--- NOTE | 2018-04-15 16:22 | SOCIAL WORKER PROG NOTE PSYCH ---
Social Work Progress Note Progress Note Rajani was in bed most of the afternoon. I got her out of bed to meet with the who served her court paperwork for the involuntary commitment hearing. The [employer] Pump Equipment Operator told her he didn't know what it was about. She challenged him and said "yes you do, your blushing." Her and I met after that to talk about how the hearing is to pursue longer hospitalization. She does not feel that is necessary. She stated "people are lining the streets Janet to see Fernandez and I." She went on to say that people are getting ready in the streets to see her and Fernandez leave the hospital and go to [place] together. She then talked about her mansion in [place], her limo, and her roll off driver. I told her these are considered grandiose beliefs. She giggled. She has no insight into her illness right now. She does not believe she needs psychiatric medications. She believes that the Zyprexa prescribed is Acetimeniphen. She wants the hearing moved up and believes the 17th is too far out. I told her that was not in our control and it is what the court has available. "I have to be with Fernandez" is how she responded. Filled out paperwork for conservatorship and petition for consent to psychiatric medication treatment. Will submit to court tomorrow.
[2018-04-15 16:25] VITALS: BP 133/82
[2018-04-15 20:01] VITALS: BP 129/69
[2018-04-16 08:30] VITALS: BP 137/77
--- NOTE | 2018-04-16 08:57 | CP SOUTH PROGRESS NOTE PSYCH ---
Psych (Inpt) Progress Note Progress Note Treatment team (JOSEF RN, Group and Activities Therapist, and psychiatrist) discussed Pt.'s progress, treatment plan, and aftercare plans. Vital Signs Date Time Temp Pulse Resp B/P B/P Pulse O2 O2 Flow FiO2 Mean Ox Delivery Rate 04/16 1610 92 134/71 04/16 1257 88 134/73 04/16 0830 97.2 98 137/77 04/15 2001 97.7 94 129/69 No new labs Mental Status Examination: Ms. Fernandez continues to have grandiose delusions No evidence of oversedation. Alert and oriented to time, place, and person. She continues to be in an elevated mood. Reports less auditory hallucinations & she was calm, cooperative, reported that her mood is very happy and looked elevated/expansive denied thoughts of suicide, denied thoughts of violence or homicide no significant Parkinsonian tremors Diagnoses: Schizoaffective Disorder, bipolar type Much improved Tardive dyskinesia of the oral facial muscles Treatment Plan update: Continue the same medications
[2018-04-16 12:57] VITALS: BP 134/73
--- NOTE | 2018-04-16 13:05 | IP INCIDENTAL NOTE PSYCH ---
Incidental Note Notation: Patient seen for second opinion for medication power for HADOOP ADMINISTRATOR application. 63 yo DWF known to me from her prior tx here. Admitted 03/29/18. Carries dx schizoaffective d/o, bipolar type. Medication list reviewed. Patient seen at 10:54 a.m. Was in group prior to meeting with me in office. Denies having mental illness or need for medication, except for "just vitamins, minerals, [place]." Denies inappropriate conversation except for "just today when I got [facility]." Patient was upset about her perception of how a tech was feeding a patient. She wants to take that peer into her home. Claims to have a limo and a lot of money, worth close to $1 billion. 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 Mood: "I can't get that madness out of my head, how she treated him (peer)." Denies feeling sad. Feels angry. Feels a little anxious about situation with peer. Denies SI, HI, AH, VH and PI. Reports magical cobian: that her brain was programmed to help God. Oriented to person. [facility] [place]. Date: 04/16/18. IMPRESSION: The patient remains manic/psychotic and lacks capacity to understand the need for medication for her condition.
--- NOTE | 2018-04-16 15:00 | SOCIAL WORKER PROG NOTE PSYCH ---
Social Work Progress Note Progress Note Rajani was in her room laying down around 2:30pm. It sounded like she was crying. I asked if she was okay? She said she was sad, because she was leaving today and would miss everyone here. I told her she was not leaving today and asked if she was feeling sad because she is still here? She insisted that Fernandez was picking her up at 4pm today. She told me that her and Fernandez work for God and they are doing "God's work." Her mood brightened as we talked throughout our conversation. She specifically got happy talking about her limo and mansion in [place]. She is not accepting that these are grandiose beliefs. She told me she got in trouble for yelling at a sitter today. She seemed overly involved/ concerned about how another patient was being cared for. We talked about how she could go to nursing with her concerns in the future instead of getting upset with the gravity flow irrigator.
[2018-04-16 16:10] VITALS: BP 134/71
[2018-04-16 20:21] VITALS: BP 115/75
[2018-04-17 07:47] VITALS: BP 110/76
--- NOTE | 2018-04-17 10:56 | SOCIAL WORKER PROG NOTE PSYCH ---
Marybel Laura BAHENA 04/17/18 1055: Social Work Progress Note Progress Note Left a message for Sadia Balbuena ([facility]) to discuss the referral to [facility]. Spoke with Sadia about Rajani's case. She approved the referral to [facility]. The referral was sent. Rajani was in her room. She started talking about orgasms. I told her that was personal information and she really doesn't need to talk about that. She said she had mixed feelings today of feeling happy and sad. Happy because she is leaving, but sad because she will miss everyone here. She was told again that she isn't leaving today. Reminded her of the probate hearing on 04/23. She stated she didn't need a hearing. I told her we filed for a conservator to be appointed and explained the role of that person. She said "Janet you're funny" and then giggled. She said she has a place to go already.
--- NOTE | 2018-04-17 12:31 | SOCIAL WORKER PROG NOTE PSYCH ---
Social Work Progress Note Progress Note Completed [facility] referral. Asked Janet Murry to review prior to faxing.
[2018-04-17 12:39] VITALS: BP 108/72
--- NOTE | 2018-04-17 13:08 | CP SOUTH PROGRESS NOTE PSYCH ---
Psych (Inpt) Progress Note Progress Note Treatment team (JOSEF, RN, Group and Activities Therapist, and psychiatrist) discussed Pt.'s progress, treatment plan, and aftercare plans. Vital Signs Date Time Temp Pulse B/P B/P Pulse O2 FiO2 04/17 1239 91 108/72 04/17 0747 97.0 97 110/76 04/16 2021 97.8 96 115/75 No new labs Mental Status Examination: no significant Parkinsonian tremors The patient continues to have grandiose delusions The patient did not seem over sedated this morning, she reported that there is a new brown hairs growing she thinks it is from God (she reported "my natural hair is brown"). Alert and oriented to time, place, and person. She continues to be in an elevated mood. Reports less auditory hallucinations & she was calm, cooperative, mood is "very happy" and affect was goal congruent as she looked elevated/ expansive denied thoughts of suicide, denied thoughts of violence or homicide Diagnoses: Schizoaffective Disorder, bipolar type Much improved Tardive dyskinesia of the oral facial muscles Treatment Plan update: Will break the dose of Zyprexa to 2 2 doses 10 mg in the morning and 15 at bedtime because she has been suffering with restless legs at night and even leg cramps he said Also make Klonopin regular schedule at bedtime to help with that
[2018-04-17 16:00] VITALS: BP 113/58
[2018-04-17 19:57] VITALS: BP 111/55
--- NOTE | 2018-04-18 07:23 | CP SOUTH PROGRESS NOTE PSYCH ---
Psych (Inpt) Progress Note Progress Note Treatment team (JOSEF, RN, Group and Activities Therapist, and psychiatrist) discussed Pt.'s progress, treatment plan, and aftercare plans. Mental Status and Behaviors: continues to have grandiose delusions Reports less auditory hallucinations The patient did not seem over sedated this morning, Alert and oriented to time, place, and person. She continues to be in an elevated mood. & she was calm, cooperative, mood is "very happy" and affect was goal congruent as she looked elevated/ expansive denied thoughts of suicide, denied thoughts of violence or homicide Treatment Plan update: Continue Zyprexa 10 mg in the morning and 15 at bedtime because Continue Klonopin 1 mg at bedtime Clonazepam 0.5 MG Q6-PRN PRN Diagnoses: Schizoaffective Disorder, bipolar type Much improved Tardive dyskinesia of the oral facial muscles Treatment Plan update: Will break the dose of Zyprexa to 2 2 doses 10 mg in the morning and 15 at bedtime because she has been suffering with restless legs at night and even leg cramps he said Also make Klonopin regular schedule at bedtime to help with that
[2018-04-18 07:41] VITALS: BP 138/80
[2018-04-18 12:07] VITALS: BP 135/53
[2018-04-18 16:08] VITALS: BP 109/61
--- NOTE | 2018-04-18 16:49 | SOCIAL WORKER PROG NOTE PSYCH ---
Social Work Progress Note Progress Note Rajani was laying in bed. She shared that Dr. Lugo told her she isn't going home today. I told her that was correct and that we are having the hearing on and the mingle operator will decide. She talked about feeling sad last night and more so today. She was religiously preoccupied with God and talked about God being angry about things. She continues to focus on people are other people and how they are mistreating God's resources. Encouraged her to get socks on her feet so she didn't hurt her feet. Reminded her that she should take care of her feet especially because she is Diabetic. She denied being a Diabetic.
[2018-04-18 19:55] VITALS: BP 134/53
--- NOTE | 2018-04-19 07:44 | CP SOUTH PROGRESS NOTE PSYCH ---
Psych (Inpt) Progress Note Progress Note Treatment team (JOSEF, RN, Group and Activities Therapist, and psychiatrist) discussed the pt.'s progress, treatment plan, and aftercare plans. Vital Signs Date Time Temp Pulse B/P B/P 04/19 0751 97.6 97 136/70 04/18 1955 98.3 98 134/53 Mental Status and Behaviors: continues to have grandiose delusions about being on TV with Fernandez, we have 3 choices: stay on air, go off the air, .... or stay on air but take the bedroom off the air Reports less auditory hallucinations, Alert and oriented to time, place, and person. continues to be in an elevated mood. & she was calm, cooperative, mood is "very happy" and affect was gelevated/expansive denied thoughts of suicide, denied thoughts of violence or homicide Treatment Plan Update: Continue Zyprexa 10 mg in AM and 15 mg QHS Continue Klonopin 1 mg at bedtime Continue Clonazepam 0.5 mg Q6-PRN
[2018-04-19 07:51] VITALS: BP 136/70
[2018-04-19 12:09] VITALS: BP 130/72
--- NOTE | 2018-04-19 13:56 | SOCIAL WORKER PROG NOTE PSYCH ---
Social Work Progress Note Progress Note Rajani was in bed this afternoon. She shared that she really has something she needs to discuss with the bhavana and was hoping we would approve a visit. She didn't elude to what it was. She was reminded that she needs to be appropriate with her behavior and conversations with the bhavana. She then told me that this morning she was loud and interrupting so she was directed by nursing to take her medication. She has been laying down due to feeling tired. She also felt that she ate too much for lunch. She told me that on Sunday and Fernandez need to decide whether or not they are keeping their lives on TV. She believes that her life has been filmed and it is continuing to be filmed while here in the hospital. She encouraged me to wave to the camera, which I refrained from doing. Talked to the nursing staff about Rajani being permitted for a brief time limited visit with the bhavana.
[2018-04-19 15:54] VITALS: BP 134/70
[2018-04-19 20:34] VITALS: BP 115/65
[2018-04-20 08:05] VITALS: BP 126/69
--- NOTE | 2018-04-20 11:24 | CP SOUTH PROGRESS NOTE PSYCH ---
Psych (Inpt) Progress Note Progress Note Include the following elements, when applicable: Involvement in the active treatment of the patient with behavioral observations of the patient and the patient's response to the treatment. Review of the ongoing treatment process in the context of the treatment plan. Indication of how multi-disciplinary staff members are carrying out the treatment plan. Plans for future interventions and recommendations for revision of the treatment plan. Liaison with other physicians/providers. Progress Note: Pt notes that she is "doing really well!" She spoke at length about recently ( moments before) speaking with her love, "Fernandez" (estranged ex-), in the room. She recounted thier relationship at length. Feels that "everything is beautiful." Slept well overnight. She feels that she has been doing better as she "doesn't but in as much." Denies SI or HI. Current Medications Sig/Rolando Start time Last Medication Dose Route Stop Time Status Admin Acetaminophen 650 MG Q4P PRN 03/29 1500 AC 04/16 PO 2336 Al Hydroxide/Mg 30 ML Q4-6 PRN PRN 03/29 1500 AC 04/16 Hydroxide PO 0017 Aspirin Buffered 81 MG DAILY 03/30 0900 AC 04/20 PO 0932 Atorvastatin Calcium 40 MG 03/29 1700 AC 04/19 PO 1712 Calcium/Vitamin D 250 MG DAILY 03/30 0934 AC 04/20 PO 0932 Clonazepam 1 MG AT BEDTIME 04/17 2100 AC 04/19 PO 04/24 2059 2303 Clonazepam 0.5 MG Q6-PRN PRN 04/15 1315 AC 04/16 PO 04/22 1314 2005 Levothyroxine Sodium 0.125 MG DAILY AC 03/30 0932 AC 04/20 PO 0640 Magnesium Hydroxide 30 ML AT BEDTIME PRN 07/ 0800 AC 04/19 PO 0612 Metformin HCl 500 MG 0800,1700 03/29 1700 AC 04/20 PO 0932 Multivitamins 1 TAB DAILY 03/30 0933 AC 04/20 PO 0932 Olanzapine 10 MG 0800 04/18 0800 AC 04/20 PO 0932 Olanzapine 15 MG AT BEDTIME 04/17 2100 AC 04/19 PO 2303 Vital Signs Date Time Temp Pulse Resp B/P B/P Pulse O2 O2 Flow FiO2 Mean Ox Delivery Rate 04/20 805 97.7 85 126/69 04/19 2034 98.4 98 115/65 04/19 1554 97 134/70 04/19 1209 98 130/72 MSE Appearance: as stated age Speech : nl rate, rhythm, volume and prosody Behavior: cooperative Motor: no psychomotor agitation or retardation Mood : doing really well Affect : + labile, elevated, inappropriate, constricted Thought process: tangential at best Thought content : ++ delusions, no paranoia noted Perceptions: denied AVHs, denied SI or HI Insight: poor Judgment: poor A/P: Pt with schizoaffective disorder, bipolar disorder with continued psychotic and mood sx overall though improved per staff and pt report. Continue current medication regimen Encourage integration into the milieu
[2018-04-20 12:30] VITALS: BP 126/77
[2018-04-20 16:02] VITALS: BP 132/68
[2018-04-20 19:57] VITALS: BP 115/79
[2018-04-21 07:45] VITALS: BP 140/84
--- NOTE | 2018-04-21 11:03 | CP SOUTH PROGRESS NOTE PSYCH ---
Psych (Inpt) Progress Note Progress Note Include the following elements, when applicable: Involvement in the active treatment of the patient with behavioral observations of the patient and the patient's response to the treatment. Review of the ongoing treatment process in the context of the treatment plan. Indication of how multi-disciplinary staff members are carrying out the treatment plan. Plans for future interventions and recommendations for revision of the treatment plan. Liaison with other physicians/providers. Progress Note: Pt spoke at length about the blankets and asked several times to be tucked in. Denies SI or HI. Extremely tangential and not redirectable. Current Medications Sig/Rolando Start time Last Medication Dose Route Stop Time Status Admin Acetaminophen 650 MG Q4P PRN 03/29 1500 AC 04/16 PO 2336 Al Hydroxide/Mg 30 ML Q4-6 PRN PRN 03/29 1500 AC 04/16 Hydroxide PO 0017 Aspirin Buffered 81 MG DAILY 03/30 0900 AC 04/21 PO 0747 Atorvastatin Calcium 40 MG 03/29 1700 AC 04/20 PO 1706 Calcium/Vitamin D 250 MG DAILY 03/30 0934 AC 04/21 PO 0747 Clonazepam 1 MG AT BEDTIME 04/17 2100 AC 04/20 PO 04/24 2059 2126 Clonazepam 0.5 MG Q6-PRN PRN 04/15 1315 AC 04/21 PO 04/22 1314 1055 Levothyroxine Sodium 0.125 MG DAILY AC 03/30 0932 AC 04/21 PO 0648 Magnesium Hydroxide 30 ML AT BEDTIME PRN 07 0800 AC 04/19 PO 0612 Metformin HCl 500 MG 0800,03/29 1700 AC 04/21 PO 0747 Multivitamins 1 TAB DAILY 03/30 0933 AC 04/21 PO 0747 Olanzapine 10 MG 0800 04/18 0800 AC 04/21 PO 0747 Olanzapine 15 MG AT BEDTIME 04/17 2100 AC 04/20 PO 2126 Vital Signs Date Time Temp Pulse Resp B/P B/P Pulse O2 O2 Flow FiO2 Mean Ox Delivery Rate 04/21 745 97.6 91 140/84 04/20 1957 98.2 98 115/79 04/20 1602 92 132/68 04/20 1230 82 126/77 MSE Appearance: as stated age Speech : nl rate, rhythm, volume and prosody Behavior: cooperative Motor: no psychomotor agitation or retardation Mood : pull my blanket, please Affect : + labile, elevated, inappropriate, constricted Thought process: tangential at best Thought content : ++ delusions, no paranoia noted Perceptions: denied AVHs, denied SI or HI Insight: poor Judgment: poor A/P: Pt with schizoaffective disorder, bipolar disorder with continued psychotic and mood sx overall though improved per staff and pt report. Continue current medication regimen Encourage integration into the milieu
[2018-04-21 12:15] VITALS: BP 139/81
[2018-04-21 15:26] VITALS: BP 129/61
[2018-04-21 20:04] VITALS: BP 134/70
[2018-04-22 07:36] VITALS: BP 116/78
--- NOTE | 2018-04-22 08:10 | CP SOUTH PROGRESS NOTE PSYCH ---
Psych (Inpt) Progress Note Progress Note I reviewed Dr. Shi's notes for Sun and April 20 and 2017 Treatment team (JOSEF, RN, Group and Activities Therapist, and psychiatrist) discussed the pt.'s progress, treatment plan, and aftercare plans. Mental Status and Behaviors: continues to have grandiose delusions and auditory hallucinations, Alert and oriented to time, place, and person. continues to be in an elevated mood. & she was calm, cooperative, denied feeling depressed, elevated/expansive affect, denied thoughts of suicide, denied thoughts of violence or homicide Treatment Plan Update: Continue Zyprexa 10 mg in AM and 15 mg QHS Continue Klonopin 1 mg at bedtime Continue Clonazepam 0.5 mg Q6-PRN Continue Clonazepam 0.5 mg Q6-PRN
--- NOTE | 2018-04-22 10:55 | SOCIAL WORKER PROG NOTE PSYCH ---
Social Work Progress Note Progress Note Rajani was in her room sleeping this morning. She woke to talk. She reports she hasn't spoken with Fernandez in 2 days, but he is coming here tomorrow at 10am to pick her up. Reminded her of the hearing tomorrow at 2:45. She said "no it has to be 10am." I told her that the court picks the time and it can't change. She was more irritated and getting angry. She was making verbal threats in regard to "keeping her here" and that God is going to punish us and make us sick. I emphathized that she was feeling angry. She stated "you told me I could go." I reiterated that I have never told her she was discharging and that I have voiced my concerns about her d/c plan from the beginning of this admission.
[2018-04-22 12:27] VITALS: BP 131/70
[2018-04-22 16:12] VITALS: BP 133/82
[2018-04-22 20:20] VITALS: BP 137/74
[2018-04-23 07:37] VITALS: BP 122/76
[2018-04-23 12:24] VITALS: BP 131/71
--- NOTE | 2018-04-23 13:37 | CP SOUTH PROGRESS NOTE PSYCH ---
Psych (Inpt) Progress Note Progress Note Treatment team (JOSEF, RN, Group and Activities Therapist, and psychiatrist) discussed the pt.'s progress, treatment plan, and aftercare plans. Mental Status and Behaviors: continues to voice grandiose delusions, auditory hallucinations, and impaired judgement She is alert and oriented to time, place, and person. She continues to be in an elevated mood. & she was calm, cooperative, denied feeling depressed, elevated/expansive affect, denied thoughts of suicide, denied thoughts of violence or homicide Treatment Plan Update: Continue Zyprexa 10 mg in AM and 15 mg QHS Continue Klonopin 1 mg at bedtime Continue Clonazepam 0.5 mg Q6-PRN anxiety or agitation/insomnia
--- NOTE | 2018-04-23 15:30 | SOCIAL WORKER PROG NOTE PSYCH ---
Social Work Progress Note Progress Note Rajani shared that she talked to her Rod Placer (Roby) and she is willing to stay here a couple of more weeks and then she will discharge to her mansion with Fernandez. I told Rajani that is not the d/c plan that we feel is appropriate and that we would discuss it at the hearing. Dr. Lugo testified at the hearing as to why Rajani needs commitment to a state facility. Rajani spoke on her behalf. She presented as delusional and disorganized. The Aluminum Pool Installer granted involuntary commitment to a state facility. Rajani asked if she could remain at [facility]? Rajani was told that she is being referred to [facility], but she will wait here. She was pleased with that and said she likes being at [facility]. Conservatorship hearing is scheduled for 05/07 at 10:30am here at [facility].
[2018-04-23 16:19] VITALS: BP 134/74
[2018-04-23 20:09] VITALS: BP 131/70
[2018-04-24 08:15] VITALS: BP 137/78
--- NOTE | 2018-04-24 09:12 | CP SOUTH PROGRESS NOTE PSYCH ---
Psych (Inpt) Progress Note Progress Note Treatment team (JOSEF, RN, Group and Activities Therapist, and psychiatrist) discussed the pt.'s progress, treatment plan, and aftercare plans. Vital Signs Date Time Temp Pulse Resp B/P B/P Pulse O2 O2 Flow FiO2 04/24 1150 92 128/80 04/24 0815 98.6 96 137/78 04/23 2009 97.8 94 131/70 04/23 1619 96 134/74 Mental Status and Behaviors: Rajani was committed involuntarily to a state facility yesterday and probate Court hearing She took it rather well continues to voice grandiose delusions, auditory hallucinations, She is alert and oriented to time, place, and person. She continues to be in an elevated mood. & she was calm, cooperative, denied feeling depressed, elevated/expansive affect, denied thoughts of suicide, denied thoughts of violence or homicide Treatment Plan Update: Continue Zyprexa 10 mg in AM and 15 mg QHS Continue Klonopin 1 mg at bedtime Continue Clonazepam 0.5 mg Q6-PRN anxiety or agitation/insomnia
[2018-04-24 11:50] VITALS: BP 128/80
[2018-04-24 16:10] VITALS: BP 125/69
--- NOTE | 2018-04-24 17:36 | SOCIAL WORKER PROG NOTE PSYCH ---
Social Work Progress Note Progress Note Received a message that Rajani's conservator if assigned would be Ashlee Snell. Received a call from Rajani's Sister Erma. I gave her an update on the hearing yesterday and what the plan is. She apologized for not being able to be as active in Rajani's tx as she would like, but she is frustrated with the years she has tried helping Rajani and doesn't have that time and energy anymore. She would be happy to connect with the conservator once assigned. I told her when the hearing would be. I was not able to meet with Rajani face to face today.
[2018-04-24 20:37] VITALS: BP 124/66
[2018-04-25 07:48] VITALS: BP 130/67
--- NOTE | 2018-04-25 11:49 | SOCIAL WORKER PROG NOTE PSYCH ---
Social Work Progress Note Progress Note Rajani was served the paperwork around the [employer] hearing today. I saw her in her room a short while later. She wanted to comment on the java support engineer's colgone and how good he smelled. I asked if she had any questions about the hearing? She asked what the role of the conservator would be? I explained it was to help make financial decisions and medical decisions. I told her the date of the hearing. She was disappointed that it was the . She seems to think that she would be able to d/c after that. I told her that the plan is to go to [facility]. She continues to talk about her delusions of money and how she has a tons of it. She wants to give it away to various people and charities. I told her she has a good heart. She continues to talk about how her and Fernandez were sent by God and that she is receiving messages from God about things she has to help with. 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 Called [place] [address] [facility] and spoke with Giulia Marsh (ends breakage clerk). Informed her that the [place] hearing is so that Rajani could be put on Clozaril.
[2018-04-25 12:38] VITALS: BP 122/79
--- NOTE | 2018-04-25 13:54 | CP SOUTH PROGRESS NOTE PSYCH ---
Psych (Inpt) Progress Note Progress Note Treatment team (JOSEF, RN, Group and Activities Therapist, and psychiatrist) discussed the pt.'s progress, treatment plan, and aftercare plans. Mental Status and Behaviors: Rajani continues to voice grandiose delusions She has auditory hallucinations, She continues to be in an elevated mood. & she was calm, cooperative, denied feeling depressed, elevated/expansive affect, denied thoughts of suicide, denied thoughts of violence or homicide She is alert and oriented to time, place, and person. Treatment Plan Update: Pt. refused to consider Clozapine, refused to re-consider [place] Reduce Zyprexa to 10 mg BID Start Geodon 40 mg after breakfast Continue Klonopin 1 mg at bedtime Continue Clonazepam 0.5 mg Q6-PRN anxiety or agitation/insomnia
[2018-04-25 15:51] VITALS: BP 122/88
[2018-04-25 19:47] VITALS: BP 139/70
[2018-04-26 07:39] VITALS: BP 140/62
--- NOTE | 2018-04-26 08:24 | CP SOUTH PROGRESS NOTE PSYCH ---
Psych (Inpt) Progress Note Progress Note Treatment team (JOSEF, RN, Group and Activities Therapist, and Psychiatrist) discussed the pt.'s progress, treatment plan, and aftercare plans. Vital Signs Date Time Temp Pulse B/P B/P 04/26 0739 97.1 99 140/62 04/25 1947 98.1 100 139/70 Mental Status: The pt.'s mental state remains the same, she is calm and friendly, she is talkative and pleasant Pt.'s grandiose delusions are about the same, she continues to have non- threatening voices She remains coherent with an occasional tangent Pt. describes her mood as "very happy" & her affect is congruent with that assertion (as she seems elated/elevated and expansive at times) She denied feeling hopeless, denied thoughts of suicide, denied thoughts of violence or homicide She is alert and oriented to time, place, and person. Assessment: Rajani Fernandez is a 63-year-old White Woman who returned to [facility] Inpatient [facility] approximately 3 weeks after her last discharge. Rajani came back in what seemed to be "more delusional than usual" state of mind and some thought disorder Rajani continues to have grandiose delusions but no significant thought disorder and she is in good behavioral control, calm and pleasant. Treatment Plan Update: Pt. refuses to consider Clozapine, [place], or other options because she believes she does not need medications (not even metformin or synthroid) I will start the slow process of trying to cross titrate from Zyprexa to geodon as she is very upset with the weight gain (and she is also diabetic) but had severe parkinsonia and TD with high potency neuroleptics Continue Zyprexa 10 mg BID Continue Geodon 40 mg with breakfast Continue Klonopin 1 mg at bedtime Continue Clonazepam 0.5 mg Q6-PRN anxiety or agitation/insomnia
--- NOTE | 2018-04-26 11:06 | SOCIAL WORKER PROG NOTE PSYCH ---
Social Work Progress Note Progress Note Rajani was in her room resting at 10:30am. Asked her why she was in bed and not going to group? She reported feeling tired. She couldn't tell me is she slept last night. She denied feeling depressed. Expressed how excited she was about speaking with her daughter (Luci) this morning. She then made a delusional comment about how her and Luci have houses next to eachother "like [place] Rajani started talking about her thyroid this morning. Appears to have delusions around that and not having Diabetes. She says staff here are giving her "vitamins." She doesn't need meds for anything else because there is nothing wrong with her. When asked if she would consider Clozaril, she stated she is tired of people asking her that and she doesn't have time to do bloodwork weekly, because her and Fernandez will be traveling all over the world. Encouraged her to get out of bed and be present on the milieu awhile. Called [facility] admissions and asked what the waiting list looks like. I was told that there are about 10 people on the list. They are looking for a clinical update next Sunday.
[2018-04-26 12:12] VITALS: BP 143/84
[2018-04-26 16:16] VITALS: BP 130/75
[2018-04-26 19:44] VITALS: BP 135/71
[2018-04-27 08:08] VITALS: BP 127/76
--- NOTE | 2018-04-27 10:53 | CP SOUTH PROGRESS NOTE PSYCH ---
See Addendum Psych (Inpt) Progress Note Progress Note Pt notes that she is "fine." She spoke at length about "a do not like chemical in my body that are not supposed to be there," when attempted to ascertain the etiology of her resistance to meds. She feels as though she is being unfairly kept at [facility], "because I had a bad day." She feels that being labelled "a mental patient" as biased family, friends, and providers against her. She denies SI or HI. Family may visit tomorrow. Did take meds today. Current Medications Sig/Rolando Start time Last Medication Dose Route Stop Time Status Admin Acetaminophen 650 MG Q4P PRN 03/29 1500 AC 04/26 PO 2353 Al Hydroxide/Mg 30 ML .STK-MED ONE 04/26 1542 DC Hydroxide PO 04/26 1543 Al Hydroxide/Mg 30 ML Q4-6 PRN PRN 03/29 1500 AC 04/26 Hydroxide PO 1543 Aspirin Buffered 81 MG DAILY 03/30 0900 AC 04/27 PO 0811 Atorvastatin Calcium 40 MG 1700 03/29 1700 AC 04/26 PO 1656 Calcium/Vitamin D 250 MG DAILY 03/30 0934 AC 04/27 PO 0811 Clonazepam 1 MG AT BEDTIME 04/17 2100 AC 04/26 PO 05/01 Cyanocobalamin 250 MCG DAILY 04/25 1415 AC 04/27 PO 0811 Levothyroxine Sodium 0.125 MG DAILY AC 03/30 0932 AC 04/27 PO 0631 Magnesium Hydroxide 30 ML AT BEDTIME PRN 04/11 0800 AC 04/23 PO 2206 Metformin HCl 500 MG 0800,1700 03/29 1700 AC 04/27 PO 0811 Multivitamins 1 TAB DAILY 03/30 0933 AC 04/27 PO 0811 Olanzapine 10 MG AT BEDTIME 04/25 2100 AC 04/26 PO 2128 Olanzapine 10 MG 04/18 0800 AC 04/27 PO 0811 Ziprasidone 40 MG 04/26 0900 AC 04/27 PO 0811 Vital Signs Date Time Temp Pulse Resp B/P B/P Pulse O2 O2 Flow FiO2 Mean Ox Delivery Rate 04/27 0808 97.5 90 127/76 04/26 1944 98.5 99 135/71 04/26 1616 100 130/75 04/26 1212 90 143/84 MSE Appearance: as stated age Speech : nl rate, rhythm, volume and prosody Behavior: cooperative Motor: no psychomotor agitation or retardation Mood : fine Affect : very flat, non-labile, irritable, appropriate, constricted Thought process: linear and goal directed Thought content : no delusions or paranoia, ?RTIS Perceptions: denied AVHs, denied SI or HI Insight: poor Judgment: poor A/P:Pt wiht hx of schizophrenia with hx of medication noncompliance with limited compliance while hospitalized. Remains very resistent to meds. Continue current medication regimen Encourage integration into the milieu
--- NOTE | 2018-04-27 10:57 | CP SOUTH PROGRESS NOTE PSYCH ---
Psych (Inpt) Progress Note Progress Note Pt notes that she is good today. Spoke at length about bad dream she had last night in which her love interest, Fernandez, her exhusband, someone else and made her the maid. She then went back to sleep to "dream a new ending" and dreamt that she this man instead. She denies SI or HI. Current Medications Sig/Rolando Start time Last Medication Dose Route Stop Time Status Admin Acetaminophen 650 MG Q4P PRN 03/29 1500 AC 04/26 PO 2353 Al Hydroxide/Mg 30 ML .STK-MED ONE 04/26 1542 DC Hydroxide PO 04/26 1543 Al Hydroxide/Mg 30 ML Q4-6 PRN PRN 03/29 1500 AC 04/26 Hydroxide PO 1543 Aspirin Buffered 81 MG DAILY 03/30 0900 AC 04/27 PO 0811 Atorvastatin Calcium 40 MG 1700 03/29 1700 AC 04/26 PO 1656 Calcium/Vitamin D 250 MG DAILY 03/30 0934 AC 04/27 PO 0811 Clonazepam 1 MG AT BEDTIME 04/17 2100 AC 04/26 PO 05/01 Cyanocobalamin 250 MCG DAILY 04/25 1415 AC 04/27 PO 0811 Levothyroxine Sodium 0.125 MG DAILY AC 03/30 0932 AC 04/27 PO 0631 Magnesium Hydroxide 30 ML AT BEDTIME PRN 04/11 0800 AC 04/23 PO 2206 Metformin HCl 500 MG 0800,1700 03/29 1700 AC 04/27 PO 0811 Multivitamins 1 TAB DAILY 03/30 0933 AC 04/27 PO 0811 Olanzapine 10 MG AT BEDTIME 04/25 2100 AC 04/26 PO 2128 Olanzapine 10 MG 04/18 0800 AC 04/27 PO 0811 Ziprasidone 40 MG 04/26 0900 AC 04/27 PO 0811 Vital Signs Date Time Temp Pulse Resp B/P B/P Pulse O2 O2 Flow FiO2 Mean Ox Delivery Rate 04/27 0808 97.5 90 127/76 04/26 1944 98.5 99 135/71 04/26 1616 100 130/75 04/26 1212 90 143/84 MSE Appearance: as stated age Speech : nl rate, rhythm, volume and prosody Behavior: cooperative Motor: no psychomotor agitation or retardation Mood : good Affect : flat, non-labile, appropriate, constricted Thought process: linear and goal directed Thought content : ++delusion Perceptions: denied AVHs, denied SI or HI Insight: poor Judgment: poor A/P: Pt with hx of schizoaffective disorder with continued psychotic sx though improved from when last seen. Continue current medication regimen Encourage integration into the milieu
[2018-04-27 12:03] VITALS: BP 120/75
[2018-04-27 15:48] VITALS: BP 141/74
[2018-04-27 20:01] VITALS: BP 122/72
[2018-04-28 07:31] VITALS: BP 128/74
--- NOTE | 2018-04-28 12:16 | CP SOUTH PROGRESS NOTE PSYCH ---
Psych (Inpt) Progress Note Progress Note Pt notes that she is "good" today. Feels slept well. Spoke about love for Fernandez. Denies SI or HI. Current Medications Sig/Rolando Start time Last Medication Dose Route Stop Time Status Admin Acetaminophen 650 MG Q4P PRN 03/29 1500 AC 04/28 PO 0053 Al Hydroxide/Mg 30 ML .STK-MED ONE 04/27 2155 DC Hydroxide PO 04/27 2156 Al Hydroxide/Mg 30 ML Q4-6 PRN PRN 03/29 1500 AC 04/27 Hydroxide PO 215 Aspirin Buffered 81 MG DAILY 03/30 0900 AC 04/28 PO 0841 Atorvastatin Calcium 40 MG 1700 03/29 1700 AC 04/27 PO 1748 Calcium/Vitamin D 250 MG DAILY 03/30 0934 AC 04/28 PO 0842 Clonazepam 1 MG AT BEDTIME 04/17 2100 AC 04/27 PO 05/01 2058 215 Cyanocobalamin 250 MCG DAILY 04/25 1415 AC 04/28 PO 0841 Levothyroxine Sodium 0.125 MG DAILY AC 03/30 0932 AC 04/28 PO 0630 Magnesium Hydroxide 30 ML AT BEDTIME PRN 04/11 0800 AC 04/23 PO 2206 Metformin HCl 500 MG 0800,1700 03/29 1700 AC 04/28 PO 0841 Multivitamins 1 TAB DAILY 03/30 0933 AC 04/28 PO 0841 Olanzapine 10 MG AT BEDTIME 04/25 2100 AC 04/27 PO 2156 Olanzapine 10 MG 0800 04/18 0800 AC 04/28 PO 0841 Ziprasidone 40 MG 04/26 0900 AC 04/28 PO 0841 Vital Signs Date Time Temp Pulse Resp B/P B/P Pulse O2 O2 Flow FiO2 Mean Ox Delivery Rate 04/28 731 98.0 104 128/74 04/27 2001 97.1 96 122/72 04/27 1548 96 141/74 MSE Appearance: as stated age Speech : nl rate, rhythm, volume and prosody Behavior: cooperative Motor: no psychomotor agitation or retardation Mood : good, everything is good Affect : flat nut slightly more reactive, non-labile, appropriate, constricted Thought process: linear and goal directed Thought content : ++delusions ?exhusband Perceptions: denied AVHs, denied SI or HI Insight: poor Judgment: poor A/P: Pt with hx of schizoaffective disorder with continued psychotic sx though improved slightly. Continue current medication regimen Encourage integration into the milieu
[2018-04-28 12:24] VITALS: BP 137/77
[2018-04-28 15:38] VITALS: BP 105/64
[2018-04-28 19:42] VITALS: BP 133/69
[2018-04-29 07:50] VITALS: BP 135/67
--- NOTE | 2018-04-29 08:48 | CP SOUTH PROGRESS NOTE PSYCH ---
Psych (Inpt) Progress Note Progress Note I reviewed the notes of Dr. Shi from the weekend of April 27 and 2017. JOSEF, RN, Group and Activities Therapist, and Psychiatrist discussed pt.'s progress, treatment plan, and aftercare plans. Vital Signs Date Time Temp Pulse B/P B/P 04/29 1202 95 135/79 04/29 0750 97.2 89 135/67 04/28 1942 97.7 96 133/69 MSE calm and friendly, talkative and pleasant, grandiose delusions are about the same, she continues to have non-threatening voices She remains coherent with an occasional tangent mood is "very happy" & her affect is elated/elevated and expansive She denied feeling hopeless, denied thoughts of suicide, denied thoughts of violence or homicide She is alert and oriented to time, place, and person. Assessment: Rajani Fernandez is a 63-year-old White Woman who has been at [facility] Inpatient Psych[facility] Unit since 03/29/2018. Rajani continues to have grandiose delusions but no significant thought disorder and she is in good behavioral control, calm and pleasant. Treatment Plan Update: Reduce Zyprexa to 5 mg in AM and 10 mg QHS Increase Geodon to 40 mg with breakfast and with Supper Continue Klonopin 1 mg at bedtime Continue Clonazepam 0.5 mg Q6-PRN anxiety or agitation/insomnia
[2018-04-29 12:02] VITALS: BP 135/79
--- NOTE | 2018-04-29 14:50 | SOCIAL WORKER PROG NOTE PSYCH ---
Social Work Progress Note Progress Note Rajani shared that she spoke with her Sister Erma over the weekend and that they were hoping that a family patent attorney would be her conservator. She believes they only want that because they want all of her money. She doesn't believe that they have her "best interest at heart." Janet stated that the date of the conservator hearing is the day that her and Fernandez first met. She shared memories of that day and her wedding day. Stated that she will be discharged if Fernandez comes and shows paperwork that they have housing.
[2018-04-29 15:54] VITALS: BP 147/59
[2018-04-29 20:06] VITALS: BP 108/65
[2018-04-30 07:33] VITALS: BP 112/77
--- NOTE | 2018-04-30 08:23 | CP SOUTH PROGRESS NOTE PSYCH ---
Psych (Inpt) Progress Note Progress Note E COMMERCE ANALYST, RN, OTR/L, Group and Activities Therapist, and Psychiatrist discussed pt.' s progress, inpatient treatment plan, and aftercare plans. MSE: The pt. was calm and friendly, talkative and pleasant, grandiose delusions are about the same, she continues to have non-threatening voices. She remains coherent with an occasional tangent mood is "very happy" & her affect is elated/elevated and expansive. She denied feeling hopeless, denied thoughts of suicide, denied thoughts of violence or homicide. She is alert and oriented to time, place, and person. Assessment: Rajani Fernandez is a 63-year-old White Woman who has been at [facility] Inpatient Psychiatric Unit since 03/29/2018. Rajani continues to have grandiose delusions but no significant thought disorder and she is in good behavioral control, calm and pleasant. Treatment Plan Update: Continue Zyprexa 5 mg in AM and 10 mg QHS Increase Geodon to 40 mg with breakfast and with Supper Reduce Klonopin to 0.5 mg at bedtime Continue Clonazepam 0.5 mg Q6-PRN anxiety or agitation/insomnia Reduce Zyprexa to 5 mg in AM and 10 mg QHS Increase Geodon to 40 mg with breakfast and with Supper Continue Klonopin 1 mg at bedtime Continue Clonazepam 0.5 mg Q6-PRN anxiety or agitation/insomnia
--- NOTE | 2018-04-30 13:23 | SOCIAL WORKER PROG NOTE PSYCH ---
Social Work Progress Note Progress Note Rajani remains paranoid about her Sister Erma wanting her money. 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 She talked about her and Fernandez traveling the world and helping others. Talked about the [facility] on [facility]/07 and that there will be another hearing to discuss medication. Asked again if she wants to consider a trial of Clozaril? She said there is nothing wrong with her and she doesn't need to be in the hospital or take Clozaril.
--- NOTE | 2018-04-30 13:51 | SOCIAL WORKER PROG NOTE PSYCH ---
Social Work Progress Note Progress Note Faxed update clinical info to [facility] [phone].
[2018-04-30 19:41] VITALS: BP 117/73
[2018-05-01 07:47] VITALS: BP 124/76
--- NOTE | 2018-05-01 08:06 | CP SOUTH PROGRESS NOTE PSYCH ---
Psych (Inpt) Progress Note Progress Note OSS ARCHITECT, RN, OTR/L, Group and Activities Therapist, and Psychiatrist discussed the pt.'s progress, inpatient treatment plan, and aftercare plans. Mental Status Update: Shae was alert, calm, and friendly. She was talkative, pleasant, and grandiose. Her delusions are about the same (she has a lot of money, she has a mansion, she is going to give people cars, etc.). She continues to have non-threatening voices. She remains coherent with an occasional tangent. She described her mood as "very happy". Her affect is elated /elevated and expansive. She denied feeling hopeless, denied feeling worthless and denied thoughts of suicide. Shae denied thoughts of violence or homicide. She is alert and oriented to time, place, and person. Assessment Update: Shae Fernandez is a 63-year-old White Woman who has been at [facility] Inpatient Psych[facility] Unit since 03/29/2018. Although Rajani continues to have grandiose delusions and occasional audio hallucinations. but no significant thought disorder and she is in good behavioral control, calm and pleasant. Treatment Plan Update: Reduce Zyprexa to 10 mg QHS Continue Geodon to 40 mg with breakfast and with Supper Continue other medications unchanged
--- NOTE | 2018-05-01 15:48 | SOCIAL WORKER PROG NOTE PSYCH ---
Social Work Progress Note Progress Note [facility] to 1pm on [facility]/07. Rajani spent alot of time sitting by the [employer] this afternoon. She enjoys watching the fish. She talked about her daughter Luci allowing her to live at her house. I told her that her daughter could call me if that was an option she wanted to discuss. She doesn't think Fernandez is still there. She said he went to [place] and then she giggled and stated "we can't wait to be together." She said she doesn't think she will be here by the time of the hearing and that she doesn't need a conservator. I told her we don't want anyone taking advantage of her kind heartedness and that it was best if someone helped make sure she had all of her needs met. Continues to have poor insight and judgement.
[2018-05-01 19:46] VITALS: BP 97/71
[2018-05-02 07:42] VITALS: BP 130/83
--- NOTE | 2018-05-02 15:09 | CP SOUTH PROGRESS NOTE PSYCH ---
Psych (Inpt) Progress Note Progress Note PAEDIATRIC PHYSIOTHERAPIST, RN, OTR/L, Group and Activities Therapist, and Psychiatrist discussed the pt.'s progress, inpatient treatment plan, and aftercare plans. Vital Signs Date Time Temp Pulse B/P 05/02 0742 97.4 98 130/83 05/01 1946 98.2 96 97/71 Mental Status Update: Shae was alert and oriented to time, place, and person. She was calm, and talkative. She pleasant and grandiose. Her delusions are the same (e.g. she believes she has a lot of money, she has a mansion, she is going to give people cars, etc.). She continues to have non-threatening voices (mostly in the right ear). She remains coherent with an occasional tangent. She described her mood as "very happy". Her affect is elated/elevated and expansive. Shae denied feeling hopeless, denied feeling worthless and denied thoughts of suicide. She denied thoughts of violence or homicide. Assessment Update: Shae Fernandez is a 63-year-old White Woman who has been on the Inpatient Psychiatric Unit since 03/29/2018. Although Shae continues to have grandiose delusions and audio hallucinations, she is coherent and in good behavioral control. She is calm and pleasant and has not voiced any thoughts of suicide or homicide throughout her stay Treatment Plan Update: Zyprexa 10 mg QHS Continue Geodon 40 mg with breakfast and with Supper Continue other medications unchanged
--- NOTE | 2018-05-02 16:11 | SOCIAL WORKER PROG NOTE PSYCH ---
Social Work Progress Note Progress Note I Herb Carrsharon met with Rajani in her room to check in. She appeared to be in good spirits although she was lying down. She did not report having depression today. She was engaged and alert during the conversation. She mentioned that she slept all day and was hearing voices of her and daughter ( one one each side of her) The voices were positive and she stated that she has not experienced the negative voices for a while. She enjoyed focus group this morning even though OT Lucia who run the group was not there. Rajani expressed feeling comfortable on the unit but mentioned that changes make her feel slightly anxious. She mentioned having a concern about her weight and wanting to lose twenty pound. We briefly talked about the benefits of small changes. Rajani told me about her and Fernandez being air and wanting to travel to places she has seen on TV. She enjoys watching iwi here on the unit. She continue to discuss the benefits of meditations and aroma therapy. She enjoys the lavender scent in particular.
[2018-05-02 19:49] VITALS: BP 139/88
[2018-05-03 07:40] VITALS: BP 111/62
--- NOTE | 2018-05-03 09:00 | CP SOUTH PROGRESS NOTE PSYCH ---
Psych (Inpt) Progress Note Progress Note JOSEF, RN, OTR/L, Group and Activities Therapist, and Psychiatrist discussed the pt.'s progress, inpatient treatment plan, and aftercare plans. Vital Signs: Date Time Temp Pulse B/P 05/03 0740 97.8 96 111/62 05/02 1949 98.3 98 139/88 Mental Status Update: Shae was alert and oriented to time, place, and person. She was calm, pleasant and grandiose. Her delusions are the same (e.g. believes she has a lot of money, she has a mansion, she is going to give people cars, etc.). She continues to have non-threatening voices (voice of ex-, Fernandez, in the right ear and daughter's (Luci) in the left). She remains coherent with an occasional tangent. She described her mood as "very happy". Her affect is elated /elevated and expansive. Shae denied feeling hopeless, denied feeling worthless and denied thoughts of suicide. She denied thoughts of violence or homicide. Assessment Update: Shae Fernandez is a 63-year-old White Woman who has been on the Inpatient Psychiatric Unit since 03/29/2018. Although Shae continues to have grandiose delusions and audio hallucinations, she is coherent and in good behavioral control. She is calm and has not voiced any thoughts of suicide or homicide throughout her stay Treatment Plan Update: I suggested going up on Geodon but she was against it. Will await for the next step in cross titration until after the probate hearing (conservatorship with added medication cobian) Continue Zyprexa 10 mg QHS Continue Geodon 40 mg with breakfast and with Supper Continue other medications unchanged
--- NOTE | 2018-05-03 12:07 | SOCIAL WORKER PROG NOTE PSYCH ---
Social Work Progress Note Progress Note I Herb Elias met with Rajani today in her room after focus group. She stated that focus group went well and seafood was discussed in the group. She reported sleeping well through the night without hearing voices. She also described her mood as high because she" is excited to start her new life". She presented with delusional thinking that she is discharging and going to her house in [place]. She was also under the impression that Fernandez and her daughter were coming in on sunday to have a meeting and taking her home. I asked where she heard this from and she claimed the Dr Lugo (psychiatrist) told her she can leave if she has a roof over her head. She is having constant thoughts of Fernandez and how she has known him for 48 years on May 06 of this year. I asked if she met with Dr. Lugo and she said yes and she thinks he is "cute and scrunchy " The conversation flowed into her grandchildren and wanting to improve her memory. She made it sound like she is having visual hallucinations of her grandchildren as evidence by her stating " I see my grandchildren at at night but i can't remember the details ".
[2018-05-03 19:44] VITALS: BP 128/72
[2018-05-04 07:55] VITALS: BP 130/78
--- NOTE | 2018-05-04 09:58 | CP SOUTH PROGRESS NOTE PSYCH ---
Psych (Inpt) Progress Note Progress Note Include the following elements, when applicable: Involvement in the active treatment of the patient with behavioral observations of the patient and the patient's response to the treatment. Review of the ongoing treatment process in the context of the treatment plan. Indication of how multi-disciplinary staff members are carrying out the treatment plan. Plans for future interventions and recommendations for revision of the treatment plan. Liaison with other physicians/providers. Progress Note: Met with ace and reviewed her chart briefly. She is calmer compared to previous admissions, thought continues to make delusional statements about her boyfriend Fernandez. She was aware of upcoming probate hearing and we did some education about what a conservator means. she slept well and has been eating well. She initially agreed to increase her geodon dose to target her residual disorganization and paranoia, then changed her mind, saying "I don't want to be sedated" despite some education about geodon not being very sedating. MSE: pleasant middle aged woman, well groomed and well dressed. She has ongoing mouth movements but no other tremor or tic. She makes good eye contact. Her speech is normal. Thinking is linear overall, becomes tangential at times but redirectable. Various disorganized statements about her future with Fernandez her boyfriend, but not as floridly delusional as she has been in the past. She does not appear to be hallucinating and denies experiencing recent hallucinations, thoughts to harm herself or anyone else. Insight and judgment are fair in the structure hospital environment but overall poor to extent of her symptoms and ability to participate in her own treatment planning. A: 63 year old woman with long standing history of a psychotic illness, treatment resistant symptoms, with impaired awareness of the severity of her residual symptoms and impaired ability to focus/manipulate treatment related information rationally or make consistent choices specifically regarding her medications. Plan: continue support and education, probate hearing this week for conservatorship with [facility] authority per previous notes.
[2018-05-04 19:27] VITALS: BP 131/67
[2018-05-05 07:39] VITALS: BP 119/63
--- NOTE | 2018-05-05 11:37 | CP SOUTH PROGRESS NOTE PSYCH ---
Psych (Inpt) Progress Note Progress Note Include the following elements, when applicable: Involvement in the active treatment of the patient with behavioral observations of the patient and the patient's response to the treatment. Review of the ongoing treatment process in the context of the treatment plan. Indication of how multi-disciplinary staff members are carrying out the treatment plan. Plans for future interventions and recommendations for revision of the treatment plan. Liaison with other physicians/providers. Progress Note: Stated that she is doing well, has been overall doing well per staff. Has a probate hearing for [place] this Sunday. Stated that it is a woman and she will be in charge of her money, her medication, and that she is okay with this decision. Stated that on May 07 it will be 48 years that her and her ex metagus while telling the story. Went on to tell me a few other stories about her and Fernandez, but overall less euphoric, paranoid compared to usual. MSE: pleasant middle aged woman, well groomed and well dressed. She has no psychomotor slowing/agitation, mouth movements chronic, and occasional tremor in hands. Her eye contact is good and she is well related. Her speech is regular volume and rate. Thinking is somewhat tangential but overall goal directed. No gross delusions today, recounting her history as a young adult and excited about it. She does not appear to be hallucinating and denies experiencing recent hallucinations, thoughts to harm herself or anyone else. Insight and judgment are fair in the structure hospital environment but overall poor to extent of her symptoms and ability to participate in her own treatment planning. A: 63 year old woman with long standing history of a psychotic illness, treatment resistant symptoms, with impaired awareness of the severity of her residual symptoms but overall less euphoric and less manic compared to previous admissions. Plan: continue support and education, probate hearing this week for [place].
[2018-05-05 19:49] VITALS: BP 114/72
[2018-05-06 07:47] VITALS: BP 123/64
--- NOTE | 2018-05-06 08:42 | CP SOUTH PROGRESS NOTE PSYCH ---
Psych (Inpt) Progress Note Progress Note I reviewed Dr. Olivarez's notes for the weekend (05/04 and 2017). GROUNDSKEEPER SUPERVISOR, RN, OTR/L, Group and Activities Therapist, and Psychiatrist discussed the pt.'s progress, inpatient treatment plan, and aftercare plans. Vital Signs: Date Time Temp Pulse B/P 05/06 0747 97.1 92 123/64 05/05 1949 97.6 94 114/72 Mental Status Update: Shae was alert and oriented to time, place, and person. She was calm and pleasant. She does not bring up grandiose delusions as much ( compared to last week). She continues to have non-threatening voices. She remains coherent with an occasional tangent. Her mood today was "nervous about going to court," and her affect was within normal range. Shae denied feeling hopeless, denied feeling worthless and denied thoughts of suicide. She denied thoughts of violence or homicide. Assessment Update: Shae Fernandez is a 63-year-old White Woman who has been on the Inpatient Psychiatric Unit since 03/29/2018. Shae is showing improvement and awaiting a bed openning at [facility] She is calm and has not voiced any thoughts of suicide or homicide throughout her stay Treatment Plan Update: Reduce Zyprexa to 7.5 mg QHS Increase Geodon to 40 mg with breakfast and with 60 mg with Supper Continue other medications unchanged
--- NOTE | 2018-05-06 15:52 | SOCIAL WORKER PROG NOTE PSYCH ---
Social Work Progress Note Progress Note Rajani shared that she is anxious [facility]. She asked who would be there. I gave her as much information as I could. I emphasized why the team here wanted her to be conserved. She is accepting. Stated she spent time paying over $300 today to get her phone and Fernandez's phone turned back on. She didn't talk to Fernandez all weekend. Reports voices today of Fernandez and Luci (daughter). She also reported seeing people on TV waving to her. She says it makes her feel happy. She was laughing at the end of our conversation due to internal stimuli and what the voices seemed to be saying to her today.
[2018-05-06 19:25] VITALS: BP 139/72
[2018-05-07 07:41] VITALS: BP 123/76
--- NOTE | 2018-05-07 09:13 | CP SOUTH PROGRESS NOTE PSYCH ---
Psych (Inpt) Progress Note Progress Note GREASE MACHINE WORKER, RN, OTR/L, Group / Activities Therapist, and Psychiatrist discussed the pt.'s progress, inpatient treatment plan, and aftercare plans. Vital Signs: Date Time Temp Pulse B/P O2 05/07 0741 97.7 96 123/76 05/065 98.6 100 139/72 Mental Status Update: Pt. was alert & oriented to time, place, and person. She was calm and pleasant. She does not bring up grandiose delusions as much (compared to last week). She continues to have non-threatening voices. She remains coherent with an occasional tangent. Her mood today was "nervous about going to court," and her affect was within normal range. Shae denied feeling hopeless, denied feeling worthless and denied thoughts of suicide. She denied thoughts of violence or homicide. Assessment Update: Pt. is a 63-year-old White Woman who has been on the Inpatient Psychiatric Unit since 03/29/2018. Shae is showing improvement and awaiting a bed openning at [facility] She is calm and has not voiced any thoughts of suicide or homicide throughout her stay Treatment Plan Update: Continue Zyprexa 7.5 mg QHS Continue Geodon 40 mg with breakfast and with 60 mg with Supper Continue other medications unchanged
--- NOTE | 2018-05-07 14:01 | SOCIAL WORKER PROG NOTE PSYCH ---
Social Work Progress Note Progress Note Rajani's Sister Erma called stating this morning that she wants to be Rajani's conservator and that she is sorry for not being involved, but she was waiting for Rajani's daughter to step in and hasn't. She stated she was planning on coming to the hearing at 1pm and advocate for this. I told her that my recommendation is for it not to be family as it often can cause problems. Asked Rajani what her feelings may be on the matter? She said she talked to her Sister about it and then stated "if you can't trust family who can you trust." I told Rajani that it would be discussed further at the hearing. 1pm hearing held with Hearing Aid Mechanic Poornima, Pediatric Audiologist Roby (disability representative Rajani), Rajani's Sister Erma, Dr. Lugo, the proposed conservator ([place]) and this senior technical writer. Erma (sister) stated during the hearing that she has been appointed power of prosecuting attorney in the past and should anything happen she would be appointed conservator. She said she has given [facility] this documentation many times and it should be part of her record. I asked when this document may have last been submitted? She said probably about 4 years ago. Rajani advocated to not have her Sister as Conservator stating she wanted Erma to have a life and not worry about her. She didn't want to be a burden on her sister and just wanted to be sisters. Despite Rajani's wishes, the court needs to explore if this document exists and continue her hearing to a later date. Date to be determined. Erma wanted to do a DSS application with Rajani while she was here. I told her that it was not visiting hours at this time and it would have to wait.
[2018-05-07 20:06] VITALS: BP 104/72
[2018-05-08 07:55] VITALS: BP 138/56
--- NOTE | 2018-05-08 10:13 | SOCIAL WORKER PROG NOTE PSYCH ---
Social Work Progress Note Progress Note Called [facility] admissions. I was told that there are about 8 or 9 people on the list for beds. Faxed over this past week's clinical to them for an update. Spoke with Giulia Marsh at Probate [address]. The Child Specialist is trying to move the hearing to next week if possible. She asked if documention had been found about the Sister being the healthcare inbound sales representative? I told her that there was a document found from 2013, but nothing was signed. I faxed it to her office. Met with Rajani. She remains grandiose about Fernandez and her having tons of friends and people loving them. 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 She shared that her Sister told her not to call her anymore after embarrassing her in front of everyone at the hearing yesterday. Apparently her Sister was taken back by Rajani's comment about not wanting her to be her conservator. Rajani is happy to have the other person assigned. She is feeling happy today. Mood is a little elevated. States she is "fixed now." Asked what she is fixed from? She said "I was having an identity issue."
--- NOTE | 2018-05-08 11:19 | CP SOUTH PROGRESS NOTE PSYCH ---
Psych (Inpt) Progress Note Progress Note RN IMCU, RN, OTR/L, Group / Activities Therapist, and Psychiatrist discussed the pt.'s progress, inpatient treatment plan, and aftercare plans. Vital Signs: Date Time Temp Pulse B/P 05/08 0755 96.5 76 138/56 Mental Status Update: Pt. was alert & oriented to time, place, and person. She seemed to be in good spirits: calm, pleasant, with animated affect. She does not bring up grandiose delusions as much (compared to last week). She continues to have non-threatening voices. She remains coherent with an occasional tangent. Shae denied feeling depressed, denied feeling hopeless, denied feeling worthless, and denied thoughts of suicide. She denied thoughts of violence or homicide. Assessment Update: Pt. is a 63-year-old White Woman who has been on the Inpatient Psychiatric Unit since March 29, 2018. Since her admission, Shae has shown improvement and awaiting a bed openning at [facility]. She is calm and has not voiced any thoughts of suicide or homicide throughout her stay. Treatment Plan Update: Continue Zyprexa 7.5 mg QHS Continue Geodon 40 mg with breakfast and with 60 mg with Supper Continue other medications unchanged
[2018-05-08 19:58] VITALS: BP 130/62
[2018-05-09 07:43] VITALS: BP 123/68
--- NOTE | 2018-05-09 11:53 | SOCIAL WORKER PROG NOTE PSYCH ---
See Addendum Social Work Progress Note Progress Note I Herb Elias met with Rajani this morning. Prior to meeting with her she was socializing in the lounge with peers. During the meeting her affect was positive she was alert and engaged throughout the conversation. She is still experiencing auditory hallucinations hearing both Fernandez and Luci's voices. She stated that she spoke with Fernandez on the phone last night and this morning and is under the impression that he is coming to visit her on Sunday. This led into a brief discussion of her grandchildren who Rajani comments " that she loves them but they are wild and are always correcting her of small things such as the names of TV shows." She mentioned that her sister is still mad at her but she is not taking it personally. Rajani expressed that she is connecting well with peers on the unit and she is "riding the waves which are all about trust". She reports and eating and sleeping well. She is enjoying the groups on the unit and showed me the box she made in focus group. She did not have any concerns to discuss.
--- NOTE | 2018-05-09 12:02 | CP SOUTH PROGRESS NOTE PSYCH ---
Psych (Inpt) Progress Note Progress Note CD STORAGE AND MATERIALS MAKE UP HELPER, RN, OTR/L, Group / Activities Therapist, and Psychiatrist discussed the pt.'s progress, inpatient treatment plan, and aftercare plans. Vital Signs: Date Time Temp Pulse B/P 05/09 0743 97.5 96 123/68 05/08 1958 99.1 96 130/62 Mental Status Update: Pt. was alert & oriented to time, place, and person. She seemed to be in good spirits: calm, pleasant, with animated affect. She does not bring up grandiose delusions as much (compared to last week). She continues to have non-threatening voices. She remains coherent with an occasional tangent. Shae denied feeling depressed, denied feeling hopeless, denied feeling worthless, and denied thoughts of suicide. She denied thoughts of violence or homicide. Assessment Update: Pt. is a 63-year-old White Woman who has been on the Inpatient Psychiatric Unit since March 29, 2018. Since her admission, Shae has shown improvement and awaiting a bed openning at [facility]. She is calm and has not voiced any thoughts of suicide or homicide throughout her stay. Treatment Plan Update: Continue Zyprexa 7.5 mg QHS Continue Geodon 40 mg with breakfast and with 60 mg with Supper Continue other medications unchanged
[2018-05-09 19:26] VITALS: BP 137/76
[2018-05-10 07:36] VITALS: BP 129/61
--- NOTE | 2018-05-10 08:03 | CP SOUTH PROGRESS NOTE PSYCH ---
Psych (Inpt) Progress Note Progress Note The pt.'s progress, inpatient treatment plan, and aftercare plans were discussed in the morning treatment planning meeting (team members: Janet No, SOFTWARE MANAGER, RN, OTR/L, and Psychiatrist) Vital Signs: Date Time Temp Pulse B/P O2 05/10 0736 97.9 87 129/61 05/09 1926 98.2 92 137/76 Mental Status: Rajani does not spontaneously bring up grandiose delusions. She does continue to have them but delusions need to be elicited. She is starting to show Parkinsonian tremor now the dose of Geodon is 40+60 mg Still she prefers that to the weight gain with Zyprexa (and poor Glycemic control) She was alert & oriented to time, place, and person. She seemed to be in good spirits: calm, pleasant, with animated affect. She continues to have non- threatening voices. Herbert remains coherent with an occasional tangent. Shae denied feeling depressed, denied feeling hopeless, denied feeling worthless, and denied thoughts of suicide. She denied thoughts of violence or homicide. Assessment Update: Rajani Fernandez (: ) is a 63-year-old White Woman who has been on the Inpatient Psychiatric Unit since March 29, 2018. Shae is coherent, he delusions are less pronounced, she is awaiting a bed openning at [facility]. She is calm and has not voiced any thoughts of suicide or homicide throughout her stay. Treatment Plan Update: Reduce Metformin to 500 mg just once daily at 1700 hours (she is showing better glycemic control with lower Zyprexa dose) Continue Zyprexa 7.5 mg QHS Continue Geodon 40 mg with breakfast and with 60 mg with Supper Continue other medications unchanged
--- NOTE | 2018-05-10 11:35 | SOCIAL WORKER PROG NOTE PSYCH ---
Social Work Progress Note Progress Note Rajani was in a happy mood today. She was talking about her house in [place] and stated "I just found out today that it has an elevator." Challenged some of her thoughts about this today and stated that I believed these to be delusions. She agreed that her voices are telling her this information and it may not be true. She continued to talk about the house. So I just said "it's nice to fantasize" and she agreed. I told her that the reality though is that she has no where to live right now. She said "Fernandez's working on that." She talked about Fernandez staying at her daughter's house. Admires and respects the life her daughter has made for herself. Sounds like she wishes she were part of it more than she is. Called Probate Court and spoke with Giulia Marsh. She said that the hearing may be on 05/23 and if the Sister does not come up with a signed docment then we will proceed with conservatorship to [place].
[2018-05-10 19:30] VITALS: BP 121/71
[2018-05-11 07:37] VITALS: BP 127/64
--- NOTE | 2018-05-11 12:47 | CP SOUTH PROGRESS NOTE PSYCH ---
Psych (Inpt) Progress Note Progress Note Pt less talkative today than when previously seen. She alert and awake. Notes that he is "just thinking" but declined to expand. Denies SI or HI. Seems to be responding to internal stimuli. Current Medications Sig/Rolando Start time Last Medication Dose Route Stop Time Status Admin Acetaminophen 650 MG Q4P PRN 03/29 1500 AC 04/28 PO 0053 Al Hydroxide/Mg 30 ML Q4-6 PRN PRN 03/29 1500 AC 05/09 Hydroxide PO 2129 Aspirin Buffered 81 MG DAILY 03/30 0900 AC 05/11 PO 0846 Atorvastatin Calcium 40 MG 1700 03/29 1700 AC 05/10 PO 1639 Calcium/Vitamin D 250 MG DAILY 03/30 0934 AC 05/11 PO 0846 Clonazepam 0.5 MG AT BEDTIME 05/07 2100 AC 05/10 PO 05/14 Cyanocobalamin 250 MCG DAILY 04/25 1415 AC 05/11 PO 0846 Levothyroxine Sodium 0.125 MG DAILY AC 03/30 0932 AC 05/11 PO 0615 Magnesium Hydroxide 30 ML AT BEDTIME PRN 04/11 0800 AC 04/30 PO 2046 Metformin HCl 500 MG 1700 05/09 1700 AC 05/10 PO 1639 Multivitamins 1 TAB DAILY 03/30 0933 AC 05/11 PO 0846 Olanzapine 7.5 MG AT BEDTIME 05/06 2100 AC 05/10 PO 203 Ziprasidone 60 MG 05/07 0900 AC 05/11 PO 0846 Ziprasidone 40 MG 1800 05/04 1800 AC 05/10 PO 1805 Vital Signs Date Time Temp Pulse Resp B/P B/P Pulse O2 O2 Flow FiO2 Mean Ox Delivery Rate 05/11 737 97.2 86 127/64 / 1930 98.0 95 121/71 MSE Appearance: as stated age Speech : nl rate, rhythm, volume and prosody Behavior: cooperative Motor: no psychomotor agitation or retardation Mood : good Affect : non-labile, appropriate, constricted, flat Thought process: much less tangential but slower thought process Thought content : no delusions, no paranoia noted, but seems to be responding to internal stimuli Perceptions: denied AVHs, denied SI or HI Insight: poor Judgment: poor A/P: Pt with schizoaffective disorder, bipolar disorder with continued psychotic sx. Continue current medication regimen Encourage integration into the milieu
[2018-05-11 19:39] VITALS: BP 131/76
[2018-05-12 07:30] VITALS: BP 128/61
--- NOTE | 2018-05-12 12:26 | CP SOUTH PROGRESS NOTE PSYCH ---
Psych (Inpt) Progress Note Progress Note Pt notes that she is "pretty good." SLept well. Expressed concerns about her weight and feeling "fat." She also feels that she does not look nice because no bottom teeth. No issues with swallowing or choking. Does not want modified diet and feels she can chew. Denies SI or HI. Current Medications Sig/Rolando Start time Last Medication Dose Route Stop Time Status Admin Acetaminophen 650 MG Q4P PRN 03/29 1500 AC 04/28 PO 0053 Al Hydroxide/Mg 30 ML Q4-6 PRN PRN 03/29 1500 AC 05/09 Hydroxide PO 2129 Aspirin Buffered 81 MG DAILY 03/30 0900 AC 05/12 PO 0831 Atorvastatin Calcium 40 MG 1700 03/29 1700 AC 05/11 PO 1654 Calcium/Vitamin D 250 MG DAILY 03/30 0934 AC 05/12 PO 0831 Clonazepam 0.5 MG AT BEDTIME 05/07 2100 AC 05/11 PO 05/14 Cyanocobalamin 250 MCG DAILY 04/25 1415 AC 05/12 PO 0831 Levothyroxine Sodium 0.125 MG DAILY AC 03/30 0932 AC 05/12 PO 0623 Magnesium Hydroxide 30 ML AT BEDTIME PRN 04/11 0800 AC 04/30 PO 204 Metformin HCl 500 MG 1700 05/09 1700 AC 05/11 PO 1655 Multivitamins 1 TAB DAILY 03/30 0933 AC 05/12 PO 0831 Olanzapine 7.5 MG AT BEDTIME 05/06 2100 AC 05/11 PO 202 Ziprasidone 60 MG 05/07 0900 AC 05/12 PO 0831 Ziprasidone 40 MG 1800 05/04 1800 AC 05/11 PO 1713 Vital Signs Date Time Temp Pulse Resp B/P B/P Pulse O2 O2 Flow FiO2 Mean Ox Delivery Rate 05/12 730 97.5 96 128/61 05/11 193 98.5 93 131/76 MSE Appearance: as stated age Speech : nl rate, rhythm, volume and prosody Behavior: cooperative Motor: no psychomotor agitation or retardation Mood : pretty good Affect : non-labile, appropriate, constricted, flat Thought process: much less tangential but slower thought process Thought content : no delusions, no paranoia noted, does not seem to be responding to internal stimuli Perceptions: denied AVHs, denied SI or HI Insight: poor Judgment: poor A/P: Pt with schizoaffective disorder, bipolar disorder with continued psychotic sx, though improved. Continue current medication regimen Encourage integration into the milieu
[2018-05-12 20:01] VITALS: BP 122/69
[2018-05-13 07:59] VITALS: BP 109/53
--- NOTE | 2018-05-13 08:27 | CP SOUTH PROGRESS NOTE PSYCH ---
Psych (Inpt) Progress Note Progress Note I reviewed Dr. Shi's notes for the weekend of May 11 and 2017. The pt.'s progress, inpatient treatment plan, and aftercare plans were discussed in the morning treatment planning meeting (team members: Janet No LCSW; Aurelia Field, RN; OTR/L, and Psychiatrist) Vital Signs: Date Time Temp Pulse B/P 05/13 0759 97.4 87 109/53 05/12 2001 98.3 93 122/69 Mental Status: Shae's grandiose delusions are dormant/require eliciting to bring to surface. Mild Parkinsonian tremor. She was alert & oriented to time, place, and person. She seemed to be in good spirits: calm, pleasant, with animated affect. She continues to have non-threatening voices. Shae remains coherent with an occasional tangent. Shae denied feeling depressed, denied feeling hopeless, denied feeling worthless, and denied thoughts of suicide. She denied thoughts of violence or homicide. Assessment Update: Shae Fernandez (: ) is a 63-year-old White Woman who has been on the Inpatient Psychiatric Unit since March 29, 2018. Shae is coherent, he delusions are less pronounced, she is awaiting a bed openning at [facility]. She is calm and has not voiced any thoughts of suicide or homicide throughout her stay. Treatment Plan Update: 1) Reduce Zyprexa to 5 mg QHS 2) Increase Geodon to 60 mg BID Continue other medications unchanged
--- NOTE | 2018-05-13 16:41 | SOCIAL WORKER PROG NOTE PSYCH ---
Social Work Progress Note Progress Note Conservatorship hearing is scheduled for 05/23 at 1pm. Rajani was sleeping soundly in her room this afternoon. We did not get to meet face to face today.
[2018-05-13 19:27] VITALS: BP 118/76
[2018-05-13 19:36] VITALS: BP 124/55
[2018-05-14 07:41] VITALS: BP 117/73
--- NOTE | 2018-05-14 09:00 | SOCIAL WORKER PROG NOTE PSYCH ---
Social Work Progress Note Progress Note Rajani started our meeting this morning by stating she was a little down due to the reality of her situation. She stated "I have no money, no mansion, no limo, and no where to live." She also stated she was upset over not hearing from Fernandez in 2 days. Shortly later in the conversation she then started to say that she believes that she does have alot of money somewhere and that Erma is in charge of it and is keeping it from her. She believes this money is from "all the movies" her and Fernandez have done. She is afraid that Erma (sister) is mad at her. She hasn't heard from her since last week when she told her not to call her anymore. I told her that the hearing is scheduled for 05/23. She continues to feel that [place] would be a better conservator for her than her sister. Rajani asked if we found the document her sister was referencing? I told her that there was a document found from 4 years ago, but there were no signatures on it. She said she doesn't recall the word conservator ever coming up before. Rajani doesn't seem to recall that she did have a voluntary conservator at one point. Called [facility] and spoke with Genevieve in admissions. She did asked for a week's worth of clinical to be faxed over. She didn't indicate that there was any bed openings anytime soon. Faxed clinical.
--- NOTE | 2018-05-14 09:10 | CP SOUTH PROGRESS NOTE PSYCH ---
Psych (Inpt) Progress Note Progress Note The pt.'s progress, inpatient treatment plan, and aftercare plans were discussed in the morning treatment planning meeting (team members: Janet No LCSW; Aurelia Field RN; OTR/L, and Psychiatrist) Vital Signs: Vital Signs Date Time Temp Pulse B/P B/P Pulse O2 05/14 0741 97.5 100 117/73 05/13 1936 97.5 76 124/55 Mental Status: The patient is in good spirits. Her grandiose delusions are dormant/require eliciting to bring to surface. She has a Parkinsonian tremor which is somewhat more evident at the new dose of Geodon-60 mg BID (still, she prefers the tremor to the weight gain with Zyprexa). She was alert & oriented to time, place, and person. The seemed to be in good spirits, calm, pleasant, with animated affect. She continues to have non-threatening voices. Shae remains coherent with an occasional tangent. The patient denied feeling depressed, denied feeling hopeless, denied feeling worthless, and denied thoughts of suicide. She denied thoughts of violence or homicide. Assessment Update: A 63-year-old White Woman who has been on the Inpatient Psychiatric Unit since March 29, 2018. The is coherent and her delusions are now dormant, she is awaiting a bed openning at [facility] ([facility]). The patient is calm , pleasant, and has not voiced any thoughts of suicide or homicide throughout her stay. Treatment Plan Update: 1) Continue Zyprexa 5 mg QHS for 3 more weeks 2) Continue Geodon 60 mg BID for 3 more weeks Continue other medications unchanged
[2018-05-14 19:32] VITALS: BP 129/74
--- NOTE | 2018-05-15 07:37 | CP SOUTH PROGRESS NOTE PSYCH ---
Psych (Inpt) Progress Note Progress Note The pt.'s progress, inpatient treatment plan, and aftercare plans were discussed in the morning treatment planning meeting (team members: Janet No LCSW; RN; OTR/L, and Psychiatrist) Vital Signs: Date Time Temp Pulse B/P 05/15 0742 96.6 98 120/77 05/14 1932 98.4 100 129/74 Mental Status: The patient is alert & oriented to time, place, and person. She is in good spirits Her grandiose delusions are dormant/require eliciting to bring to surface. She has a Parkinsonian tremor which is somewhat more evident at the new dose of Geodon-60 mg BID (still, she prefers the tremor to the weight gain with Zyprexa) . She is calm, pleasant, with animated affect. She continues to have non- threatening voices. Shae remains coherent with an occasional tangent. The patient denied feeling depressed, denied feeling hopeless, denied feeling worthless, and denied thoughts of suicide. She denied thoughts of violence or homicide. Assessment Update: A 63-year-old White female who has been on the Inpatient Psychiatric Unit since March 29, 2018. The is coherent and her delusions are now dormant, she is awaiting a bed openning at [facility] ([facility]). The patient is calm , pleasant, and has not voiced any thoughts of suicide or homicide throughout her stay. Treatment Plan Update: Continue medications unchanged
[2018-05-15 07:42] VITALS: BP 120/77
--- NOTE | 2018-05-15 08:33 | SOCIAL WORKER PROG NOTE PSYCH ---
Social Work Progress Note Progress Note Dr. Lugo and I met with Rajani this morning. She continues to hear voices of Luci and Fernandez that are non-threatening in nature. She says "they think I'm funny." She is giddy as she speaks. She talked about working on her nutritional intake as she is worried about weight gain. Denies issues with sleep. Klonopin was changed to a PRN at bedtime in case she may need it. She reported sleeping well last night without it. She is aware of the hearing next week for [employer]. She doesn't think that her Sister will be there, due to being in [place] on vacation. She has not talked with her. I asked about any money being left to her possibly by her Brother? She doesn't believe so, but states she never received any money after her Mother's passing and believes that there may be money from her Condo. She thought it had been left in her name, but nothing ever came of it. She doesn't trust her family in that regard.
[2018-05-15 19:31] VITALS: BP 113/68
[2018-05-16 07:34] VITALS: BP 106/72
--- NOTE | 2018-05-16 13:08 | CP SOUTH PROGRESS NOTE PSYCH ---
Psych (Inpt) Progress Note Progress Note The pt.'s progress, inpatient treatment plan, and aftercare plans were discussed in the morning treatment planning meeting (team members: Janet No LCSW; RN; OTR/L, and Psychiatrist) Mental Status: The patient is alert & oriented, in good spirits, and in good behavioral control. Her grandiose delusions are dormant/require eliciting to bring to surface. She has a Parkinsonian tremor. The patient is calm, pleasant, with animated affect. She continues to have non-threatening voices. The patient remains coherent (with an occasional tangent), denied feeling depressed, denied feeling hopeless, denied feeling worthless, and denied thoughts of suicide. She denied thoughts of violence or homicide. Assessment Update: A 63-year-old white female who has been on the Inpatient Psychiatric Unit since March 29, 2018. The patient is coherent and her delusions are now dormant, she is awaiting a bed openning at [facility] ([facility]). The patient is calm , pleasant, and has not voiced any thoughts of suicide or homicide throughout her stay. Treatment Plan Update: Continue medications unchanged
--- NOTE | 2018-05-16 16:50 | SOCIAL WORKER PROG NOTE PSYCH ---
Social Work Progress Note Progress Note Rajani was sitting by the [employer] this afternoon. She said she was trying to calm down due to eating too much sugar today. She said she ate too much and then got hyper. I gave Rajani the Probate letter from court about her hearing next . She said she was looking forward to the hearing and feels that the conservator can help her. She still hasn't talked with her Sister since the day her sister came in for the hearing. She shared memories of times her and her sister have fought. Mood appeared stable.
[2018-05-16 20:06] VITALS: BP 122/62
[2018-05-17 07:32] VITALS: BP 121/66
--- NOTE | 2018-05-17 08:53 | CP SOUTH PROGRESS NOTE PSYCH ---
Psych (Inpt) Progress Note Progress Note The pt.'s progress, inpatient treatment plan, and aftercare plans were discussed in the treatment planning meeting (team members: Janet No LCSW; RN; OTR/L, and Psychiatrist) Laboratory Tests 05/17 Cholesterol (<200 MG/DL) 143 TSH &T3 &Free T4 Intrp (0.270 - 4.20 uIU/mL) Pending Vital Signs Date Time Temp Pulse B/P 05/17 0732 97.2 96 121/66 05/16 2006 99.2 96 122/62 Mental Status: The patient is alert & oriented, in good spirits, and in good behavioral control. Her grandiose delusions are dormant/require eliciting to bring to surface. She has a Parkinsonian tremor. The patient is calm, pleasant, with animated affect. She continues to have non-threatening voices. The patient remains coherent (with an occasional tangent), denied feeling depressed, denied feeling hopeless, denied feeling worthless, and denied thoughts of suicide. She denied thoughts of violence or homicide. Assessment Update: A 63-year-old white female who has been on the Inpatient Psychiatric Unit since March 29, 2018. She was admitted because of disorganized thinking, hallucinations, and delusions. Lately, the patient has been/is coherent and her delusions are now dormant, she is awaiting a bed openning at [facility] ([facility]). The patient is calm, pleasant, and has not voiced any thoughts of suicide or homicide throughout her stay. Medication monitoring: So far the side effects that are considered clinically significant are weight gain and pedal parkinsonian tremors. The weight gain is most likely due to the Zyprexa and the dose has been gradually tapered down and gradually replaced with higher doses of Geodon. The parkinsonian tremors are due to the increasing dose of Geodon. The patient has residual tardive dyskinesia but it has shown significant improvement since her previous admission to [facility] Treatment Plan Update: Continue medications unchanged
--- NOTE | 2018-05-17 17:57 | SOCIAL WORKER PROG NOTE PSYCH ---
Social Work Progress Note Progress Note Patient presented as alert, calm, pleasant, cooperative and orientated x3 with stable mood and congruent affect. Patient denied anxiety and depression reporting being "happy." Patient denies SI/HI. Rajani states she has been in [facility] since March 29 and is waiting for a bed at [facility] as well as having a conservator appointed for her. She states that she has been focusing on losing weight and being healthy doing 90 laps walking downstairs today and eating healthier avoiding juices. She hinted at her delusional thought of another living arrangement, a mansion with a resource teacher and elevator stating "but we do not talk about that." The patient reports she is doing well on the unit and enjoys watching [employer] and Wheel of Fortune every night. She spoke of being a Yankee fan and hoping to watch the game [place]ocent.
[2018-05-17 20:35] VITALS: BP 118/67
[2018-05-18 07:41] VITALS: BP 118/72
--- NOTE | 2018-05-18 16:05 | CP SOUTH PROGRESS NOTE PSYCH ---
Psych (Inpt) Progress Note Progress Note Include the following elements, when applicable: Involvement in the active treatment of the patient with behavioral observations of the patient and the patient's response to the treatment. Review of the ongoing treatment process in the context of the treatment plan. Indication of how multi-disciplinary staff members are carrying out the treatment plan. Plans for future interventions and recommendations for revision of the treatment plan. Liaison with other physicians/providers. Progress Note: Case discussed with charge nurse in AM. Pt has been visible in the unit and cooperative with care.] Upon assessment reports feeling "more leveled" OCnitnues to have intermittent AH non threathening and pleasant in nature. " everything is going to be okay". Taking medications as prescribed. Denies any SE. Mentions she is planning to " renew vows" with her BF". MSE Elderly female, pleasant, cooperative fair eye contact. reactive and appropiate affect. No SI/HI still with AVH. TP mostly organized Cog AAox3 I/J Fair. A/P 63 y/o WF Schizoaffective Dx. Improving. Toleratign medication changes. Will continue same tx plan.
[2018-05-18 20:06] VITALS: BP 139/65
[2018-05-19 07:48] VITALS: BP 123/69
--- NOTE | 2018-05-19 14:33 | CP SOUTH PROGRESS NOTE PSYCH ---
Psych (Inpt) Progress Note Progress Note Include the following elements, when applicable: Involvement in the active treatment of the patient with behavioral observations of the patient and the patient's response to the treatment. Review of the ongoing treatment process in the context of the treatment plan. Indication of how multi-disciplinary staff members are carrying out the treatment plan. Plans for future interventions and recommendations for revision of the treatment plan. Liaison with other physicians/providers. Progress Note: Rajani remains stable. Visible in the unit. LIkes to walk " I did 2 miles yesterday". Toelrating medications well " I like Geodon". Sleep and appetite regular. Knows she is awaiting for a respite bed. MSE Elderly woman, Fairly groomed. bright affect. cooperative. No SI/HI .NoAVH . not overt delusional themes. organized and linear mostly. Cog Aaox3 I/J Fair. A/P 63 y/o WF. Schizoaffective Disorder, MOst likely at baseline. Awaiting for respite bed. Continue same tx plan.
[2018-05-19 19:54] VITALS: BP 126/59
[2018-05-20 07:46] VITALS: BP 125/75
--- NOTE | 2018-05-20 08:52 | CP SOUTH PROGRESS NOTE PSYCH ---
Psych (Inpt) Progress Note Progress Note The pt.'s progress, inpatient treatment plan, and aftercare plans were discussed in the treatment planning meeting (team members: JOSEF, RN; OTR/L, and Psychiatrist) Vital Signs Date Time Temp Pulse B/P 05/20 0746 97.6 84 125/75 05/19 1954 98.1 90 126/59 Rajani remains in good behavioral control/stable. She is toelrating medications well, denies side effects, "I like Geodon", but she does have mild Parkinsonian shakes (she has mild Tardive Dyskinesia from decades of neuroleptics, and has gained weight with Zyprexa). Sleep and appetite are "good" she is awaiting for a bed at [facility]. bright affect. cooperative. No SI/HI . audio hallucinations are manageable, no overt delusions, organized and linear mostly. Cog Aaox3 I/J Fair. A/P: 63 y/o WF. Schizoaffective Disorder, Doing well despite some AH and grandiose delusions Awaiting a bed at [facility]. Continue same tx plan.
--- NOTE | 2018-05-20 16:47 | SOCIAL WORKER PROG NOTE PSYCH ---
Social Work Progress Note Progress Note Myriam Le from [facility] called to say that they will admit Rajani. I shared that she has a conservatorship hearing this and asked if that would then transfer to their Probate Court. She stated she needed to ask about that and would get back to me. Myriam and I spoke a while later and she shared that she is waiting to see if they can hold the bed for her until Sunday, so she could have the hearing first. She will call tomorrow with an answer. Rajani was informed that she may be leaving this week. She is thankful for her treatment here and looking forward to the next step. She asked if she will still proceed with the conservatorship hearing? I told her that we most likely will be and I will let her know. She shared that she made a comment over the weekend that upset another peer. She didn't seem bothered by the fact that she upset this other individual. Encouraged her to not make sexual or "off putting " comments.
[2018-05-20 20:04] VITALS: BP 132/53
--- NOTE | 2018-05-21 07:42 | CP SOUTH PROGRESS NOTE PSYCH ---
Psych (Inpt) Progress Note Progress Note The pt.'s progress, inpatient treatment plan, and aftercare plans were discussed in the treatment planning meeting (team members: JOSEF, RN; OTR/L, and Psychiatrist) Vital Signs: Vital Signs Date Time Temp Pulse B/P B/P Pulse O2 O2 Flow FiO2 05/21 0748 98.2 87 106/59 05/20 2004 97.9 89 132/53 Rajani is in good spirits. She is (and has been) in good behavioral control. She reports that she is in a "good mood." She denies wishing or thinking of suicide. She is toelrating medications well, denies side effects (but does have mild Parkinsonian shakes and mild Tardive Dyskinesia from decades of neuroleptics, and has gained weight with Zyprexa). She says sleep and appetite are "good". She is awaiting for a bed at [facility], she has bright affect, cooperative. She denies violent thoughts. She reports that audio hallucinations are manageable, no overt delusions, organized and linear mostly. Assessment Update: Rajani Fernandez is a 63 y/o WF. Schizoaffective Disorder, Doing well despite some AH and grandiose delusions Treatment Plan Update: Awaiting a bed at [facility]. Continue same tx plan.
[2018-05-21 07:48] VITALS: BP 106/59
--- NOTE | 2018-05-21 10:32 | SOCIAL WORKER PROG NOTE PSYCH ---
Social Work Progress Note Progress Note Rajani approached me this morning asking if I could contact the proposed conservator to meet with her before the hearing. I told Rajani I could ask the probate court, but couldn't promise that could happen. Rajani reported that her Sister Erma met with her here last night. She said the visit went well. I asked if she was going to come to the hearing? She didn't seem to know. She continues to feel that Erma would not be the right person to be conservator. We talked about the bed possibly opening up at [facility] this week. She said "I don't think I want to go there." She reported that Fernandez and her are going to be getting a place this week and that the doctor is going to discharge her if she has a roof over her head. She remains delusional about her financial situation and stated that the conservator will just help her with giving money to people in need. Reports her goal today is to talk to the proposed conservator. Reports mood is "high up." Continues to hear voices of a non threatening nature. Received a voicemail from Myriam Le at [facility] that they will admit Rajani on Thursday 05/24. They are requesting current labs, EKG, copy of updated legal status and that she come there before late afternoon. I told her I would fax everything to her tomorrow and contact [facility] about a ride.
[2018-05-21 20:07] VITALS: BP 111/69
[2018-05-22 07:34] VITALS: BP 101/52
--- NOTE | 2018-05-22 09:13 | SOCIAL WORKER PROG NOTE PSYCH ---
Social Work Progress Note Progress Note Faxed documents to [facility]. Called Giulia Marsh at [place] [address]. Asked if it was possible for Rajani to talk with Bucky before the hearing? She said she will ask her and give her my number. Rajani was in her room resting around 11: 30a. She reports feeling really tired today and stated she almost fell asleep during group, so she came to lay down. I told her things are definete for Sunday admission to [facility]. She is a little sad about leaving. I tried to give some encouragement that her soon to be conservator would hopefully help her come up with a good discharge plan from there as she deserves it. Called [facility] and scheduled transport to p/u Rajani at 11am on Sunday to bring her to [facility]. Called Myriam Le at [facility] to ensure she got my fax. She said she needed to check. Dimitry later called stating the doctor is requesting a new EKG and current labs.
--- NOTE | 2018-05-22 11:10 | CP SOUTH PROGRESS NOTE PSYCH ---
Psych (Inpt) Progress Note Progress Note The pt.'s progress, inpatient treatment plan, and aftercare plans were discussed in the treatment planning meeting (team members: JOSEF, RN; OTR/L, and Psychiatrist) Vital Signs: Date Time Temp Pulse B/P 05/22 0734 96.1 98 101/52 05/21 2007 97.4 72 111/69 MSE: Shae reported that she was in a "good mood" and she did look to be in good spirits this morning. She was (and has been) in good behavioral control. She denies wishing or thinking of suicide. She reported that she is toelrating the medications well, denied side effects but showed mild Parkinsonian shakes and mild Orofacial Tardive Dyskinesia (The TD most likely from decades of neuroleptics), and has gained weight with Zyprexa). She says sleep and appetite are "good". She is awaiting discharge to [facility] on . Shae was calm and cooperative. She denied violent thoughts. She reports that audio hallucinations are manageable, no overt delusions, organized and linear mostly. Assessment Update: Rajani Fernandez (: ) is a 63-year-old white female with schizoaffective Disorder, Doing well despite some AH and grandiose delusions Treatment Plan Update: Discharge to [facility] on Sunday05/24/2018 Continue same tx plan.
[2018-05-22 19:58] VITALS: BP 148/58
[2018-05-23 07:54] VITALS: BP 136/76
--- NOTE | 2018-05-23 10:29 | CP SOUTH PROGRESS NOTE PSYCH ---
Psych (Inpt) Progress Note Progress Note Laboratory Tests 05/23 Sodium (137 - 145 mmol/L) 143 Potassium (3.5 - 5.1 mmol/L) 4.1 Chloride (98 - 107 mmol/L) 106 Carbon Dioxide (22 - 30 mmol/L) 26 Anion Gap (5 - 16) 11 BUN (7 - 17 mg/dL) 18 H Creatinine (0.5 - 1.0 mg/dL) 0.9 Estimated GFR (>60 ml/min) > 60 BUN/Creatinine Ratio (7 - 25 %) 20.0 Hemoglobin A1c (4.2 - 5.8 %) 6.6 H Total Bilirubin (0.2 - 1.3 mg/dL) 0.5 Direct Bilirubin (< 0.4 mg/dL) 0.1 AST (14 - 36 U/L) 28 ALT (9 - 52 U/L) 33 Alkaline Phosphatase (<127 U/L) 102 Total Protein (6.3 - 8.2 g/dL) 8.2 Albumin (3.5 - 5.0 g/dL) 4.6 Hematology CBC w Diff NO MAN DIFF REQ WBC (4.8 - 10.8 /CUMM) 6.5 RBC (4.20 - 5.40 /CUMM) 4.20 Hgb (12.0 - 16.0 G/DL) 12.4 Hct (37 - 47 %) 37.2 MCV (81.0 - 99.0 FL) 88.4 MCH (27.0 - 31.0 PG) 29.6 MCHC (33.0 - 37.0 G/DL) 33.5 RDW (11.5 - 14.5 %) 14.0 Plt Count (130 - 400 /CUMM) 165 MPV (7.4 - 10.4 FL) 8.6 Gran % (42.2 - 75.2 %) 73.4 Lymphocytes % (20.5 - 51.1 %) 20.0 L Monocytes % (1.7 - 9.3 %) 5.5 Eosinophils % (0 - 5 %) 0.7 Basophils % (0.0 - 2.0 %) 0.4 Absolute Granulocytes (1.4 - 6.5 /CUMM) 4.8 Absolute Lymphocytes (1.2 - 3.4 /CUMM) 1.3 Absolute Monocytes (0.10 - 0.60 /CUMM) 0.4 Absolute Eosinophils (0.0 - 0.7 /CUMM) 0 Absolute Basophils (0.0 - 0.2 /CUMM) 0 Vital Signs Date Time Temp Pulse B/P B/P O2 05/23 0754 96.6 92 136/76 05/22 1958 98.2 81 148/58 The pt.'s progress, inpatient treatment plan, and aftercare plans were discussed in the treatment planning meeting (team members: JOSEF, RN; OTR/L, and Psychiatrist) MSE: Shae reported that her mood remains "very good.' Her affect was bright. She has been--and remains--in good behavioral control. She denies wishing or thinking of suicide. She reported that she is toelrating the medications well, denied side effects Shae showed mild Parkinsonian shakes and mild orofacial tardive dyskinesia (TD most likely from decades of neuroleptics), Shae has gained weight with Zyprexa. She says sleep and appetite are "good". She is awaiting discharge to [facility] on . Shae was calm and cooperative. She denied violent thoughts. She reports that audio hallucinations are manageable, no overt delusions, organized and linear mostly. Assessment Update: Rajani Fernandez (: 1955) is a 63-year-old white female with schizoaffective Disorder, Doing well despite some AH and grandiose delusions Treatment Plan Update: Continue same treatment plan.
[2018-05-23 10:50] LABS: ABSOLUTE BASOPHIL COUNT 0 /CUMM (0.0-0.2); ABSOLUTE EOSINOPHIL COUNT 0 /CUMM (0.0-0.7); ABSOLUTE GRANULOCYTE CT 4.8 /CUMM (1.4-6.5); ABSOLUTE LYMPH COUNT 1.3 /CUMM (1.2-3.4); ABSOLUTE MONOCYTE COUNT 0.4 /CUMM (0.10-0.60); BASOPHIL % 0.4 % (0.0-2.0); EOSINOPHIL % 0.7 % (0-5); GRANULOCYTE % 73.4 % (42.2-75.2); HEMATOCRIT 37.2 % (37-47); MEAN CORPUSCULAR HGB 29.6 PG (27.0-31.0); MEAN CORPUSCULAR HGB CONC 33.5 G/DL (33.0-37.0); MEAN CORPUSCULAR VOLUME 88.4 FL (81.0-99.0); MEAN PLATELET VOLUME 8.6 FL (7.4-10.4); PLATELET COUNT 165 /CUMM (130-400); WHITE BLOOD CELL COUNT 6.5 /CUMM (4.8-10.8)
--- NOTE | 2018-05-23 11:39 | SOCIAL WORKER PROG NOTE PSYCH ---
Social Work Progress Note Progress Note Received a voicemail from Sadia Balbuena ([facility]) stating that [facility] was misinformed and they do not have a bed tomorrow for Rajani Fernandez and they would most likely have one next week. Called Sadia back to clarify this as it was not fair to the patient who believes is leaving tomorrow. Sadia indicated that there was an emergency and someone else got the bed. She stated Rajani should have a bed next week. Conservatorship hearing held for Rajani. Rajani's sister Erma was present. She did not produce a signed document indicating she was Rajani's health care premium representative. She continued to advocate to be her conservator. Rajani's commercial real estate attorney shared that Rajani's opinion remained the same and that she did not want her Sister to be her conservator and would like to proceed with Ashlee Snell. Dr. Lugo also testified as to why a neutral green party and not family would be more appropriate. The Double Spindle Shaper Operator ruled that there was clear and convincing evidence that Rajani needed a conservator of person and estate. Ashlee Snell was appointed. Rajani was happy with the outcome. Met with Daryl and Rajani after the hearing. Shared that Rajani is not going to go to [facility] tomorrow and it may be pushed now to next week. Rajani was fine with that decision. She is happy to remain at [facility]. Ashlee shared her contact number: [phone]. She is okay if Rajani needs it to call her. She may see Rajani again next week. Faxed the conservator decree to [facility].
[2018-05-23 20:15] VITALS: BP 136/68
[2018-05-24 07:42] VITALS: BP 137/70
--- NOTE | 2018-05-24 11:42 | CP SOUTH PROGRESS NOTE PSYCH ---
Psych (Inpt) Progress Note Progress Note Progress Note Laboratory Tests 05/23 Sodium (137 - 145 mmol/L) 143 Potassium (3.5 - 5.1 mmol/L) 4.1 Chloride (98 - 107 mmol/L) 106 Carbon Dioxide (22 - 30 mmol/L) 26 Anion Gap (5 - 16) 11 BUN (7 - 17 mg/dL) 18 H Creatinine (0.5 - 1.0 mg/dL) 0.9 Estimated GFR (>60 ml/min) > 60 BUN/Creatinine Ratio (7 - 25 %) 20.0 Hemoglobin A1c (4.2 - 5.8 %) 6.6 H Total Bilirubin (0.2 - 1.3 mg/dL) 0.5 Direct Bilirubin (< 0.4 mg/dL) 0.1 AST (14 - 36 U/L) 28 ALT (9 - 52 U/L) 33 Alkaline Phosphatase (<127 U/L) 102 Total Protein (6.3 - 8.2 g/dL) 8.2 Albumin (3.5 - 5.0 g/dL) 4.6 Hematology CBC w Diff NO MAN DIFF REQ WBC (4.8 - 10.8 /CUMM) 6.5 RBC (4.20 - 5.40 /CUMM) 4.20 Hgb (12.0 - 16.0 G/DL) 12.4 Hct (37 - 47 %) 37.2 MCV (81.0 - 99.0 FL) 88.4 MCH (27.0 - 31.0 PG) 29.6 MCHC (33.0 - 37.0 G/DL) 33.5 RDW (11.5 - 14.5 %) 14.0 Plt Count (130 - 400 /CUMM) 165 MPV (7.4 - 10.4 FL) 8.6 Gran % (42.2 - 75.2 %) 73.4 Lymphocytes % (20.5 - 51.1 %) 20.0 L Monocytes % (1.7 - 9.3 %) 5.5 Eosinophils % (0 - 5 %) 0.7 Basophils % (0.0 - 2.0 %) 0.4 Absolute Granulocytes (1.4 - 6.5 /CUMM) 4.8 Absolute Lymphocytes (1.2 - 3.4 /CUMM) 1.3 Absolute Monocytes (0.10 - 0.60 /CUMM) 0.4 The pt.'s progress, inpatient treatment plan, and aftercare plans were discussed in the treatment planning meeting (team members: JOSEF, RN; OTR/L, and Psychiatrist) MSE: Shae reported that she's happy about staying at [place] (her bed at [facility] was given to someone else) She reported that her mood remains "very good." Shae has been--and remains--in good behavioral control. She denies wishing or thinking of suicide. She reported that she is toelrating the medications well , denied side effects Shae showed mild Parkinsonian tremors and mild orofacial tardive dyskinesia (TD most likely from decades of neuroleptics), Zyprexa will be discontinued effective immediately, the reason being that Shae has been very bothered by weight gain (she is also type II diabetic) Shae was calm and cooperative. She denied violent thoughts. She reports that audio hallucinations are manageable, no overt delusions, organized and linear mostly. Assessment Update: Rajani Fernandez (: 1955) is a 63-year-old white female who has been on the [facility]patient [facility] Unit [facility] since 03/29/2018 Doing well despite some AH and grandiose delusions Diagnoses: schizoaffective Disorder Type II DM Hypothyroidism Treatment Plan Update: 1) D/C Zyprexa. 2) Change Geodon to 40 mg with breakfast and 80 mg with supper Continue all other medications unchanged
[2018-05-24 20:01] VITALS: BP 114/67
[2018-05-25 07:42] VITALS: BP 131/81
--- NOTE | 2018-05-25 12:57 | CP SOUTH PROGRESS NOTE PSYCH ---
Psych (Inpt) Progress Note Progress Note Include the following elements, when applicable: Involvement in the active treatment of the patient with behavioral observations of the patient and the patient's response to the treatment. Review of the ongoing treatment process in the context of the treatment plan. Indication of how multi-disciplinary staff members are carrying out the treatment plan. Plans for future interventions and recommendations for revision of the treatment plan. Liaison with other physicians/providers. Progress Note: Doing well, has been writign short letters with inspirational statements to multiple staff members. Said she has written 72 in total. They appear to be encouraging, with quotes from the morning groups. She stated that she hopes to be discharged and live with [place] and continue to take her meds. Poor insight overall regarding her global situation and recommendations for further treatment , but overall doing well compared to her baseline - no hypersexual, inappropriate comments, not angry and not actively hallucinating. MSE: pleasant middle aged woman, evidence of TD noted in mouth. Speech is normal. Affect is full and reactive, her mood is good. No psychomotor agitation or slowing. Her thinking is coherent overall. She is somewhat hyper excited and euphoric but no other delusional statements during superficial discussions. Her insight is poor and judgment is adequate. A: 63 year old woman with long standing psychotic illness, appears to be doing well compared to her baseline. Continue current plan of care.
[2018-05-25 19:34] VITALS: BP 145/81
[2018-05-26 07:39] VITALS: BP 141/72
--- NOTE | 2018-05-26 10:02 | CP SOUTH PROGRESS NOTE PSYCH ---
Psych (Inpt) Progress Note Progress Note Include the following elements, when applicable: Involvement in the active treatment of the patient with behavioral observations of the patient and the patient's response to the treatment. Review of the ongoing treatment process in the context of the treatment plan. Indication of how multi-disciplinary staff members are carrying out the treatment plan. Plans for future interventions and recommendations for revision of the treatment plan. Liaison with other physicians/providers. Progress Note: Overnight was awake, pacing, hypersexual, hyperverbal, unable to sleep. Received 1mg clonazepam with good effect around 2am, slept and was awake early this morning as well. Said that she was "too excited" maybe about all the letters she was writing? She has been eating well. She continues to be somewhat excitable/ euphoric, but no internal preoccupation or other gross delusional statements. MSE: pleasant middle aged woman, her grooming and hygiene are good. Her speech is regular rate and rhythm. Her affect is full, reactive overall, and her mood is happy. She has no tremor noted. She has no psychomotor agitation this morning. She is logical and goal directed in her thinking. Does not bring up delusional topics. She is not internally preoccupied and has no thoughts to harm herself or anyone else. Her insight is poor and judgment is adequate. A: 63 year old woman with long standing psychotic illness, appears to be doing well compared to her baseline. Slept poorly overnight with hypersexual statements and required oral PRN medication. Plan: continue current plan of care - added back clonazepam 1mg at night timr PRN insomnia - she said she didn't use it much when she had it, hopefully last night was just one episode and sleep will resume as normal.
[2018-05-26 19:59] VITALS: BP 125/76
[2018-05-27 07:38] VITALS: BP 144/75
--- NOTE | 2018-05-27 10:42 | CP SOUTH PROGRESS NOTE PSYCH ---
Psych (Inpt) Progress Note Progress Note I reviewed Dr. Olivarez's notes for the weekend of 05/25 and 05/26 The pt.'s progress, inpatient treatment plan, and aftercare plans were discussed in the treatment planning meeting (team members: JOSEF, RN; OTR/L, and Psychiatrist) Vital Signs Date Time Temp Pulse B/P B/P Pulse O2 FiO2 05/27 0738 98.2 97 144/75 05/26 1959 98.7 85 125/76 MSE: Shae gave me and other staff "Thank You Letters" She is awaiting a bed at [facility]. She reported that her mood remains "very good." Shae has been/remains in good behavioral control. She denies wishing or thinking of suicide. She reported that she is toelrating the medications well, denied side effects. Shae showed mild Parkinsonian tremors and mild orofacial tardive dyskinesia (TD most likely from decades of neuroleptics). Shae was calm and cooperative. She denied violent thoughts. She reports that audio hallucinations are manageable, no overt delusions, organized and linear mostly. Assessment Update: Rajani Fernandez (: 1955) is a 63-year-old white female who has been on the Inpatient Psychiatric Unit of [facility] since 03/29/2018 Doing well despite some AH and grandiose delusions Diagnoses: schizoaffective Disorder Type II DM Hypothyroidism Treatment Plan Update: 1) Shae refused to consider an increase in Geodon, therefore, will continue dose at 40 mg with breakfast and 80 mg with supper Continue all other medications unchanged
--- NOTE | 2018-05-27 11:41 | SOCIAL WORKER PROG NOTE PSYCH ---
See Addendum Social Work Progress Note Progress Note Pt presents as pleasant, anxious, slightly manic. Pt reports doing well - "the best I've ever been". Pt aware that she is waiting for a bed opening at [facility] but that she won't be discharged today. Pt reports being "thankful" she isn't leaving today as she would like to have more notice so she can be better prepared for discharge. Attempted to reach Myriam Le at [facility] [phone] but she is out today. Spoke to Nursing Supervisior Octavio who reports there are no open beds today but wasn't sure when there would be an opening for Rajani. he suggested calling back tomorrow to speak directly with Dimitry.
[2018-05-27 19:19] VITALS: BP 145/79
[2018-05-28 07:41] VITALS: BP 133/85
--- NOTE | 2018-05-28 14:20 | CP SOUTH PROGRESS NOTE PSYCH ---
Psych (Inpt) Progress Note Progress Note The pt.'s progress, inpatient treatment plan, and aftercare plans were discussed in the treatment planning meeting (team members: JOSEF, RN; Activities therapist, and Psychiatrist) Mental status: Pt. was calm and cooperative. She denied violent thoughts. The pt. is awaiting a bed at [facility]. She reported that her mood remains "very good." She remains in good behavioral control. She denies wishing or thinking of suicide. She reported that she is tolerating the medications well, denied side effects. Shae showed mild Parkinsonian tremors and mild orofacial tardive dyskinesia (TD most likely from decades of neuroleptics). She reports that audio hallucinations are manageable, no overt delusions, Coherent, organized and linear. Treatment Plan Update: 1) Continue ziprasidone (Geodon) 40 mg with breakfast and 80 mg with supper Continue all other medications unchanged
[2018-05-28 19:40] VITALS: BP 149/74
[2018-05-29 07:39] VITALS: BP 115/63
[2018-05-29] MEDS ORDERED: ZIPRASIDONE HCL40 M1 PO (10:06)
[2018-05-29] MEDS ORDERED: VITAMIN B-12250 MCG PO (10:06)
[2018-05-29] MEDS ORDERED: OYSTER SHELL 21 EACH PO (10:06)
[2018-05-29] MEDS ORDERED: ONE DAILY MULT1 EAC2 PO (10:06)
[2018-05-29] MEDS ORDERED: ZIPRASIDONE HCL80 M1 PO (10:06)
[2018-05-29] MEDS ORDERED: SYNTHROID125 MCG PO (10:06)
[2018-05-29] MEDS ORDERED: GLUCOPHAGE500 M1 PO (10:06)
--- NOTE | 2018-05-29 11:10 | Patient Discharge Instructions ---
Psych Discharge Inst General Discharge Information Reason for Admission: delusions and hallucinations Psy Discharge Primary Diag+ schizoaffective Disorder Summary Tests/Major Procedures Lab Cholesterol 143 MG/DL 05/17/18 0620 Cholesterol/HDL Ratio 3 % 04/07/18 0620 Free T4 1.79 ng/dL 05/24/18 0639 HDL Cholesterol 61 mg/dL H 04/07/18 0620 Hemoglobin A1c 6.6 % H 05/23/18 1000 LDL Cholesterol, Calc 119 mg/dL 04/07/18 0620 Triglycerides 149 mg/dL 04/07/18 0620 Studies Pending at DC: none Patient Instructions Contact Information Your Psychiatrist on [facility] was Brittney WANG,Vince * If you are experiencing an emergency related to this hospitalization, please call [phone] to contact the treating psychiatrist or the psychiatrist-on- call. * To Request a copy of your medical records, please contact the Medical Records Department at [phone]. * To request results of studies pending at the time of discharge, please call [phone]. * Continue your Medications until directed to stop by your Healthcare provider. General Medication Information Please continue to take your new medications and your continued home medications , unless otherwise indicated on your discharge medication list, or unless directed by your MD or TRAFFIC ADMINISTRATOR to stop them. Special Instructions Diet Diabetic Activity Normal - Tobacco Use Treatment Offered Post DC Medications Offered: Not Applicable Post DC Tobacco Treatment Plan: Not Applicable - EtOH/Drug Use D/O Treatment Offered Post DC Medications Offered: NA-No EtOH/Drug Use D/O Post DC EtOH/SubAbuse [place] Plan: NA-No EtOH/Drug Use D/O Metabolic Screening Patient on a neuroleptic(s) . Enter below results for Hemoglobin A1C, and lipid panel if obtained during the last 365 days. BMI: 25.700 Blood Pressure: 115/63 Laboratory Results From [facility] (If applicable): Advance Directives Does the Patient have Medical Advance Directives No/Refused further info Does Pt have Psychiatric Advance Directives? No/Refused further info Does Patient have a Designated Surrogate Decision Maker: No Information About Psychiatric Advance Directives Provided? Refused Discharge Plan Post Hospital [facility]
--- NOTE | 2018-05-29 11:38 | CP SOUTH PROGRESS NOTE PSYCH ---
Psych (Inpt) Progress Note Progress Note The pt.'s progress, inpatient treatment plan, and aftercare plans were discussed in the treatment planning meeting (team members: JOSEF, RN; Activities therapist, and Psychiatrist) Vital Signs Date Time Temp Pulse B/P O2 05/29 0739 97.8 98 115/63 05/28 1940 97.3 98 149/74 Mental status: Pt. was calm and cooperative. She denied violent thoughts. The pt. is awaiting a bed at [facility]. She reported that her mood remains "very good." She remains in good behavioral control. She denies wishing or thinking of suicide. She reported that she is tolerating the medications well, denied side effects. Shae showed mild Parkinsonian tremors and mild orofacial tardive dyskinesia (TD most likely from decades of neuroleptics). She reports that audio hallucinations are manageable, no overt delusions. Coherent, organized and linear. Treatment Plan Update: D/C to [facility]
--- NOTE | 2018-05-29 11:39 | DISCHARGE SUMMARY REPORT-PSYCH ---
Visit Information Visit Dates/Diagnosis' Admission Date: 03/29/18 Discharge Date: 05/29/18 Reason for Admission: delusions and hallucinations Psy Discharge Primary Diag: schizoaffective Disorder Hospital Course Significant Lab Findings: Lab Cholesterol 143 MG/DL 05/17/18 0620 Cholesterol/HDL Ratio 3 % 04/07/18 0620 HDL Cholesterol 61 mg/dL H 04/07/18 0620 Hemoglobin A1c 6.6 % H 05/23/18 1000 LDL Cholesterol, Calc 119 mg/dL 04/07/18 0620 Triglycerides 149 mg/dL 04/07/18 06 Course Complications: The patient did not have any complications while she was on the inpatient psychiatric unit. Consultations: The patient had a history and physical examination by the clinical neuropsychologist. Please refer to the patient's electronic health record for the details of the H&P. Allergies: Coded Allergies: No Known Allergies (02/28/18) Hospital Course/TX Response: 03/30/2018: Initial impression and Plan: 63-year-old white female with history of schizoaffective disorder returns approximately 3 weeks after her discharge from the inpatient unit because of what seems to be more delusional than usual and some thought disorder Diagnosis(es): Schizoaffective disorder, bipolar type Tardive dyskinesia of the oral facial muscles Parkinson's disease Initial Treatment Plan: Inpatient psychiatric care Resume Zyprexa Continue other medications unchanged Nursing assessments, vital signs, and patient education Biopsychosocial assessment, collateral information, and aftercare planning by social work Group therapy, milieu therapy, and activities therapy. The patient ended up staying at the inpatient psychiatric unit at [facility] for an extended period of time (2 months) The patient did very well on Zyprexa however she could not do need to complain about the weight gain that she had with Zyprexa, she she also has diabetes mellitus type 2. Zyprexa was chosen and had previous admission to [facility] because of the significant Parkinsonian tremors and tardive dyskinesia she was having in the previous admission. Given the patient's legitimate concerns about the Zyprexa side effects, I started a gradual corss titration with the Zyprexa gradually being reduced and the Geodon dose was gradually increased until the transition was completed. Although the Zyprexa seems to have been a little bit more effective, the patient was able to tolerate Geodon up to the dose at the time of her discharge which was 120 mg per day as 40 mg in the morning and 80 mg with supper The patient did have a mild increase in her parkinsonian shakes and continued to have tardive dyskinesia which is related to many years if not decades of use of neuroleptics in the past including high doses of Haldol. The patient's tardive dyskinesia was localized to the oral facial muscles 05/29/2018: Date Time Temp Pulse B/P O2 05/29 0739 97.8 98 115/63 05/28 1940 97.3 98 149/74 Mental status: Pt. was calm and cooperative. She denied violent thoughts. The pt. is awaiting a bed at [facility]. She reported that her mood remains "very good." She remains in good behavioral control. She denies wishing or thinking of suicide. She reported that she is tolerating the medications well, denied side effects. Shae showed mild Parkinsonian tremors and mild orofacial tardive dyskinesia (TD most likely from decades of neuroleptics). She reports that audio hallucinations are manageable, no overt delusions. Coherent, organized and linear. Treatment Plan Update: D/C to [facility] Discharge HBIPS - Tobacco Use Treatment Offered Post DC Medications Offered: Not Applicable Post DC Tobacco Treatment Plan: Not Applicable - EtOH/Drug Use D/O Treatment Offered Post DC Medications Offered: NA-No EtOH/Drug Use D/O Post DC EtOH/SubAbuse [place] Plan: NA-No EtOH/Drug Use D/O Metabolic Screening - Screen if on a Neuroleptic Medication - Metabolic screening should include: - Blood Pressure, BMI, Glucose or Hgb A1c, & a - Lipid profile from within the past 365 days. Metabolic Screening Patient on a neuroleptic(s) . Enter below results for Hemoglobin A1C, and lipid panel if obtained during the last 365 days. BMI: 25.700 Blood Pressure: 115/63 Laboratory Results From [facility] (If applicable): Lab Cholesterol 143 MG/DL 05/17/18 0620 Cholesterol/HDL Ratio 3 % 04/07/18 0620 HDL Cholesterol 61 mg/dL H 04/07/18 0620 Hemoglobin A1c 6.6 % H 05/23/18 1000 LDL Cholesterol, Calc 119 mg/dL 04/07/18 0620 Triglycerides 149 mg/dL 04/07/18 0620 Discharge Instructions General Discharge Information Multiple Neuroleptics: Not Applicable Discharge Diet Diabetic Discharge Activity Normal DC [facility] Referrals Ordered Referrals Provider Referral 05/24/18 For Groups: [[facility]] Admission to [facility]: 05/24/18 Address: [address] [place] [id number] Prescriptions Stop taking the following medications: Clonazepam (Klonopin) 1 MG TABLET ORAL AT BEDTIME Qty = 30 Olanzapine (Zyprexa Zydis) 20 MG TAB.RAPDIS ORAL Every night Qty = 30 Metformin Hydochloride (Glucophage) 500 MG TABLET ORAL 0800,1700 Qty = 60 Levothyroxine Sodium (Synthroid) 137 MCG TABLET ORAL DAILY Qty = 60 Continue taking these medications: Atorvastatin Calcium (Lipitor) 40 MG TABLET 1 Tablet ORAL Every night Qty = 30 Comments: Last Taken:05/28/18 Time:5pm Aspirin (Ecotrin*) 81 MG TABLET.DR 1 Tablet ORAL DAILY Qty = 30 Comments: Last Taken:05/29/18 Time:8am Start taking the following new medications: Ziprasidone HCl (Ziprasidone HCl) 80 MG CAPSULE 80 Milligram ORAL 1800 Qty = 1 No Refills Comments: Last Taken:05/28/18 Time:5pm Ziprasidone HCl (Ziprasidone HCl) 40 MG CAPSULE 40 Milligram ORAL DAILY @8 AM Qty = 1 No Refills Comments: Last Taken:05/29/18 Time:8am Calcium Carbonate/Vitamin D3 (Oyster Shell 250 MG + Vit D Tb) 250 MG CALCIUM ( 625 MG)-125 UNIT TABLET 250 Milligram ORAL DAILY Qty = 1 No Refills Comments: Last Taken:05/29/18 Time:8am Metformin Hydochloride (Glucophage) 500 MG TABLET 500 Milligram ORAL 5 PM Qty = 1 No Refills Comments: Last Taken:05/28/18 Time:5pm Levothyroxine Sodium (Synthroid) 125 MCG TABLET 0.125 Milligram ORAL DAILY BEFORE BREAKFAST Qty = 1 No Refills Comments: Last Taken:05/29/18 Time:7am Cyanocobalamin (Vitamin B-12) (Vitamin B-12) 250 MCG TABLET 250 Microgram ORAL DAILY Qty = 15 No Refills Comments: Last Taken:05/29/18 Time:8am Multivitamin (One Daily Multivitamin) 1 EACH TABLET 1 Tablet ORAL DAILY Qty = 1 No Refills Comments: Last Taken:05/29/18 Time:8am Studies Pending at Discharge none Copies To: [facility]
--- NOTE | 2018-05-29 14:58 | SOCIAL WORKER PROG NOTE PSYCH ---
Social Work Progress Note Progress Note Pt was discharged to [facility] today, she was in good spirits and left the unit in a positive manner via [facility]. Faxed Referral(s) Referred To: [facility] Transition of Care Documents sent: VOLODYMYR Instructions, Health Summary, W10 Faxed to: [facility] Fax #: [phone] Faxed by: Analy Stein Date faxed: 05/29/18 Time Faxed: [phone]
== END 2018-05-29 14:04 | DRG 885 ==
LOC: ERH 21:33 → ENTRNSPT 03-29 13:48 → EDTRNSPTSTS 03-29 13:50 → ERHI 03-29 13:53 → CP SOUTH 03-29 13:53 → CMPTRNSPT 03-29 14:43 → CP SOUTH 03-30 10:28
PROVIDERS: Emergency Medicine; Psychiatry & Neurology Child & Adolescent Psychiatry; Psychiatry & Neurology Psychiatry
DX: F25.9 Schizoaffective disorder, unspecified (principal)
CPT/HCPCS: 36415; 80307; 81001; 87086; 93005; 93010; G0480